=== PATIENT | male | born 2000 | race Caucasian/White ===

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

== ENCOUNTER 2024-04-07 07:07 | Inpatient (IN) ==
--- OUTSIDE RECORDS SUMMARY | 2024-04-07 07:12 | External Medical Summary | Summary of Care ---
Author Name Unknown Organization [facility] Address [address] [place] [address] Phone [phone] Care Team Providers Care Stretch Press Operator Name Role Phone Ursula Rojas MD Primary Care Provid er Encounter Details Date Type Department Care Team (Late st Contact Info) Description 04/02/2024 Population Health External Data Unspecified Department Allergies No known active allergiesdocumented as of this encounter (statuses as of 04/02/2024) Medications Dexmethylphenidate HCl 10 MG TabletIndications: 1 tab 3 times 1 Tablet. 7 Active Sertraline HCl 100 MG Oral Tablet (Zoloft) TAKE 2 TABLETS BY MOUTH EVERY MORNING 2 Active busPIRone HCl 15 MG Oral Tablet (Buspar) Take 1 Tablet by mouth in the morning and 1 Tablet before bedtime. 2 Active guanFACINE HCl ER 4 MG Oral Tablet Extended Release 24 Hour TAKE 1 TAB BY MOUTH AT 8AM DAILY 2 Active Ondansetron 4 MG Oral Tablet Disintegrating (Zofran)Indication s:Nausea Place 1 Tablet on tongue every 8 hours as needed for Nausea. dissolve on tongue. 15 Tablet 5 Active ProAir HFA 108 (90 Base) MCG/ACT Inhalation Aerosol SolutionIndication s:Viral URI with cough Inhale 2 Puffs by mouth every 4 hours as needed for Wheezing or Shortness of Breath. 18 g 5 Active Benzonatate 100 MG Oral Capsule (Tessalon Perles)Indications :Viral URI with cough Take 1 Capsule by mouth 3 times a day as needed for Cough. Do not cut, crush, or chew. 50 Capsule 1 5 Active documented as of this encounter (statuses as of 04/02/2024) Active Problems Problem Noted Date Diagnosed Date Obesity, morbid (more than 1 00 lbs over ideal weight or BMI > 40) 01/21/2022 Other sleep apnea 07/20/2021 Overview (07/20/2021): Mild. See sleep med from 2018 Other atopic dermatitis 07/02/2010 Overview (01/03/2017): ICD-10 update of inactive term Behavioral problems 12/03/2007 Overview (05/28/2015): ICD-10 update of inactive term Asperger's disorder 08/15/2007 Attention deficit hyperactivity disorder (ADHD) 08/17/2005 Overview (06/04/2015): ICD-10 update of inactive term Nystagmus 1999 documented as of this encounter (statuses as of 04/02/2024) Resolved Problems Problem Noted Date Diagnosed Date Resolved Date Prediabetes 06/20/2017 08/26/2021 Overview: Per Prediabetes protocol #1 Dermatitis 10/08/2009 07/02/2010 Body mass index (BMI) of 120 % to less than 140% of 95th percentile for age in pediatric patient 06/04/2009 01/21/2022 Overview (12/12/2023): Per Obesity Taxonomy ICD-10 update of inactive term Obesity, Class I, BMI 30.0-3 4.9 (see actual BMI) 12/03/2007 06/04/2009 Overview (06/04/2009): Per Obesity Taxonomy Febrile convulsion 12/17/2001 2 documented as of this encounter (statuses as of 04/02/2024) Immunizations Name Administration Dates Next Due COVID-19 mRNA, LNP-s, No Pre serve, 2-Dose Series (Moderna) 08/09/2020,07/12/2020 HPV Vaccine, 4-Valent 10/19/2014 HPV Vaccine, 9-Valent 07/20/2021,12/19/2014 Meningococcal Conjugate Vaccine (Menactra/Menveo ) 09/26/2016,12/10/2010 Seasonal Influenza, PF, 6 M & above, IM , (FluLaval or Fluzone) 01/21/2022 TDAP (age 10 and older)(Boostrix) 09/26/2016 TDAP, Age 7 and older, IM (Adacel) 09/26/2016, Varicella Vaccine (Chicken Pox) 11/03/2008 documented as of this encounter Social History Tobacco Use Types Packs/Day Years Used Date Smoking Tobacco: Former Cigarettes Smokeless Tobacco: Never Alcohol Use Standard Drinks/Week Comments Yes 0 (1 standard drink = 0.6 oz pur e alcohol) Sex and Gender Information Value Date Recorded Sex Assigned at Not on file Legal Sex Male 5:38 AM EST Gender Identity Not on file Sexual Orientation Straight 07/20/2021 11 :18 AM EDT documented as of this encounter Plan of Treatment Health Maintenance Due Date Last Done Comments Depression Screening 10/20/2015 10/19/2014 COVID-19 Vaccine ( season) 2023 08/09/2020, 07/12/2020 Influenza Vaccine (FLU shot) (#1) 2023 01/21/2022 DTap/Tdap Vaccines (9 - Td or Tdap) 09/26/2026 09/26/2016, 09/26/2016, 12/10/2010, Additional history exists Hepatitis B Vaccine Completed 10/17/2000, 1999, 1999 MENINGOCOCCAL (MENACTRA/MENVEO) Completed 09/26/2016, 12/10/2010 HPV (Gardasil) Vaccine Completed , 12/19/2014, 10/19/2014 Pneumococcal Vaccine: Pediatrics (0 to 5 Years) and At-Risk Patients (6 to 18 Years and 19+ Years) Aged Out No longer eligib le based on patient's age to complete this topic documented as of this encounter Medical Devices Not on filedocumented as of this encounter Additional Health Concerns Infection Onset Date Last Indicated Resolved Time RSV 03/28/2024 03/28/2024 documented as of this encounter Care Teams Stretch Press Operator Relationship Specialty Start Date End Date Ursula Rojas MD PCP - General Family Medicine 07/20/21 documented as of this encounter
[2024-04-07] MEDS: ONDANSETRON INJ 2 MG/ML 2 ML VIAL IV STA ×3 (07:46→12:15)
[2024-04-07] MEDS: SODIUM CHLORIDE 0.9% 1,000 ML IV ONE ×2 (07:46→08:22)
[2024-04-07 08:03] LABS: Basophils # (auto) 0.02 K/uL (0.00-0.20); Basophils % (auto) 0.2 %; Hematocrit (blood only) 39.8 % (42.0-52.0); Hemoglobin 14.5 g/dl (14.0-18.0); Immature Granulocytes # (auto) 0.08 K/uL (0.01-0.20); Immature Granulocytes % (auto) 0.8 %; Lymphocytes # (auto) 1.77 K/uL (1.20-3.40); Mean Corpuscular Hgb Conc 36.4 g/dL (32.0-36.0); Mean Corpuscular Volume 74.1 fL (80.0-100.0); Mean Platelet Volume 9.4 fL (9.4-12.4); Monocytes # (auto) 0.97 K/uL (0.11-0.59); Monocytes % (auto) 9.3 %; Neutrophils # (auto) 7.56 K/uL (1.40-6.50); Neutrophils % (auto) 72.7 %; Platelet Count 267 K/uL (130-400); RDW Coefficient of Variation 12.6 % (11.5-14.5); RDW Standard Deviation 33.2 fL (36.4-46.3); Red Blood Count 5.37 M/uL (4.70-6.10)
[2024-04-07 08:12] LABS: Albumin Globulin Ratio 1.7 (0.9-2); Albumin Level 4.5 gm/dl (3.4-5.0); BUN Creatinine Ratio 10.9 (10-20); Bilirubin,Total 1.2 mg/dl (0.2-1.0); Calcium 9.2 mg/dl (8.6-10.3); Creatinine Clr Calc Pharmacy 158.1 ml/min; Globulin 2.6 gm/dl (2.5-4.0); Potassium 2.7 mmol/L (3.5-5.1); Total Protein 7.1 gm/dl (6.0-8.3)
[2024-04-07] MEDS: ALBUT/IPRATROP 3MG/0.5MG NEB 3 ML VIAL NEB STA (08:21)
[2024-04-07] MEDS: POTASSIUM CHLORIDE / WTR 10 MEQ/100 ML PLCT IV SCH (08:22)
[2024-04-07 09:49] LABS: Appearance Urine Clear (Clear); Bacteria Urine Automated None Seen (None Seen); Bilirubin Urine Negative (Negative); Blood Urine Negative (Negative); Cast Urine Automated 0-2 /lpf (0-2); Color Urine Yellow; Epithelial Cell Urine Auto 0-2 /hpf (0-2); Glucose Urine UA Negative (Negative); Ketones Urine 2+ (Negative); Leukocyte Esterase Urine Negative (Negative); Nitrite Urine Negative (Negative); Protein Urine Trace (Negative); RBC Urine Automated 0-2 /hpf (0-2); Specific Gravity Urine 1.018 (1.000-1.030); Urobilinogen Urine Negative (Negative); WBC Urine Automated 0-5 /hpf (0-5); pH Urine 6.5 (4.5-7.5)
[2024-04-07] MEDS: diphenhydrAMINE 50 MG/ML VIAL IV STA (10:41)
--- NOTE | 2024-04-07 11:43 | Ultrasound Report ---
US gallbladder CLINICAL HISTORY: vomiting, elevated LFTs COMPARISON STUDY: 04/04/[address] FINDINGS: Pancreas is obscured by overlying bowel gas. Liver demonstrates diffusely increased echogen icity consistent with fatty liver. Majority of the liver is not well seen. There is normal direction of flow in the portal vein. Gallbladder is unremarkable with no gallstones or gallbladder wall thicke nandini. No pericholecystic fluid or ascites. Common bile duct measures normal diameter of 5 mm. Right k idney shows no hydronephrosis. IMPRESSION: 1. No gallstones or evidence of acute cholecystitis seen. 2. Fatty liver. ACT 112: Negative or not required by law. Electronically signed by: Aristides Bell M.D. 04/07/2024 11:41 AM
[2024-04-07] MEDS: MoRPHine SULFATE 4 MG/ML 1 ML CARP\\VIAL IV STA (12:16)
--- NOTE | 2024-04-07 12:47 | History & Physical Report ---
Date of Service April 07, 2024 Assessment & Plan (1) RSV (respiratory syncytial virus infection): (2) Abnormal LFTs (liver function tests): (3) Acute abdominal pain: (4) Schizophrenia: (5) Major depressive disorder, recurrent, severe with psychotic features: (6) Autism spectrum disorder: (7) ADHD: Plan The patient is a 23-year-old male with a past medical history of autism, ADHD, schizophrenia, depression who presented to the ED on 04/07/2024 with complaints of nausea/vomiting x 3 days, recently diagnosed with RSV. Assessment and plan: Acute abdominal pain Intractable nausea/vomiting/hypokalemia Recent RSV Transaminitis Gallbladder ultrasound unremarkable, elevated LFTs could be secondary to viral illness versus medication induced Chest x-ray on 04/04 negative, supportive care for RSV symptoms, antiemetics Check C. difficile/stool culture/A/P CT, clear liquid diet, Hemoccult stool, consult GI Avoid hepatotoxic medications, continue to trend CMP, replete potassium Hx schizophrenia/depression: Continue buspirone, lurasidone Hx ADHD/autism: Continue Adderall/Zoloft A total of 60 minutes was spent on chart review/facilitating plan of care/reviewing diagnostic data/discussion with consultants History of Present Illness Chief Complaint: Nausea/vomiting Primary Care Provider: Ursula Rojas MD The patient is a 23-year-old male with a past medical history of ADHD, depression, schizophrenia, autism who presents to the ED on 04/07/2024 with complaints of continuous nausea/vomiting over the past 3 days and inability to keep any food down. Patient also complains of abdominal pain Patient reported taking Motrin with no relief over the past 2 days. Pt reports not being able to eat or sleep because of the pain. Reports not being able to eat without vomiting. Reports diarrhea x 4 in the past 24 hours. Reports some blood in the stool, reports bright red blood when he wipes. Denies any GI bleeding in the past. Denies recent use of tylenol or alcohol use. Reports the cough comes and goes. Reports bringing up green and white phlegm. Reports some intermittent SOB. No recent changes in medications. Seen in the ER on 04/04/2024 with complaints of a cough at this time and diagnosed with RSV. Chest x-ray at that time was negative At this time, patient had a gallbladder ultrasound that showed hepatomegaly with hepatic steatosis. AST at this time was 84, ALT was 62, alk phos 108 On arrival to the ER today, AST is elevated at 276, ALT 147, stable total bilirubin 1.2, alk phos within normal limits 84, potassium low at 2.7, sodium 134 Repeat gallbladder ultrasound without evidence of cholecystitis, fatty liver again seen The patient was given IV fluids and IV potassium in the ER Patient be admitted for further management of RSV and intractable nausea/vomiting/abdominal pain Allergies Allergy/AdvReac Type Severity Reaction Status Date / Time latex Allergy Severe Hives/Sweat Unverified 04/07/24 11:48 ing/Swellin g/SOB pollen extracts Allergy Hives Unverified 04/07/24 11:48 Home Medications Medication Instructions Recorded Confirmed Type dexmethylphenidate 10 mg tablet 10 mg PO TID 02/12/18 04/07/24 History guanfacine 4 mg tablet,extended 4 mg PO QAM 11/21/20 04/07/24 History release 24 hr sertraline 100 mg tablet 200 mg PO QAM 11/21/20 04/07/24 History albuterol sulfate 90 mcg/actuation 2 puffs inhalation Q4H PRN 04/04/24 04/07/24 History aerosol inhaler shortness of breath or wheezing benzonatate 100 mg capsule 100 mg PO TID PRN Cough 04/04/24 04/07/24 History buspirone 15 mg tablet 22.5 mg PO BID 04/04/24 04/07/24 History lurasidone 80 mg tablet 80 mg PO QAM 04/04/24 04/07/24 History omega-3 acid ethyl esters 1 gram 1 g PO BID 04/04/24 04/07/24 History capsule ondansetron 4 mg disintegrating 4 mg PO Q8H PRN Nausea And Vomiting 04/04/24 04/07/24 History tablet potassium chloride 20 mEq 20 meq PO DAILY #7 tabs 04/04/24 04/07/24 Rx tablet,extended release ibuprofen 400 mg tablet 400 mg PO Q6H PRN Pain 04/07/24 04/07/24 History Past Med/Surg History Problem List (Updated 04/04/24 @ 18:04 by Yashira Obando) Hypokalemia (Acute) RSV (respiratory syncytial virus infection) (Acute) Abnormal LFTs (liver function tests) (Acute) Nausea and vomiting (Acute) Acute abdominal pain (Acute) Schizophrenia (Chronic) Major depressive disorder, recurrent, severe with psychotic features (Chronic) Autism spectrum disorder (Chronic) ADHD (Chronic) Medical History Autism Surgical History No significant past surgical history Family History Other No pertinent family history Social History Smoking Status: Former smoker Tobacco Type: E-cigarettes / Vaping Do You Dip or Chew Tobacco: No; Hx Alcohol Use: Yes Alcohol type: hard liquor Hx Substance Use: Yes Last Used Substance: Days (ago) Preferred Language: Moldovan Communication Ability: Effective Histology Technologist Required: No Beliefs That Will Affect Care: None Current Living Situation: Parent Other Information That Helps Us Care for You: No Feels Safe at Home: Yes Safety Concerns: Feels Safe At This Time Gender Identity: Male Assistive Devices: None Review of Systems Review of Systems: All systems reviewed & are unremarkable except as noted in HPI & below Physical Exam Constitutional: WD/WN, vitals as above + obese Eyes: PERRL, conjunctivae normal, anicteric sclerae ENMT: external ear and nose normal, oropharynx normal Neck: trachea midline, no thyromegaly Respiratory: normal respiratory effort, lungs clear to auscultation Cardiovascular: RRR, no murmur, no edema Gastrointestinal (Abdomen): normal bowel sounds, soft, nontender, no hepatosplenomegaly (Diffuse tenderness, no guarding, generalized) Percussion/Palpation: + abdomen tender; no guarding Musculoskeletal: no cyanosis or clubbing, extremities motor strength 5/5 Skin: no rashes, warm and dry Neurologic: PERRL, EOMI, accommodation nl, no face palsy, no dysarthria Psychiatric: A+Ox3, euthymic affect Lymphatic: no cervical or axillary lymphadenopathy Results & Data Results & Data Vital Signs (Past 12 Hours) Vital Signs Temp Pulse Pulse Resp BP BP Pulse Ox 04/07/24 11:42 71 22 117/66 98 04/07/24 11:00 97 04/07/24 09:27 79 24 146/83 H 100 04/07/24 08:36 80 18 148/76 H 96 04/07/24 08:06 66 16 96 04/07/24 07:52 64 04/07/24 07:38 74 22 97 04/07/24 07:38 73 22 138/90 97 04/07/24 07:15 36.5 C 91 H 22 186/84 H 98 O2 Del Method 04/07/24 11:42 Room Air 04/07/24 11:00 Room Air 04/07/24 09:27 04/07/24 08:36 Room Air 04/07/24 08:06 Room Air 04/07/24 07:52 04/07/24 07:38 Room Air 04/07/24 07:38 Room Air 04/07/24 07:15 Room Air Diagnostic Findings Laboratory Results WBC 10.40 K/ul (4.8-10.8) 04/07/24 07:30 RBC 5.37 M/uL (4.70-6.10) 04/07/24 07:30 Hgb 14.5 g/dl (14.0-18.0) 04/07/24 07:30 Hct 39.8 % (42.0-52.0) L 04/07/24 07:30 MCV 74.1 fL (80.0-100.0) L 04/07/24 07:30 MCH 27.0 pg (25.0-34.0) 04/07/24 07:30 MCHC 36.4 g/dL (32.0-36.0) H 04/07/24 07:30 RDW Std Deviation 33.2 fL (36.4-46.3) L 04/07/24 07:30 RDW Coeff of [place] 12.6 % (11.5-14.5) 04/07/24 07:30 Plt Count 267 K/uL (130-400) 04/07/24 07:30 MPV 9.4 fL (9.4-12.4) 04/07/24 07:30 Immature Gran % (Auto) 0.8 % 04/07/24 07:30 Neut % (Auto) 72.7 % 04/07/24 07:30 Lymph % (Auto) 17.0 % 04/07/24 07:30 [place] % (Auto) 9.3 % 04/07/24 07:30 Eos % (Auto) 0.0 % 04/07/24 07:30 Baso % (Auto) 0.2 % 04/07/24 07:30 Neut # (Auto) 7.56 K/uL (1.40-6.50) H 04/07/24 07:30 Lymph # (Auto) 1.77 K/uL (1.20-3.40) 04/07/24 07:30 [place] # (Auto) 0.97 K/uL (0.11-0.59) H 04/07/24 07:30 Eos # (Auto) 0.00 K/uL (0.00-0.50) 04/07/24 07:30 Baso # (Auto) 0.02 K/uL (0.00-0.20) 04/07/24 07:30 Immature Gran # (Auto) 0.08 K/uL (0.01-0.20) 04/07/24 07:30 Sodium 134 mmol/L (136-145) L 04/07/24 07:30 Potassium 2.7 mmol/L (3.5-5.1) L 04/07/24 07:30 Chloride 99 mmol/L (98-107) 04/07/24 07:30 Carbon Dioxide 25 mmol/L (21-32) 04/07/24 07:30 Anion Gap 10 (3-11) 04/07/24 07:30 BUN 7 mg/dl (6-23) 04/07/24 07:30 Creatinine 0.64 mg/dl (0.6-1.4) 04/07/24 07:30 Est Cr Clr Drug Dosing 158.1 ml/min 04/07/24 07:30 eGFR 135.57 04/07/24 07:30 BUN/Creatinine Ratio 10.9 (10-20) 04/07/24 07:30 Glucose 112 mg/dl (70-99(Fasting)) H 04/07/24 07:30 Calcium 9.2 mg/dl (8.6-10.3) 04/07/24 07:30 Total Bilirubin 1.2 mg/dl (0.2-1.0) H 04/07/24 07:30 AST 276 U/L (13-39) H 04/07/24 07:30 ALT 147 U/L (7-52) H 04/07/24 07:30 Alkaline Phosphatase 84 U/L (34-104) 04/07/24 07:30 Total Protein 7.1 gm/dl (6.0-8.3) 04/07/24 07:30 Albumin 4.5 gm/dl (3.4-5.0) 04/07/24 07:30 Globulin 2.6 gm/dl (2.5-4.0) 04/07/24 07:30 Albumin/Globulin Ratio 1.7 (0.9-2) 04/07/24 07:30 Urine Color Yellow 04/07/24 09:32 Urine Appearance Clear (Clear) 04/07/24 09:32 Urine pH 6.5 (4.5-7.5) 04/07/24 09:32 Ur Specific [place] 1.018 (1.000-1.030) 04/07/24 09:32 Urine Protein Trace (Negative) H 04/07/24 09:32 Urine Glucose (UA) Negative (Negative) 04/07/24 09:32 Urine Ketones 2+ (Negative) H 04/07/24 09:32 Urine Blood Negative (Negative) 04/07/24 09:32 Urine Nitrite Negative (Negative) 04/07/24 09:32 Urine Bilirubin Negative (Negative) 04/07/24 09:32 Urine Urobilinogen Negative (Negative) 04/07/24 09:32 Ur Leukocyte Esterase Negative (Negative) 04/07/24 09:32 Urine WBC (Auto) 0-5 /hpf (0-5) 04/07/24 09:32 Urine RBC (Auto) 0-2 /hpf (0-2) 04/07/24 09:32 U Hyaline Cast (Auto) 0-2 /lpf (0-2) 04/07/24 09:32 U Epithel Cells (Auto) 0-2 /hpf (0-2) 04/07/24 09:32 Urine Bacteria (Auto) None Seen (None Seen) 04/07/24 09:32 Impressions Gallbladder Ultrasound 04/07/24 09:59 US gallbladder CLINICAL HISTORY: vomiting, elevated LFTs COMPARISON STUDY: 04/04/[address] FINDINGS: Pancreas is obscured by overlying bowel gas. Liver demonstrates diffusely increased echogenicity consistent with fatty liver. Majority of the liver is not well seen. There is normal direction of flow in the portal vein. Gallbladder is unremarkable with no gallstones or gallbladder wall thickening. No pericholecystic fluid or ascites. Common bile duct measures normal diameter of 5 mm. Right kidney shows no hydronephrosis. IMPRESSION: 1. No gallstones or evidence of acute cholecystitis seen. 2. Fatty liver. ACT 112: Negative or not required by law. Electronically signed by: Aristides Bell M.D. 04/07/2024 11:41 AM Supervising Physician Co-Signing Physician Notes Patient is a 23-year-old male with history of schizophrenia, ADHD, depression autism and other medical problems presents with history of worsening nausea, vomiting and abdominal pain since 3 days duration. Patient has been taking Motrin at home to control his pain. His appetite has been significantly decreased. He also reports poor sleep. States having diarrhea and notes to have bright red blood when he wipes. Denies any bleeding issues in the past. He also reports intermittent cough associated with green to white phlegm and some shortness of breath. He was diagnosed to have RSV 3 days ago. History is also obtained from patient's family at bedside. Please review HPI for complete details of presentation. I personally reviewed blood work and imaging studies. Potassium 2.7. LFTs elevated. Troponin normal. Lipase 6. CT chest showed diffuse hepatic steatosis. Patient denies any recent alcohol or Tylenol/ use. Physical Exam: Vitals signs as noted above General Jared morbidly obese, no apparent distress Head: normocephalic, Atraumatic Eyes: normal inspection, EOMI Neck: supple, Trachea midline Respiratory/Chest: Decreased breath sounds, CTA, No accessory muscle use Cardiovascular: S1, S2, No murmur Abdomen/GI:Soft, generalized tender, Bowel sounds present, no guarding or rigidity Extremities/Musculoskeletal:normal inspection, no edema Neurologic/Psych:AAOX3, grossly no focal neurological deficits Skin: normal color, warm Abdominal pain/nausea, vomiting diarrhea likely due to recent RSV infection Rectal bleed Recent RSV infection Transaminitis Hepatic steatosis Hypokalemia due to GI losses Reviewed gallbladder ultrasound, CT abdomen Lipase normal Conservative management for RSV infection Liquid diet for now Monitor H&H IV Protonix GI consulted Pain control, antiemetics as needed Stool studies pending Replete electrolytes as needed Abnormal EKG Initial troponin negative Trend troponin Check resting echo I personally interviewed and examined the patient at bedside. I have reviewed the advanced practitioner's documentation on the date of service referred in note and agree with plan. Patient's care is coordinated with Belinda KRAUS. Please refer to the documentation above for details of patient's presentation and for discussion of other issues. I spent a total [id number] coordinating, documenting, and providing care for this patient excluding time spent in the performance of separately billed services or time spent by another provider/QHP.
[2024-04-07] MEDS: POTASSIUM CHLORIDE CRTAB 20 MEQ TABCR PO STA (13:04)
--- NOTE | 2024-04-07 14:10 | CT Scan Report ---
EXAMINATION: CT of the abdomen and pelvis performed without contrast TECHNIQUE: Helical CT images from the lung bases through the symphysis pubis were obtained without contrast. Coronal and sagittal reformatted images were generated at a workstation for further assessment. Dose reduction techniques were achieved by using automatic exposure control and/or adjustment of mA and/or kV according to patient size and/or use of iterative reconstruction technique. COMPARISON: None HISTORY: Abdominal pain FINDINGS: Lower chest: No consolidation. No pleural effusion or pneumothorax. Liver: No suspicious liver lesions. Diffuse hepatic steatosis. The liver is enlarged measuring 21.2 cm. Gallbladder: No gallstones. No evidence of acute cholecystitis. Spleen: Normal size. Pancreas: No suspicious pancreatic lesions. The pancreatic duct is not dilated. Adrenal glands: No adrenal nodules. Kidneys: No hydronephrosis or obstructing renal stones. Bladder / Pelvic organs: Unremarkable. Bowel: No bowel obstruction. No abnormal bowel wall thickening. The appendix is unremarkable. There is very minimal stool in the colon. The rectal region appears unremarkable. Lymph nodes: No retroperitoneal, mesenteric, or pelvic lymphadenopathy. Peritoneum / Retroperitoneum: No free fluid or air within the abdomen. Vessels: No infrarenal aortic aneurysm. Bones and soft tissues: No suspicious lesion in the bones. IMPRESSION: No acute finding in the abdomen or pelvis. Diffuse hepatic steatosis. Electronically signed by Jonathan Cano 04-07-2024 2:10 PM
[2024-04-07 14:11] LABS: Magnesium 1.7 mg/dl (1.7-2.4)
--- NOTE | 2024-04-07 14:15 | Electrocardiogram Report ---
Test Reason : Blood Pressure : */* mmHG Vent. Rate : 59 BPM Atrial Rate : 59 BPM P-R Int : 156 ms QRS Dur : 100 ms QT Int : 536 ms P-R-T Axes : 28 22 -3 degrees QTcB Int : 530 ms Sinus bradycardia with marked sinus arrhythmia T wave abnormality, consider anterior ischemia Prolonged QT Abnormal ECG When compared with ECG of 01-Jun-2017 10:06, Non-specific change in ST segment in Anterior leads Nonspecific T wave abnormality, worse in Inferior leads T wave inversion now evident in Anterior leads QT has lengthened Confirmed by Kayla Estrada (Samir) on 04/07/2024 2:15:22 PM Referred By: REFERRED SELF Confirmed By: Kayla Estrada
[2024-04-07] MEDS ORDERED: ONDANSETRON INJ 2 MG/ML 2 ML VIAL IV PRN (15:04)
[2024-04-07] MEDS ORDERED: ALBUTEROL HFA 8 GM INHALER INH PRN (15:04)
[2024-04-07] MEDS: MAGNESIUM SULFATE / D5W 1 GM/100 ML BAG IV ONE (15:19)
--- NOTE | 2024-04-07 15:24 | Emergency Department Note ---
Impression & Plan Abdominal pain, ADHD, Autism spectrum disorder, Schizophrenia, Abnormal LFTs (liver function tests) ED Provider Note CHIEF COMPLAINT: Abdominal pain, vomiting HISTORY OF PRESENT ILLNESS: This 23-year-old male patient presents emergency department with complaints of abdominal pain and vomiting. The patient states he began with abdominal pain several days ago. He was in the emergency department 2 days ago and diagnosed with RSV. At that time he was noted to have elevated AST and ALT, ultrasound of the right upper quadrant as well as a CAT scan had been performed. He describes the abdominal pain as diffuse and cramping. Patient began having some vomiting. He complains of some chills and sweats. REVIEW OF SYSTEMS: A review of systems was performed with positives and pertinent negatives listed in the history of present illness. 10 systems were reviewed and are otherwise negative. ALLERGIES: see below MEDICATIONS: see below PMH: see below SOCIAL HISTORY: see below DDx: Influenza, COVID, bowel obstruction, pancreatitis, dehydration, appendicitis, cholecystitis among others. PHYSICAL EXAM: Vital signs reviewed. General: Well-appearing 23-year-old male, in no significant distress. HEENT: No scleral icterus, PERRLA, neck supple. Moist mucous membranes Cardiovascular: Regular rate and rhythm, no extra sounds. Pulmonary: Clear to auscultation bilaterally, normal work of breathing. Abdomen: Soft, mild diffuse abdominal tenderness, no rebound or guarding, nondistended, positive bowel sounds. Musculoskeletal: Atraumatic, no peripheral edema. Neurologic: Patient awake alert and oriented x 3, speech is clear Skin: Warm, dry, no rash EMERGENCY DEPARTMENT COURSE/MDM: This patient was evaluated and appeared to be in some discomfort. IV access was obtained and laboratory work was drawn. The patient was placed on traffic monitor specialist and noted to be in a normal sinus rhythm. He was hydrated with normal saline solution, given IV morphine and Zofran. Laboratory work is significant for mild hyponatremia and hypokalemia. He was given 20 mEq of IV potassium. Ultrasound of the gallbladder was performed and is negative for acute cholecystitis and cholelithiasis. Fatty liver is appreciated. Liver enzymes are elevated with AST of 276 and ALT of 147. Bilirubin is 1.2. These numbers are slightly higher than they were several days ago. Patient had continued pain and required a second dose of IV morphine and additional hydration. Patient's case was discussed with the hospitalist service who will evaluate the patient for admission and further management. Patient and mother are aware of plan and agree. MONITORING: An order for cardiac monitoring was placed and the patient is noted to be in a normal sinus rhythm at 61 beats per minute. RADIOLOGY: Ultrasound gallbladder: IMPRESSION: 1. No gallstones or evidence of acute cholecystitis seen. 2. Fatty liver. EKG: To my interpretation reveals a normal sinus rhythm with sinus arrhythmia at 59 bpm. Nonspecific T wave abnormality, prolonged QT interval at 430. No PVC, no PAC. DISPOSITION: Admission Past Med/Surg History Problem List (Updated 04/13/24 @ 09:47 by Kati Ballesteros MD) Abdominal pain (Acute) Hypokalemia (Acute) RSV (respiratory syncytial virus infection) (Acute) Abnormal LFTs (liver function tests) (Acute) Nausea and vomiting (Acute) Acute abdominal pain (Acute) Schizophrenia (Chronic) Major depressive disorder, recurrent, severe with psychotic features (Chronic) Autism spectrum disorder (Chronic) ADHD (Chronic) Medical History Autism Surgical History No significant past surgical history Family History Other No pertinent family history Social History Smoking Status: Former smoker Tobacco Type: E-cigarettes / Vaping Do You Dip or Chew Tobacco: No; Hx Alcohol Use: Yes Alcohol type: hard liquor Hx Substance Use: Yes Last Used Substance: Days (ago) Preferred Language: Trinidadian Communication Ability: Effective [employer] Supervisor Required: No Beliefs That Will Affect Care: None Current Living Situation: Parent Feels Safe at Home: Yes Gender Identity: Male Assistive Devices: None Allergies Allergies Allergy/AdvReac Type Severity Reaction Status Date / Time latex Allergy Severe Hives/Sweat Unverified 04/07/24 11:48 ing/Swellin g/SOB pollen extracts Allergy Hives Unverified 04/07/24 11:48 Home Meds Home Medications Medication Instructions Recorded Confirmed dexmethylphenidate 10 mg tablet 10 mg PO TID 02/12/18 04/07/24 guanfacine 4 mg tablet,extended 4 mg PO QAM 11/21/20 04/07/24 release 24 hr sertraline 100 mg tablet 200 mg PO QAM 11/21/20 04/07/24 albuterol sulfate 90 mcg/actuation 2 puffs inhalation Q4H PRN 04/04/24 04/07/24 aerosol inhaler shortness of breath or wheezing benzonatate 100 mg capsule 100 mg PO TID PRN Cough 04/04/24 04/07/24 buspirone 15 mg tablet 22.5 mg PO BID 04/04/24 04/07/24 lurasidone 80 mg tablet 80 mg PO QAM 04/04/24 04/07/24 Previous Rx's Medication Instructions Recorded potassium chloride 20 mEq 20 meq PO DAILY #7 tabs 04/04/24 tablet,extended release promethazine 12.5 mg tablet 12.5 mg PO TID PRN nausea and 04/11/24 vomiting #30 tabs Results & Data (ED) Vital Signs Vital Signs - 24 hr 04/07/24 07:15 04/07/24 07:38 04/07/24 07:38 Temperature 36.5 C Temperature Source Temporal Artery Scan Pulse Rate 91 H 74 Pulse Rate [Apical] 73 Pulse Rate from SpO2 Sensor Pulse Rhythm Regular Pulse Rhythm [Apical] Regular Pulse Strength [Apical] Normal Respiratory Rate 22 22 22 Respiratory Effort / Characteristics Non-Labored Non-Labored Spontaneous Respiratory Depth Normal Normal Respiratory Pattern Regular Blood Pressure 186/84 H Blood Pressure [Left Arm] 138/90 Blood Pressure Mean 118 Blood Pressure Mean [Left Arm] 106 Blood Pressure Position [Left Arm] Semi-fowlers Pulse Oximetry 98 97 97 Oxygen Delivery Method Room Air Room Air Room Air Sepsis Recent Fever Within 48 Hours No Sepsis New/Unexplained Change in Mental Status No Sepsis Action Taken by Nursing No Action Required 04/07/24 07:52 04/07/24 08:06 04/07/24 08:36 Temperature Temperature Source Pulse Rate 64 66 80 Pulse Rate [Apical] Pulse Rate from SpO2 Sensor 73 81 Pulse Rhythm Pulse Rhythm [Apical] Pulse Strength [Apical] Respiratory Rate 16 18 Respiratory Effort / Characteristics Respiratory Depth Respiratory Pattern Blood Pressure 148/76 H Blood Pressure [Left Arm] Blood Pressure Mean 100 Blood Pressure Mean [Left Arm] Blood Pressure Position [Left Arm] Pulse Oximetry 96 96 Oxygen Delivery Method Room Air Room Air Sepsis Recent Fever Within 48 Hours Sepsis New/Unexplained Change in Mental Status Sepsis Action Taken by Nursing 04/07/24 09:27 04/07/24 11:00 04/07/24 11:42 Temperature Temperature Source Pulse Rate 79 71 Pulse Rate [Apical] Pulse Rate from SpO2 Sensor 78 76 Pulse Rhythm Pulse Rhythm [Apical] Pulse Strength [Apical] Respiratory Rate 24 22 Respiratory Effort / Characteristics Respiratory Depth Respiratory Pattern Blood Pressure 146/83 H 117/66 Blood Pressure [Left Arm] Blood Pressure Mean 104 83 Blood Pressure Mean [Left Arm] Blood Pressure Position [Left Arm] Pulse Oximetry 100 97 98 Oxygen Delivery Method Room Air Room Air Sepsis Recent Fever Within 48 Hours Sepsis New/Unexplained Change in Mental Status Sepsis Action Taken by Skilled Nursing Medications Current Medication List: was personally reviewed by me Laboratory Data Attestation: I reviewed the patient's lab results. 04/11/24 07:00 04/11/24 07:00 Lab Results 04/07/24 04/07/24 Range/Units 07:30 09:32 WBC 10.40 (4.8-10.8) K/ul RBC 5.37 (4.70-6.10) M/uL Hgb 14.5 (14.0-18.0) g/dl Hct 39.8 L (42.0-52.0) % MCV 74.1 L (80.0-100.0) fL MCH 27.0 (25.0-34.0) pg MCHC 36.4 H (32.0-36.0) g/dL RDW Std Deviation 33.2 L (36.4-46.3) fL RDW Coeff of [place] 12.6 (11.5-14.5) % Plt Count 267 (130-400) K/uL MPV 9.4 (9.4-12.4) fL Immature Gran % (Auto) 0.8 % Neut % (Auto) 72.7 % Lymph % (Auto) 17.0 % [place] % (Auto) 9.3 % Eos % (Auto) 0.0 % Baso % (Auto) 0.2 % Neut # (Auto) 7.56 H (1.40-6.50) K/uL Lymph # (Auto) 1.77 (1.20-3.40) K/uL [place] # (Auto) 0.97 H (0.11-0.59) K/uL Eos # (Auto) 0.00 (0.00-0.50) K/uL Baso # (Auto) 0.02 (0.00-0.20) K/uL Immature Gran # (Auto) 0.08 (0.01-0.20) K/uL Sodium 134 L (136-145) mmol/L Potassium 2.7 L (3.5-5.1) mmol/L Chloride 99 (98-107) mmol/L Carbon Dioxide 25 (21-32) mmol/L Anion Gap 10 (3-11) BUN 7 (6-23) mg/dl Creatinine 0.64 (0.6-1.4) mg/dl Est Cr Clr Drug Dosing 158.1 ml/min eGFR 135.57 BUN/Creatinine Ratio 10.9 (10-20) Glucose 112 H (70-99(Fasting)) mg/dl Calcium 9.2 (8.6-10.3) mg/dl Magnesium 1.7 (1.7-2.4) mg/dl Total Bilirubin 1.2 H (0.2-1.0) mg/dl AST 276 H (13-39) U/L ALT 147 H (7-52) U/L Alkaline Phosphatase 84 (34-104) U/L Total Protein 7.1 (6.0-8.3) gm/dl Albumin 4.5 (3.4-5.0) gm/dl Globulin 2.6 (2.5-4.0) gm/dl Albumin/Globulin Ratio 1.7 (0.9-2) Lipase 6 L (11-82) U/L Urine Color Yellow Urine Appearance Clear (Clear) Urine pH 6.5 (4.5-7.5) Ur Specific [place] 1.018 (1.000-1.030) Urine Protein Trace H (Negative) Urine Glucose (UA) Negative (Negative) Urine Ketones 2+ H (Negative) Urine Blood Negative (Negative) Urine Nitrite Negative (Negative) Urine Bilirubin Negative (Negative) Urine Urobilinogen Negative (Negative) Ur Leukocyte Esterase Negative (Negative) Urine WBC (Auto) 0-5 (0-5) /hpf Urine RBC (Auto) 0-2 (0-2) /hpf U Hyaline Cast (Auto) 0-2 (0-2) /lpf U Epithel Cells (Auto) 0-2 (0-2) /hpf Urine Bacteria (Auto) None Seen (None Seen) Administered Medications Discontinued Medications Albuterol (Albut/Ipratrop 3mg/0.5mg Neb 3 Ml Vial) 3 ml NEB NOW STA; Protocol Stop: 04/07/24 08:14 Last Admin: 04/07/24 08:21 Dose: 3 ml Documented By: Buspirone HCl (Buspirone 7.5 Mg Tab) 22.5 mg PO BID SOULEYMANE Stop: 05/07/24 15:03 Last Admin: 04/11/24 07:53 Dose: 22.5 mg Documented By: Admin: 04/10/24 20:28 Dose: 22.5 mg Documented By: Admin: 04/10/24 09:12 Dose: 22.5 mg Documented By: Admin: 04/09/24 21:16 Dose: 22.5 mg Documented By: Admin: 04/09/24 07:47 Dose: 22.5 mg Documented By: Admin: 04/08/24 20:42 Dose: 22.5 mg Documented By: Admin: 04/08/24 09:20 Dose: 22.5 mg Documented By: Admin: 04/07/24 22:06 Dose: Not Given Documented By: Admin: 04/07/24 17:26 Dose: Not Given Documented By: NOLAN Dexmethylphenidate HCl (Dexmethylphenidate Hcl 10 Mg Tab) 10 mg PO TID@0800,1130,1430 ON LICENSE OF [facility] Stop: 04/22/24 11:29 Last Admin: 04/11/24 14:41 Dose: 10 mg Documented By: Admin: 04/11/24 11:03 Dose: 10 mg Documented By: Admin: 04/11/24 07:52 Dose: 10 mg Documented By: Admin: 04/10/24 14:00 Dose: 10 mg Documented By: Admin: 04/10/24 11:57 Dose: 10 mg Documented By: Admin: 04/10/24 08:20 Dose: 10 mg Documented By: Admin: 04/09/24 15:18 Dose: 10 mg Documented By: Admin: 04/09/24 12:09 Dose: 10 mg Documented By: Admin: 04/09/24 07:46 Dose: 10 mg Documented By: Admin: 04/08/24 13:44 Dose: 10 mg Documented By: Admin: 04/08/24 12:25 Dose: 10 mg Documented By: GENESIS Diphenhydramine HCl (Diphenhydramine 50 Mg/Ml Vial) 50 mg IV NOW STA Stop: 04/07/24 10:37 Last Admin: 04/07/24 10:41 Dose: 50 mg Documented By: Enoxaparin Sodium (Enoxaparin Inj 40 Mg/0.4 Ml Syr) 40 mg SQ QAM SOULEYMANE Stop: 05/11/24 08:59 Last Admin: 04/11/24 07:53 Dose: 40 mg Documented By: RT Guanfacine HCl (Guanfacine Hcl 1 Mg Ertab) 4 mg PO QAM SOULEYMANE Stop: 05/08/24 17:29 Last Admin: 04/11/24 08:55 Dose: 4 mg Documented By: Admin: 04/10/24 08:21 Dose: 4 mg Documented By: Admin: 04/09/24 07:48 Dose: 4 mg Documented By: Admin: 04/08/24 17:52 Dose: 4 mg Documented By: GENESIS Sodium Chloride (Nss) 1,000 mls @ 999 mls/hr IV .Q1H1M ONE Stop: 04/07/24 08:29 Last Infusion: 04/07/24 08:22 Dose: Infused Documented By: Admin: 04/07/24 07:46 Dose: 999 mls/hr Documented By: Potassium Chloride (K Elver / Wtr) 10 meq in 100 mls @ 100 mls/hr IV Q1H SOULEYMANE Stop: 04/07/24 11:14 Last Infusion: 04/07/24 15:44 Dose: Infused Documented By: Admin: 04/07/24 11:40 Dose: 100 mls/hr Documented By: Infusion: 04/07/24 10:41 Dose: Infused Documented By: Admin: 04/07/24 09:41 Dose: 100 mls/hr Documented By: Infusion: 04/07/24 09:41 Dose: Infused Documented By: Admin: 04/07/24 08:22 Dose: 100 mls/hr Documented By: Sodium Chloride (Nss) 1,000 mls @ 999 mls/hr IV .Q1H1M ONE Stop: 04/07/24 09:14 Last Infusion: 04/07/24 11:39 Dose: Infused Documented By: Admin: 04/07/24 08:22 Dose: 999 mls/hr Documented By: Potassium Chloride/Sodium Chloride (Normal Saline W/20 Meq Kcl) 20 meq in 1,000 mls @ 100 mls/hr IV .Q10H SOULEYMANE Stop: 04/08/24 12:44 Last Admin: 04/09/24 02:56 Dose: Not Given Documented By: Infusion: 04/08/24 21:41 Dose: Infused Documented By: Admin: 04/08/24 09:18 Dose: 100 mls/hr Documented By: Infusion: 04/08/24 06:07 Dose: Infused Documented By: Admin: 04/07/24 18:11 Dose: 100 mls/hr Documented By: NOLAN Magnesium Sulfate/Dextrose (Magnesium Sulfate / D5w) 1 gm in 100 mls @ 50 mls/hr IV ONE ONE Stop: 04/07/24 14:42 Last Infusion: 04/07/24 18:19 Dose: Infused Documented By: Admin: 04/07/24 15:19 Dose: 50 mls/hr Documented By: NOLAN Pantoprazole Sodium (Protonix) 40 mg in 10 mls @ 5 mls/min IV BID SOULEYMANE Stop: 05/07/24 20:59 Last Admin: 04/11/24 07:54 Dose: 5 mls/min Documented By: Admin: 04/10/24 20:28 Dose: 5 mls/min Documented By: Admin: 04/10/24 08:22 Dose: 5 mls/min Documented By: Admin: 04/09/24 21:19 Dose: 5 mls/min Documented By: Admin: 04/09/24 07:49 Dose: 5 mls/min Documented By: Admin: 04/08/24 20:48 Dose: 5 mls/min Documented By: Admin: 04/08/24 09:43 Dose: 5 mls/min Documented By: Admin: 04/07/24 21:14 Dose: 5 mls/min Documented By: CHELSEA Promethazine HCl (Phenergan) 6.25 mg in 50.25 mls @ 201 mls/hr IV Q6H PRN PRN Reason: Nausea And Vomiting Stop: 05/07/24 16:48 Last Infusion: 04/08/24 10:00 Dose: Infused Documented By: Admin: 04/08/24 09:43 Dose: 201 mls/hr Documented By: Infusion: 04/08/24 01:35 Dose: Infused Documented By: Admin: 04/08/24 01:20 Dose: 201 mls/hr Documented By: Infusion: 04/07/24 18:19 Dose: Infused Documented By: Admin: 04/07/24 17:34 Dose: 201 mls/hr Documented By: DLS Potassium Chloride (K Elver / Wtr) 10 meq in 100 mls @ 100 mls/hr IV Q1H SOULEYMANE Stop: 04/08/24 12:44 Last Infusion: 04/08/24 14:45 Dose: Infused Documented By: [facility] Admin: 04/08/24 13:45 Dose: 100 mls/hr Documented By: [facility] Infusion: 04/08/24 13:25 Dose: Infused Documented By: [facility] Admin: 04/08/24 12:25 Dose: 100 mls/hr Documented By: [facility] Infusion: 04/08/24 12:11 Dose: Infused Documented By: [facility] Admin: 04/08/24 11:11 Dose: 100 mls/hr Documented By: [facility] Infusion: 04/08/24 10:19 Dose: Infused Documented By: [facility] Admin: 04/08/24 09:19 Dose: 100 mls/hr Documented By: [facility] Potassium Chloride (K Elver / Wtr) 10 meq in 100 mls @ 100 mls/hr IV Q1H SOULEYMANE Stop: 04/09/24 12:29 Last Infusion: 04/09/24 17:27 Dose: Infused Documented By: Admin: 04/09/24 15:10 Dose: 100 mls/hr Documented By: Infusion: 04/09/24 14:18 Dose: Infused Documented By: Admin: 04/09/24 13:18 Dose: 100 mls/hr Documented By: Infusion: 04/09/24 12:59 Dose: Infused Documented By: Admin: 04/09/24 11:59 Dose: 100 mls/hr Documented By: SANDRA Potassium Chloride (K Elver / Wtr) 10 meq in 100 mls @ 100 mls/hr IV ONE ONE Stop: 04/10/24 09:35 Last Infusion: 04/10/24 10:19 Dose: Infused Documented By: Admin: 04/10/24 09:12 Dose: 100 mls/hr Documented By: RT Potassium Chloride (K Elver / Wtr) 10 meq in 100 mls @ 100 mls/hr IV Q1H SOULEYMANE Stop: 04/11/24 13:14 Last Infusion: 04/11/24 13:42 Dose: Infused Documented By: Admin: 04/11/24 12:23 Dose: 100 mls/hr Documented By: Infusion: 04/11/24 12:11 Dose: Infused Documented By: Admin: 04/11/24 11:11 Dose: 100 mls/hr Documented By: RT Ketorolac Tromethamine (Ketorolac Tromethamine 15 Mg/Ml Vial) 15 mg IV NOW ONE Stop: 04/08/24 05:49 Last Admin: 04/08/24 05:40 Dose: 15 mg Documented By: CHELSEA Lurasidone HCl (Lurasidone Hcl 20 Mg Tab) 80 mg PO QAM SOULEYMANE Stop: 05/08/24 08:59 Last Admin: 04/11/24 08:55 Dose: 80 mg Documented By: Admin: 04/10/24 08:20 Dose: 80 mg Documented By: Admin: 04/09/24 07:48 Dose: 80 mg Documented By: Admin: 04/08/24 09:20 Dose: 80 mg Documented By: GENESIS Miscellaneous (Order Awaiting Action - Dexmethylphenidate 10 Mg Tablet) 1 each N/A QS ON LICENSE OF [facility] Stop: 05/07/24 15:59 Last Admin: 04/08/24 09:05 Dose: 1 each Documented By: Admin: 04/08/24 00:16 Dose: Not Given Documented By: Admin: 04/07/24 16:38 Dose: Not Given Documented By: DLS Morphine Sulfate (Morphine Sulfate 4 Mg/Ml 1 Ml Carp\Vial) 4 mg IV NOW STA Stop: 04/07/24 12:04 Last Admin: 04/07/24 12:16 Dose: 4 mg Documented By: MSG Morphine Sulfate (Morphine Sulfate 2 Mg/Ml Carp) 2 mg IV Q6H PRN PRN Reason: Mod-Sev Pain (Scale 4-10) Stop: 04/21/24 15:51 Last Admin: 04/08/24 09:48 Dose: 2 mg Documented By: EDAbdias Admin: 04/08/24 01:20 Dose: 2 mg Documented By: CHELSEA Non-Formulary Medication (Patient's Own Controlled Med 1) 1 each N/A TID@0800,1130,1430 ON LICENSE OF [facility] Stop: 04/22/24 11:29 Last Admin: 04/11/24 14:41 Dose: Not Given Documented By: Admin: 04/11/24 11:03 Dose: Not Given Documented By: Admin: 04/11/24 07:52 Dose: Not Given Documented By: Admin: 04/10/24 14:00 Dose: Not Given Documented By: Admin: 04/10/24 11:57 Dose: Not Given Documented By: Admin: 04/10/24 08:20 Dose: Not Given Documented By: Admin: 04/09/24 15:18 Dose: 1 tab Documented By: Admin: 04/09/24 12:10 Dose: 1 tab Documented By: Admin: 04/09/24 07:46 Dose: 1 tab Documented By: Admin: 04/08/24 13:45 Dose: 1 tab Documented By: Admin: 04/08/24 12:26 Dose: 1 tab Documented By: GENESIS Ondansetron HCl (Ondansetron Inj 2 Mg/Ml 2 Ml Vial) 4 mg IV NOW STA Stop: 04/07/24 07:30 Last Admin: 04/07/24 07:46 Dose: 4 mg Documented By: Ondansetron HCl (Ondansetron Inj 2 Mg/Ml 2 Ml Vial) 4 mg IV NOW STA Stop: 04/07/24 10:37 Last Admin: 04/07/24 10:41 Dose: 4 mg Documented By: Ondansetron HCl (Ondansetron Inj 2 Mg/Ml 2 Ml Vial) 4 mg IV NOW STA Stop: 04/07/24 12:04 Last Admin: 04/07/24 12:15 Dose: 4 mg Documented By: Potassium Chloride (Potassium Chloride Crtab 20 Meq Tabcr) 40 meq PO NOW STA Stop: 04/07/24 12:32 Last Admin: 04/07/24 13:04 Dose: 40 meq Documented By: Potassium Chloride (Potassium Chloride Crtab 20 Meq Tabcr) 40 meq PO NOW STA Stop: 04/09/24 17:57 Last Admin: 04/09/24 18:11 Dose: Not Given Documented By: SANDRA Potassium Chloride (Potassium Chloride Crtab 20 Meq Tabcr) 40 meq PO NOW STA Stop: 04/10/24 08:37 Last Admin: 04/10/24 09:13 Dose: Not Given Documented By: RT Sertraline HCl (Sertraline Hcl 100 Mg Tablet) 200 mg PO QAM ON LICENSE OF [facility] Stop: 05/08/24 08:59 Last Admin: 04/11/24 08:55 Dose: 200 mg Documented By: Admin: 04/10/24 08:21 Dose: 200 mg Documented By: Admin: 04/09/24 07:49 Dose: 200 mg Documented By: Admin: 04/08/24 09:21 Dose: 200 mg Documented By: [facility] Imaging Data Radiologist's Impression: Gallbladder Ultrasound 04/07/24 09:59 US gallbladder CLINICAL HISTORY: vomiting, elevated LFTs COMPARISON STUDY: 04/04/[address] FINDINGS: Pancreas is obscured by overlying bowel gas. Liver demonstrates diffusely increased echogenicity consistent with fatty liver. Majority of the liver is not well seen. There is normal direction of flow in the portal vein. Gallbladder is unremarkable with no gallstones or gallbladder wall thickening. No pericholecystic fluid or ascites. Common bile duct measures normal diameter of 5 mm. Right kidney shows no hydronephrosis. IMPRESSION: 1. No gallstones or evidence of acute cholecystitis seen. 2. Fatty liver. ACT 112: Negative or not required by law. Electronically signed by: Aristides Bell M.D. 04/07/2024 11:41 AM Discharge Plan Visit Data Chief Complaint: Vomiting Stated Complaint: NAUSEA,VOMITING ED Provider: Kati Ballesteros Discharge Problem: Abdominal pain, ADHD, Autism spectrum disorder, Schizophrenia, Abnormal LFTs (liver function tests) Patient Disposition: Admitted As Inpatient Discharge Instructions Interventions: ED Discharge Assessment Last Done: 04/07/24 13:28 Discharge Problem: Abdominal pain Qualifiers: Abdominal location: generalized Qualified Code(s): R10.84 - Generalized abdominal pain ADHD Qualifiers: Attention deficit-hyperactivity disorder type: unspecified Qualified Code(s): F 90.9 - Attention-deficit hyperactivity disorder, unspecified type Schizophrenia Qualifiers: Schizophrenia type: other Qualified Code(s): F20.89 - Other schizophrenia
[2024-04-07] MEDS: busPIRone 7.5 MG TAB PO SCH (17:26)
[2024-04-07] MEDS: PROMETHAZINE 6.25 MG/50.25 ML BAG IV PRN (17:34)
[2024-04-07] MEDS: NSS + 20MEQ KCL 20 MEQ/1,000 ML BAG IV SCH (18:11)
[2024-04-07 19:09] LABS: Adenovirus F 40/41 PCR Not Detected (NotDetected); Astrovirus PCR Not Detected (NotDetected); Campylobacter PCR Not Detected (NotDetected); Cryptosporidium PCR Not Detected (NotDetected); Cyclospora cayetanensis PCR Not Detected (NotDetected); Entamoeba histolytica PCR Not Detected (NotDetected); Enteroaggregative E.coli(EAEC) Not Detected (NotDetected); Enteropathogenic E.coli (EPEC) Not Detected (NotDetected); Enterotoxigenic E.coli (ETEC) Not Detected (NotDetected); Giardia lamblia PCR Not Detected (NotDetected); Plesiomonas shigelloides PCR Not Detected (NotDetected); Rotavirus A PCR Not Detected (NotDetected); Salmonella PCR Not Detected (NotDetected); Sapovirus PCR Not Detected (NotDetected); Shiga-like Toxin E.coli (STEC) Not Detected (NotDetected); Shigella/Enteroinvasive E.coli Not Detected (NotDetected); Vibrio cholerae PCR Not Detected (NotDetected); Vibrio species PCR Not Detected (NotDetected); Yersinia enterocolitica PCR Not Detected (NotDetected)
[2024-04-07 19:13] LABS: Norovirus GI/GII PCR DETECTED (NotDetected)
[2024-04-07] MEDS: PANTOprazole 40 MG/10 ML SYR IV SCH (21:14)
[2024-04-07 21:28] LABS: Hematocrit (blood only) 35.8 % (42.0-52.0)
[2024-04-07 21:45] LABS: BUN Creatinine Ratio 7.4 (10-20); Creatinine Clr Calc Pharmacy 233.1 ml/min; Potassium 2.6 mmol/L (3.5-5.1)
[2024-04-08] MEDS: MoRPHine SULFATE 2 MG/ML CARP IV PRN (01:20)
[2024-04-08] MEDS: KETOROLAC TROMETHAMINE 15 MG/ML VIAL IV ONE (05:40)
[2024-04-08] MEDS ORDERED: ACETAMINOPHEN 500 MG TAB PO PRN (05:49)
[2024-04-08] MEDS ORDERED: oxyCODONE HCL IR 5 MG TAB (IMMEDIATE RELEASE) PO PRN (05:50)
[2024-04-08 06:22] LABS: Basophils # (auto) 0.03 K/uL (0.00-0.20); Basophils % (auto) 0.4 %; Eosinophils # (auto) 0.03 K/uL (0.00-0.50); Eosinophils % (auto) 0.4 %; Hematocrit (blood only) 38.2 % (42.0-52.0); Hemoglobin 13.4 g/dl (14.0-18.0); Immature Granulocytes # (auto) 0.09 K/uL (0.01-0.20); Immature Granulocytes % (auto) 1.1 %; Lymphocytes # (auto) 1.77 K/uL (1.20-3.40); Lymphocytes % (auto) 21.2 %; Mean Corpuscular Hgb Conc 35.1 g/dL (32.0-36.0); Mean Corpuscular Volume 76.9 fL (80.0-100.0); Mean Platelet Volume 9.7 fL (9.4-12.4); Monocytes # (auto) 0.72 K/uL (0.11-0.59); Monocytes % (auto) 8.6 %; Neutrophils # (auto) 5.69 K/uL (1.40-6.50); Neutrophils % (auto) 68.3 %; Platelet Count 224 K/uL (130-400); RDW Coefficient of Variation 12.8 % (11.5-14.5); RDW Standard Deviation 35.1 fL (36.4-46.3); Red Blood Count 4.97 M/uL (4.70-6.10); White Blood Count 8.33 K/ul (4.8-10.8)
[2024-04-08 06:43] LABS: Magnesium 2.2 mg/dl (1.7-2.4)
[2024-04-08 08:39] LABS: BUN Creatinine Ratio 7.4 (10-20); Calcium 8.6 mg/dl (8.6-10.3); Creatinine Clr Calc Pharmacy 233.1 ml/min; Potassium 3.1 mmol/L (3.5-5.1)
[2024-04-08 09:10] LABS: Albumin Globulin Ratio 1.8 (0.9-2); Albumin Level 4.2 gm/dl (3.4-5.0); Bilirubin,Total 0.9 mg/dl (0.2-1.0); Globulin 2.4 gm/dl (2.5-4.0); Total Protein 6.6 gm/dl (6.0-8.3)
[2024-04-08] MEDS: POTASSIUM CHLORIDE / WTR 10 MEQ/100 ML PLCT IV SCH (09:19)
[2024-04-08] MEDS: LURASIDONE HCL 20 MG TAB PO SCH (09:20)
[2024-04-08] MEDS: SERTRALINE HCL 100 MG TABLET PO SCH (09:21)
--- NOTE | 2024-04-08 11:15 | Gastrointestinal Consultation ---
Date of Consultation April 08, 2024 Assessment & Plan (1) Nausea and vomitin23 year old male w/ history of autism, ADHD, schizophrenia, depression and others below who is admitted w/ nausea/vomiting and diarrhea - RSV and norovirus infections There is no report of hematochezia or melena, some blood on toilet tissue with wiping, he is occult negative w/ stable HGB. No plan for inpatient endoscopic evaluation 1. Norovirus, blood on toilet tissue - Conservative management of norovirus - OP colonoscopy - Trend HGB - Monitor output - Antiemetics PRN - PO PPI twice daily 2. Elevated LFTs - Fatty liver on imaging - otherwise CT and ABD US negative - LFTs downtrending - Repeat LFTs tomorrow - If remain elevated, will need full liver serology I spent a total of 60 minutes on the date of service in review of patient's record, and previously obtained information in person and appropriate medical visit, discussion and education of plan, with patient and/or caregiver, placing orders for tests/referral/procedures as medically necessary and documentation of pertinent clinical information in patient's medical records for their visit today. (2) Abnormal LFTs (liver function tests): Supervising Physician Co-Signing Physician Notes I personally saw and examined the patient. I have reviewed the chart and agree with the documentation provided by the W[employer] KNIT OPERATOR including discussion about the assessment, treatment and plan. Briefly, 23 year old male w/ history of autism, ADHD, schizophrenia, depression and others below who is admitted w/ nausea/vomiting recently diagnosed with RSV and NOW with Norovirus - GI was asked to evaluate. He tells me he is hungry. Reports of nausea/vomiting. Denies black or bloody emesis. Reports he has had liquid stools. He denies rectal bleeding to me, however, per documentation there was some concern for rectal bleeding w/ toilet tissue. Suspect his LFTs and diarrhea are related to his norovirus. As he is clinically improving sore his labs and symptoms. No acute role for a colonoscopy. I suspect the rectal bleeding is from hemorrhoids. He can follow-up with GI outpatient. She has no further recommendations we will sign off History of Present Illness Reason for Consultation: abd pain, elevated lfts, rectal bleeding Requesting Physician: Deyanira Garcia MD Attending Physician: Deyanira Garcia MD History of Present Illness 23 year old male w/ history of autism, ADHD, schizophrenia, depression and others below who is admitted w/ nausea/vomiting recently diagnosed with RSV - GI was asked to evaluate. Pt was seen and evaluated, chart reviewed. He tells me he is hungry. Reports of nausea/vomiting. Denies black or bloody emesis. Reports he has had liquid stools. He denies rectal bleeding to me, however, per documentation there was some concern for rectal bleeding w/ toilet tissue. No CP, SOB. Hemoglobin 14.5 --> 13 --> 13.4 Tbili 1.2 --> 0.9 AST 276 --> 133 ALT 147 -->120 ALKP 108 --> 78 Lipase 6 Occult blood: negative Stool PCR: norovirus Rare ETOH, reports last use was on New years, prior to that was summer No new medications Denies tylenol No herbals CTAP 2024: No acute finding in the abdomen or pelvis. ABD US 2024: No gallstones or evidence of acute cholecystitis seen. Fatty liver. Allergies Allergy/AdvReac Type Severity Reaction Status Date / Time latex Allergy Severe Hives/Sweat Unverified 04/07/24 11:48 ing/Swellin g/SOB pollen extracts Allergy Hives Unverified 04/07/24 11:48 Home Medications Medication Instructions Recorded Confirmed Type dexmethylphenidate 10 mg tablet 10 mg PO TID 02/12/18 04/07/24 History guanfacine 4 mg tablet,extended 4 mg PO QAM 11/21/20 04/07/24 History release 24 hr sertraline 100 mg tablet 200 mg PO QAM 11/21/20 04/07/24 History albuterol sulfate 90 mcg/actuation 2 puffs inhalation Q4H PRN 04/04/24 04/07/24 History aerosol inhaler shortness of breath or wheezing benzonatate 100 mg capsule 100 mg PO TID PRN Cough 04/04/24 04/07/24 History buspirone 15 mg tablet 22.5 mg PO BID 04/04/24 04/07/24 History lurasidone 80 mg tablet 80 mg PO QAM 04/04/24 04/07/24 History omega-3 acid ethyl esters 1 gram 1 g PO BID 04/04/24 04/07/24 History capsule ondansetron 4 mg disintegrating 4 mg PO Q8H PRN Nausea And Vomiting 04/04/24 04/07/24 History tablet potassium chloride 20 mEq 20 meq PO DAILY #7 tabs 04/04/24 04/07/24 Rx tablet,extended release ibuprofen 400 mg tablet 400 mg PO Q6H PRN Pain 04/07/24 04/07/24 History Patient History Medical History Autism Surgical History No significant past surgical history Family History Other No pertinent family history Social History Smoking Status: Former smoker Tobacco Type: E-cigarettes / Vaping Do You Dip or Chew Tobacco: No; Hx Alcohol Use: Yes Alcohol type: hard liquor Hx Substance Use: Yes Last Used Substance: Days (ago) Preferred Language: Slovak Communication Ability: Effective Book Illustrator Required: No Beliefs That Will Affect Care: None Current Living Situation: Parent Other Information That Helps Us Care for You: No Feels Safe at Home: Yes Safety Concerns: Feels Safe At This Time Gender Identity: Male Assistive Devices: None Review of Systems Review of Systems: All other findings negative except as noted in HPI. Physical Exam Constitutional: WD/WN, vitals as above Respiratory: normal respiratory effort Cardiovascular: Rate/Rhythm: regular rate Gastrointestinal (Abdomen): normal bowel sounds, soft, nontender, no hepatosplenomegaly Skin: no rashes, warm and dry Results & Data Vital Signs (Past 12 Hours) Vital Signs Temp Pulse Resp BP Pulse Ox O2 Del Method 04/08/24 07:53 98.8 F 99 H 20 140/84 95 Room Air Laboratory Results 04/08/24 04/07/24 04/07/24 Range/Units 06:06 21:07 17:40 WBC 8.33 (4.8-10.8) K/ul RBC 4.97 (4.70-6.10) M/uL Hgb 13.4 L 13.0 L (14.0-18.0) g/dl Hct 38.2 L 35.8 L (42.0-52.0) % MCV 76.9 L (80.0-100.0) fL MCH 27.0 (25.0-34.0) pg MCHC 35.1 (32.0-36.0) g/dL RDW Std Deviation 35.1 L (36.4-46.3) fL RDW Coeff of [place] 12.8 (11.5-14.5) % Plt Count 224 (130-400) K/uL MPV 9.7 (9.4-12.4) fL Immature Gran % (Auto) 1.1 % Neut % (Auto) 68.3 % Lymph % (Auto) 21.2 % [place] % (Auto) 8.6 % Eos % (Auto) 0.4 % Baso % (Auto) 0.4 % Neut # (Auto) 5.69 (1.40-6.50) K/uL Lymph # (Auto) 1.77 (1.20-3.40) K/uL [place] # (Auto) 0.72 H (0.11-0.59) K/uL Eos # (Auto) 0.03 (0.00-0.50) K/uL Baso # (Auto) 0.03 (0.00-0.20) K/uL Immature Gran # (Auto) 0.09 (0.01-0.20) K/uL Sodium 140 135 L (136-145) mmol/L Potassium 3.1 L 2.6 L (3.5-5.1) mmol/L Chloride 105 102 (98-107) mmol/L Carbon Dioxide 26 24 (21-32) mmol/L Anion Gap 9 9 (3-11) BUN 5 L 5 L (6-23) mg/dl Creatinine 0.68 0.68 (0.6-1.4) mg/dl Est Cr Clr Drug Dosing 233.1 233.1 ml/min eGFR 133.12 133.12 BUN/Creatinine Ratio 7.4 L 7.4 L (10-20) Glucose 109 H 94 (70-99(Fasting)) mg/dl Calcium 8.6 8.0 L (8.6-10.3) mg/dl Magnesium 2.2 (1.7-2.4) mg/dl Total Bilirubin 0.9 (0.2-1.0) mg/dl AST 133 H (13-39) U/L ALT 120 H (7-52) U/L Alkaline Phosphatase 78 (34-104) U/L Troponin I High Sens 6.6 (0-20) pg/ml Total Protein 6.6 (6.0-8.3) gm/dl Albumin 4.2 (3.4-5.0) gm/dl Globulin 2.4 L (2.5-4.0) gm/dl Albumin/Globulin Ratio 1.8 (0.9-2) Lipase (11-82) U/L Stool Occult Bld Scrn Negative (Negative) Stl C. cayetanensis PCR Not Detected (NotDetected) Stool Rotavirus A PCR Not Detected (NotDetected) Stl Adenov F 40/41 PCR Not Detected (NotDetected) Stool Astrovirus (PCR) Not Detected (NotDetected) Stool Campylobacter PCR Not Detected (NotDetected) Stl C. diff Tox B Gene Negative Cdiff Gene (Neg) Stool Cryptosporidium PCR Not Detected (NotDetected) Stl E.coli Shiga Tox PCR Not Detected (NotDetected) Stl Enterotoxigenic E PCR Not Detected (NotDetected) Stool EPEC (PCR) Not Detected (NotDetected) Stool EAEC (PCR) Not Detected (NotDetected) Stl E. histolytica PCR Not Detected (NotDetected) Stool Giardia Lamblia PCR Not Detected (NotDetected) Stool Salmonella PCR Not Detected (NotDetected) Stool Sapovirus (PCR) Not Detected (NotDetected) Stl P. shigelloides PCR Not Detected (NotDetected) Stl Shigella/EIEC PCR Not Detected (NotDetected) St Y.enterocolitica PCR Not Detected (NotDetected) Stool Vibrio (PCR) Not Detected (NotDetected) Stl Vibrio cholerae PCR Not Detected (NotDetected) Stl Norovirus GI/GII PCR DETECTED A* (NotDetected) Acetaminophen (10-30) ug/ml 04/07/24 04/07/24 04/07/24 Range/Units 15:28 15:23 07:30 WBC (4.8-10.8) K/ul RBC (4.70-6.10) M/uL Hgb (14.0-18.0) g/dl Hct (42.0-52.0) % MCV (80.0-100.0) fL MCH (25.0-34.0) pg MCHC (32.0-36.0) g/dL RDW Std Deviation (36.4-46.3) fL RDW Coeff of [place] (11.5-14.5) % Plt Count (130-400) K/uL MPV (9.4-12.4) fL Immature Gran % (Auto) % Neut % (Auto) % Lymph % (Auto) % [place] % (Auto) % Eos % (Auto) % Baso % (Auto) % Neut # (Auto) (1.40-6.50) K/uL Lymph # (Auto) (1.20-3.40) K/uL [place] # (Auto) (0.11-0.59) K/uL Eos # (Auto) (0.00-0.50) K/uL Baso # (Auto) (0.00-0.20) K/uL Immature Gran # (Auto) (0.01-0.20) K/uL Sodium (136-145) mmol/L Potassium (3.5-5.1) mmol/L Chloride (98-107) mmol/L Carbon Dioxide (21-32) mmol/L Anion Gap (3-11) BUN (6-23) mg/dl Creatinine (0.6-1.4) mg/dl Est Cr Clr Drug Dosing ml/min eGFR BUN/Creatinine Ratio (10-20) Glucose (70-99(Fasting)) mg/dl Calcium (8.6-10.3) mg/dl Magnesium 1.7 (1.7-2.4) mg/dl Total Bilirubin (0.2-1.0) mg/dl AST (13-39) U/L ALT (7-52) U/L Alkaline Phosphatase (34-104) U/L Troponin I High Sens 5.3 (0-20) pg/ml Total Protein (6.0-8.3) gm/dl Albumin (3.4-5.0) gm/dl Globulin (2.5-4.0) gm/dl Albumin/Globulin Ratio (0.9-2) Lipase 6 L (11-82) U/L Stool Occult Bld Scrn (Negative) Stl C. cayetanensis PCR (NotDetected) Stool Rotavirus A PCR (NotDetected) Stl Adenov F 40/41 PCR (NotDetected) Stool Astrovirus (PCR) (NotDetected) Stool Campylobacter PCR (NotDetected) Stl C. diff Tox B Gene (Neg) Stool Cryptosporidium PCR (NotDetected) Stl E.coli Shiga Tox PCR (NotDetected) Stl Enterotoxigenic E PCR (NotDetected) Stool EPEC (PCR) (NotDetected) Stool EAEC (PCR) (NotDetected) Stl E. histolytica PCR (NotDetected) Stool Giardia Lamblia PCR (NotDetected) Stool Salmonella PCR (NotDetected) Stool Sapovirus (PCR) (NotDetected) Stl P. shigelloides PCR (NotDetected) Stl Shigella/EIEC PCR (NotDetected) St Y.enterocolitica PCR (NotDetected) Stool Vibrio (PCR) (NotDetected) Stl Vibrio cholerae PCR (NotDetected) Stl Norovirus GI/GII PCR (NotDetected) Acetaminophen < 3 L (10-30) ug/ml PG Care Time/CCT Total # of Minutes Spent Total Time Spent with Patient: Total time spent is greater than 50% in coordination of care (as documented) at patient's floor/unit and/or counseling patient: Coding Level of Care Code 35424 IN/OBS CONSULT LVL 4,60M Diagnoses Nausea and vomiting R11.2 Abnormal LFTs (liver function tests) R79.89
[2024-04-08] MEDS: DEXMETHYLPHENIDATE HCL 10 MG PO SCH (12:25)
[2024-04-08] MEDS: PATIENT'S OWN CONTROLLED MED 1 SCH (12:26)
--- NOTE | 2024-04-08 17:15 | Hospitalist Progress Note ---
Date of Service April 08, 2024 Assessment & Plan (1) RSV (respiratory syncytial virus infection): (2) Abnormal LFTs (liver function tests): (3) Acute abdominal pain: (4) Schizophrenia: (5) Major depressive disorder, recurrent, severe with psychotic features: (6) Autism spectrum disorder: (7) ADHD: Plan Patient is a 23-year-old male with a past medical history of autism, ADHD, schizophrenia, depression who presented to the ED on 04/07/2024 with complaints of nausea/vomiting x 3 days, recently diagnosed with RSV. Intractable nausea and vomiting Norovirus infection Recent RSV Infection Transaminitis Stool Cx positive for norovirus Bofire negative CT abd/pelvis unremarkable Gallbladder US unremarkable IV fluids, supportive care Antiemetics and pain control as needed Advance diet as tolerated GI consulted, appreciate recs Possible GI bleed FOBT negative Monitor h/h On ppi Prolonged qtc QTC prolonged on EKG Pt on multiple psych qtc prolonging meds sparing use of qtc prolonging antiemetics Daily EKGs Echo Continue to monitor Hypokalemia replete as needed Continue other home meds as ordered DVT prophylxais: SCDs with concern for GI bleed Diet: advance as tolerated Dispo: Home once medically stable Admission and Anticipated Discharge Date Admission Date: April 07, 2024 Subjective pt was seen in the Am stated that he had just received pain meds Asking about eating Noting still having many BMs Review of Systems Review of Systems: All systems reviewed & are unremarkable except as noted in Subjective Physical Exam Physical Exam: General: Alert, oriented. No acute distress Psych: Appropriate mood and affect HEENT: NC/AT Chest: Nontender to palpation. CV: RRR Resp: Breath sounds clear bilaterally, no increased effort of breathing Abdomen: Soft, nontender, nondistended Extremities: No edema in lower extremities bilaterally. Results & Data Results & Data Vital Signs (Past 12 Hours) Vital Signs Temp Pulse Resp BP BP Pulse Ox O2 Del Method 04/08/24 16:15 37.2 C 80 21 148/88 H 97 Room Air 04/08/24 07:53 37.1 C 99 H 20 140/84 95 Room Air Diagnostic Findings Gallbladder Ultrasound 04/07/24 09:59 US gallbladder CLINICAL HISTORY: vomiting, elevated LFTs COMPARISON STUDY: 04/04/[address] FINDINGS: Pancreas is obscured by overlying bowel gas. Liver demonstrates diffusely increased echogenicity consistent with fatty liver. Majority of the liver is not well seen. There is normal direction of flow in the portal vein. Gallbladder is unremarkable with no gallstones or gallbladder wall thickening. No pericholecystic fluid or ascites. Common bile duct measures normal diameter of 5 mm. Right kidney shows no hydronephrosis. IMPRESSION: 1. No gallstones or evidence of acute cholecystitis seen. 2. Fatty liver. ACT 112: Negative or not required by law. Electronically signed by: Aristides Bell M.D. 04/07/2024 11:41 AM Abdomen/Pelvis CT 04/07/24 13:17 EXAMINATION: CT of the abdomen and pelvis performed without contrast TECHNIQUE: Helical CT images from the lung bases through the symphysis pubis were obtained without contrast. Coronal and sagittal reformatted images were generated at a workstation for further assessment. Dose reduction techniques were achieved by using automatic exposure control and/or adjustment of mA and/or kV according to patient size and/or use of iterative reconstruction technique. COMPARISON: None HISTORY: Abdominal pain FINDINGS: Lower chest: No consolidation. No pleural effusion or pneumothorax. Liver: No suspicious liver lesions. Diffuse hepatic steatosis. The liver is enlarged measuring 21.2 cm. Gallbladder: No gallstones. No evidence of acute cholecystitis. Spleen: Normal size. Pancreas: No suspicious pancreatic lesions. The pancreatic duct is not dilated. Adrenal glands: No adrenal nodules. Kidneys: No hydronephrosis or obstructing renal stones. Bladder / Pelvic organs: Unremarkable. Bowel: No bowel obstruction. No abnormal bowel wall thickening. The appendix is unremarkable. There is very minimal stool in the colon. The rectal region appears unremarkable. Lymph nodes: No retroperitoneal, mesenteric, or pelvic lymphadenopathy. Peritoneum / Retroperitoneum: No free fluid or air within the abdomen. Vessels: No infrarenal aortic aneurysm. Bones and soft tissues: No suspicious lesion in the bones. IMPRESSION: No acute finding in the abdomen or pelvis. Diffuse hepatic steatosis. Electronically signed by Jonathan Cano 04-07-2024 2:10 PM
[2024-04-09 06:59] LABS: Albumin Globulin Ratio 1.8 (0.9-2); Albumin Level 4.4 gm/dl (3.4-5.0); BUN Creatinine Ratio 6.6 (10-20); Bilirubin,Total 0.8 mg/dl (0.2-1.0); Creatinine Clr Calc Pharmacy 259.9 ml/min; Globulin 2.5 gm/dl (2.5-4.0); Magnesium 2.3 mg/dl (1.7-2.4); Phosphorus 3.8 mg/dl (2.5-4.9); Potassium 3.2 mmol/L (3.5-5.1); Total Protein 6.9 gm/dl (6.0-8.3)
[2024-04-09 08:27] LABS: Basophils # (auto) 0.02 K/uL (0.00-0.20); Basophils % (auto) 0.2 %; Eosinophils % (auto) 2.4 %; Hematocrit (blood only) 38.7 % (42.0-52.0); Hemoglobin 13.8 g/dl (14.0-18.0); Immature Granulocytes % (auto) 1.2 %; Lymphocytes # (auto) 1.84 K/uL (1.20-3.40); Lymphocytes % (auto) 22.4 %; Mean Corpuscular Hemoglobin 27.9 pg (25.0-34.0); Mean Corpuscular Hgb Conc 35.7 g/dL (32.0-36.0); Mean Corpuscular Volume 78.3 fL (80.0-100.0); Mean Platelet Volume 9.5 fL (9.4-12.4); Monocytes # (auto) 0.64 K/uL (0.11-0.59); Monocytes % (auto) 7.8 %; Neutrophils # (auto) 5.43 K/uL (1.40-6.50); Platelet Count 246 K/uL (130-400); RDW Coefficient of Variation 12.7 % (11.5-14.5); RDW Standard Deviation 35.8 fL (36.4-46.3); Red Blood Count 4.94 M/uL (4.70-6.10); White Blood Count 8.23 K/ul (4.8-10.8)
[2024-04-09] MEDS: POTASSIUM CHLORIDE / WTR 10 MEQ/100 ML PLCT IV SCH (11:59)
--- NOTE | 2024-04-09 12:34 | Electrocardiogram Report ---
Test Reason : Blood Pressure : */* mmHG Vent. Rate : 80 BPM Atrial Rate : 80 BPM P-R Int : 154 ms QRS Dur : 96 ms QT Int : 404 ms P-R-T Axes : 28 105 14 degrees QTcB Int : 465 ms Sinus rhythm with marked sinus arrhythmia Rightward axis T wave abnormality, consider anterior ischemia Abnormal ECG When compared with ECG of 07-Apr-2024 12:47, QRS axis Shifted right QT has shortened Confirmed by Kermit Hill ([id number]) on 04/09/2024 12:34:15 PM Referred By: REFERRED SELF Confirmed By: Kermit Hill
--- NOTE | 2024-04-09 12:50 | Electrocardiogram Report ---
Test Reason : Blood Pressure : */* mmHG Vent. Rate : 61 BPM Atrial Rate : 61 BPM P-R Int : 164 ms QRS Dur : 112 ms QT Int : 474 ms P-R-T Axes : 30 32 19 degrees QTcB Int : 477 ms Sinus rhythm with marked sinus arrhythmia T wave abnormality, consider anterior ischemia Prolonged QT Abnormal ECG When compared with ECG of 08-Apr-2024 07:56, (unconfirmed) QRS axis Shifted left Criteria for Inferior infarct are no longer Present Confirmed by Kermit Hill ([id number]) on 04/09/2024 12:49:55 PM Referred By: REFERRED SELF Confirmed By: Kermit Hill
--- NOTE | 2024-04-09 17:02 | Hospitalist Progress Note ---
Date of Service April 09, 2024 Assessment & Plan (1) RSV (respiratory syncytial virus infection): (2) Abnormal LFTs (liver function tests): (3) Acute abdominal pain: (4) Schizophrenia: (5) Major depressive disorder, recurrent, severe with psychotic features: (6) Autism spectrum disorder: (7) ADHD: Plan Patient is a 23-year-old male with a past medical history of autism, ADHD, schizophrenia, depression who presented to the ED on 04/07/2024 with complaints of nausea/vomiting x 3 days, recently diagnosed with RSV. Intractable nausea and vomiting Norovirus infection Recent RSV Infection Transaminitis-improving Stool Cx positive for norovirus Bofire negative CT abd/pelvis unremarkable Gallbladder US unremarkable IV fluids, supportive care Antiemetics and pain control as needed Advance diet as tolerated GI consulted, appreciate recs Possible GI bleed FOBT negative Monitor h/h On ppi Prolonged qtc QTC prolonged on EKG Pt on multiple psych qtc prolonging meds sparing use of qtc prolonging antiemetics Daily EKGs Echo Continue to monitor Hypokalemia replete as needed Continue other home meds as ordered DVT prophylxais: SCDs with concern for GI bleed Diet: advance as tolerated Dispo: Home once medically stable Admission and Anticipated Discharge Date Admission Date: April 07, 2024 Subjective pt was seen in the AM Was very sleepy Noted no further epsiodes of emesis Agreeable to diet advancement Review of Systems Review of Systems: All systems reviewed & are unremarkable except as noted in Subjective Physical Exam Physical Exam: General: Alert, oriented. No acute distress Psych: Appropriate mood and affect HEENT: NC/AT Chest: Nontender to palpation. CV: RRR Resp: Breath sounds clear bilaterally, no increased effort of breathing Abdomen: Soft, nontender, nondistended Extremities: No edema in lower extremities bilaterally. Results & Data Results & Data Vital Signs (Past 12 Hours) Vital Signs Temp Pulse Resp BP Pulse Ox O2 Del Method 04/09/24 13:57 36.4 C L 75 22 140/84 93 Room Air 04/09/24 07:19 37.0 C 70 18 141/87 H 96 Room Air
[2024-04-09] MEDS: POTASSIUM CHLORIDE CRTAB 20 MEQ TABCR PO STA (18:11)
[2024-04-10 06:33] LABS: Albumin Globulin Ratio 1.7 (0.9-2); Albumin Level 4.5 gm/dl (3.4-5.0); BUN Creatinine Ratio 6.6 (10-20); Bilirubin,Total 0.8 mg/dl (0.2-1.0); Creatinine Clr Calc Pharmacy 259.9 ml/min; Globulin 2.7 gm/dl (2.5-4.0); Magnesium 2.2 mg/dl (1.7-2.4); Phosphorus 3.6 mg/dl (2.5-4.9); Total Protein 7.2 gm/dl (6.0-8.3)
[2024-04-10 06:36] LABS: Basophils # (auto) 0.03 K/uL (0.00-0.20); Basophils % (auto) 0.4 %; Eosinophils # (auto) 0.29 K/uL (0.00-0.50); Eosinophils % (auto) 3.5 %; Hematocrit (blood only) 39.5 % (42.0-52.0); Hemoglobin 13.9 g/dl (14.0-18.0); Immature Granulocytes # (auto) 0.09 K/uL (0.01-0.20); Immature Granulocytes % (auto) 1.1 %; Lymphocytes # (auto) 1.66 K/uL (1.20-3.40); Lymphocytes % (auto) 19.9 %; Mean Corpuscular Hemoglobin 27.4 pg (25.0-34.0); Mean Corpuscular Hgb Conc 35.2 g/dL (32.0-36.0); Mean Corpuscular Volume 77.9 fL (80.0-100.0); Mean Platelet Volume 9.3 fL (9.4-12.4); Monocytes # (auto) 0.68 K/uL (0.11-0.59); Monocytes % (auto) 8.2 %; Neutrophils # (auto) 5.58 K/uL (1.40-6.50); Neutrophils % (auto) 66.9 %; Platelet Count 222 K/uL (130-400); RDW Coefficient of Variation 12.5 % (11.5-14.5); Red Blood Count 5.07 M/uL (4.70-6.10); White Blood Count 8.33 K/ul (4.8-10.8)
[2024-04-10] MEDS: POTASSIUM CHLORIDE CRTAB 20 MEQ TABCR PO STA (09:12)
[2024-04-10] MEDS: POTASSIUM CHLORIDE / WTR 10 MEQ/100 ML PLCT IV ONE (09:12)
--- NOTE | 2024-04-10 09:43 | Electrocardiogram Report ---
Test Reason : Blood Pressure : */* mmHG Vent. Rate : 69 BPM Atrial Rate : 69 BPM P-R Int : 160 ms QRS Dur : 98 ms QT Int : 406 ms P-R-T Axes : 31 64 26 degrees QTcB Int : 435 ms Normal sinus rhythm with sinus arrhythmia Possible Left atrial enlargement T wave abnormality, consider anterior ischemia Abnormal ECG When compared with ECG of 09-Apr-2024 06:35, T wave inversion less evident in Anterior leads Confirmed by Kermit Hill ([id number]) on 04/10/2024 9:42:59 AM Referred By: REFERRED SELF Confirmed By: Kermit Hill
--- NOTE | 2024-04-10 14:55 | Hospitalist Progress Note ---
Date of Service April 10, 2024 Assessment & Plan (1) RSV (respiratory syncytial virus infection): (2) Abnormal LFTs (liver function tests): (3) Acute abdominal pain: (4) Schizophrenia: (5) Major depressive disorder, recurrent, severe with psychotic features: (6) Autism spectrum disorder: (7) ADHD: Plan Patient is a 23-year-old male with a past medical history of autism, ADHD, schizophrenia, depression who presented to the ED on 04/07/2024 with complaints of nausea/vomiting x 3 days, recently diagnosed with RSV. #Intractable nausea and vomiting #Norovirus infection #Recent RSV Infection #Transaminitis-improving -Stool Cx positive for norovirus -Bofire negative -CT abd/pelvis unremarkable, Gallbladder US unremarkable -likely norovirus related, is improving Plan: -IV fluids, supportive care -likely discharge tomorrow -Advance diet as tolerated -GI consulted, appreciate recs #Prolonged qtc, resolved -Pt on multiple psych qtc prolonging meds #Hypokalemia replete as needed Feeding/fluids: regular Analgesia: tylenol/oxy Sedation: na Thromboprophylaxis: start lovenox Head up position: na Ulcer prophylaxis: protonix Glycemic control: na Spontaneous breathing trial: room air Bowel care: start miralax prn Indwelling catheter removal: na Deescalation of antibiotics: na I spent a total of 40 minutes in direct patient care, including [id number] time with the patient and/or family, reviewing medical records, ordering and reviewing diagnostic tests, and coordinating care with other healthcare providers. This time includes: history taking, physical examination, medical decision making, counseling, ECG interpretation, imaging interpretation, lab interpretation, orders, and education, excluding time spent in the performance of separately billed services. Admission and Anticipated Discharge Date Admission Date: April 07, 2024 Subjective Patient seen and examined at bedside. Patient is doing okay today. Had some solid food this morning but felt nauseous. Denies abdominal pain or other related symptoms. Review of Systems Review of Systems: CONSTITUTIONAL: Patient denies fevers, chills, sweats and weight changes. EYES: Patient denies any visual symptoms. EARS, NOSE, AND THROAT: No difficulties with hearing. No symptoms of rhinitis or sore throat. CARDIOVASCULAR: Patient denies chest pains, palpitations, orthopnea and paroxysmal nocturnal dyspnea. RESPIRATORY: No dyspnea on exertion, no wheezing or cough. GI: nausea : No urinary hesitancy or dribbling. No nocturia or urinary frequency. No abnormal urethral discharge. MUSCULOSKELETAL: No myalgias or arthralgias. NEUROLOGIC: No chronic headaches, no seizures. Patient denies numbness, tingling or weakness. PSYCHIATRIC: Patient denies problems with mood disturbance. No problems with anxiety. ENDOCRINE: No excessive urination or excessive thirst. DERMATOLOGIC: Patient denies any rashes or skin changes. Physical Exam Physical Exam: Gen: A&O 3 NAD HEENT: NCAT, EOMI, not icteric. External ears normal. No rhinorrhea. Moist mucous membranes. Neck: Supple, full range of motion, no observable masses, No meningeal sign. Lungs: No Respiratory distress. CV: RRR, no edema. Abdomen: Soft, nondistended, No rebound tenderness. MSK: No joint swelling, no redness. Skin: No rashes, petechiae, lesions. Normal color per patient. Neuro: Normal Gait, Grossly intact. Psych: Appropriate for situation. Results & Data Results & Data Vital Signs (Past 12 Hours) Vital Signs Temp Pulse Resp BP Pulse Ox O2 Del Method 04/10/24 08:10 Room Air 04/10/24 07:01 36.3 C L 61 18 113/72 94 Room Air Laboratory Results -personally interpreted, Low potassium of 3, MCV of 78 otherwise labs re assuring Medications Administered Buspirone HCl (Buspirone 7.5 Mg Tab) 22.5 mg PO BID SOULEYMANE Stop: 05/07/24 15:03 Last Admin: 04/10/24 09:12 Dose: 22.5 mg Documented By: Admin: 04/09/24 21:16 Dose: 22.5 mg Documented By: Admin: 04/09/24 07:47 Dose: 22.5 mg Documented By: Admin: 04/08/24 20:42 Dose: 22.5 mg Documented By: Admin: 04/08/24 09:20 Dose: 22.5 mg Documented By: Admin: 04/07/24 22:06 Dose: Not Given Documented By: Admin: 04/07/24 17:26 Dose: Not Given Documented By: DLS Dexmethylphenidate HCl (Dexmethylphenidate Hcl 10 Mg Tab) 10 mg PO TID@0800,1130,1430 SOULEYMANE Stop: 04/22/24 11:29 Last Admin: 04/10/24 14:00 Dose: 10 mg Documented By: Admin: 04/10/24 11:57 Dose: 10 mg Documented By: Admin: 04/10/24 08:20 Dose: 10 mg Documented By: Admin: 04/09/24 15:18 Dose: 10 mg Documented By: Admin: 04/09/24 12:09 Dose: 10 mg Documented By: Admin: 04/09/24 07:46 Dose: 10 mg Documented By: Admin: 04/08/24 13:44 Dose: 10 mg Documented By: Admin: 04/08/24 12:25 Dose: 10 mg Documented By: ED Guanfacine HCl (Guanfacine Hcl 1 Mg Ertab) 4 mg PO QAM SOULEYMANE Stop: 05/08/24 17:29 Last Admin: 04/10/24 08:21 Dose: 4 mg Documented By: Admin: 04/09/24 07:48 Dose: 4 mg Documented By: Admin: 04/08/24 17:52 Dose: 4 mg Documented By: ED Pantoprazole Sodium (Protonix) 40 mg in 10 mls @ 5 mls/min IV BID SOULEYMANE Stop: 05/07/24 20:59 Last Admin: 04/10/24 08:22 Dose: 5 mls/min Documented By: Admin: 04/09/24 21:19 Dose: 5 mls/min Documented By: [facility] Admin: 04/09/24 07:49 Dose: 5 mls/min Documented By: Admin: 04/08/24 20:48 Dose: 5 mls/min Documented By: Admin: 04/08/24 09:43 Dose: 5 mls/min Documented By: Admin: 04/07/24 21:14 Dose: 5 mls/min Documented By: [facility] Promethazine HCl (Phenergan) 6.25 mg in 50.25 mls @ 201 mls/hr IV Q6H PRN PRN Reason: Nausea And Vomiting Stop: 05/07/24 16:48 Last Infusion: 04/08/24 10:00 Dose: Infused Documented By: Admin: 04/08/24 09:43 Dose: 201 mls/hr Documented By: Infusion: 04/08/24 01:35 Dose: Infused Documented By: Admin: 04/08/24 01:20 Dose: 201 mls/hr Documented By: Infusion: 04/07/24 18:19 Dose: Infused Documented By: Admin: 04/07/24 17:34 Dose: 201 mls/hr Documented By: NOLAN Lurasidone HCl (Lurasidone Hcl 20 Mg Tab) 80 mg PO QAM SOULEYMANE Stop: 05/08/24 08:59 Last Admin: 04/10/24 08:20 Dose: 80 mg Documented By: Admin: 04/09/24 07:48 Dose: 80 mg Documented By: Admin: 04/08/24 09:20 Dose: 80 mg Documented By: GENESIS Morphine Sulfate (Morphine Sulfate 2 Mg/Ml Carp) 2 mg IV Q6H PRN PRN Reason: Mod-Sev Pain (Scale 4-10) Stop: 04/21/24 15:51 Last Admin: 04/08/24 09:48 Dose: 2 mg Documented By: Admin: 04/08/24 01:20 Dose: 2 mg Documented By: CHELSEA Non-Formulary Medication (Patient's Own Controlled Med 1) 1 each N/A TID@0800,1130,1430 [facility] Stop: 04/22/24 11:29 Last Admin: 04/10/24 14:00 Dose: Not Given Documented By: Admin: 04/10/24 11:57 Dose: Not Given Documented By: Admin: 04/10/24 08:20 Dose: Not Given Documented By: Admin: 04/09/24 15:18 Dose: 1 tab Documented By: Admin: 04/09/24 12:10 Dose: 1 tab Documented By: Admin: 04/09/24 07:46 Dose: 1 tab Documented By: Admin: 04/08/24 13:45 Dose: 1 tab Documented By: Admin: 04/08/24 12:26 Dose: 1 tab Documented By: GENESIS Sertraline HCl (Sertraline Hcl 100 Mg Tablet) 200 mg PO QAM SOULEYMANE Stop: 05/08/24 08:59 Last Admin: 04/10/24 08:21 Dose: 200 mg Documented By: Admin: 04/09/24 07:49 Dose: 200 mg Documented By: Admin: 04/08/24 09:21 Dose: 200 mg Documented By: GENESIS
[2024-04-10] MEDS ORDERED: ONDANSETRON INJ 2 MG/ML 2 ML VIAL IV PRN (14:57)
[2024-04-10] MEDS ORDERED: POLYETHYLENE (MIRALAX) 17 GM PACK PO PRN (14:59)
[2024-04-11 07:25] VITALS: BP 131/80; PULSE 61; RESP 18; TEMP 98.1; O2SAT 99
[2024-04-11] MEDS: ENOXAPARIN INJ 40 MG/0.4 ML SYR SQ SCH (07:53)
[2024-04-11 08:02] LABS: Basophils # (auto) 0.02 K/uL (0.00-0.20); Basophils % (auto) 0.2 %; Eosinophils # (auto) 0.19 K/uL (0.00-0.50); Eosinophils % (auto) 2.2 %; Hematocrit (blood only) 40.6 % (42.0-52.0); Hemoglobin 14.4 g/dl (14.0-18.0); Immature Granulocytes # (auto) 0.05 K/uL (0.01-0.20); Immature Granulocytes % (auto) 0.6 %; Lymphocytes % (auto) 21.9 %; Mean Corpuscular Hemoglobin 27.2 pg (25.0-34.0); Mean Corpuscular Hgb Conc 35.5 g/dL (32.0-36.0); Mean Corpuscular Volume 76.6 fL (80.0-100.0); Mean Platelet Volume 9.6 fL (9.4-12.4); Monocytes # (auto) 0.74 K/uL (0.11-0.59); Monocytes % (auto) 8.5 %; Neutrophils # (auto) 5.78 K/uL (1.40-6.50); Neutrophils % (auto) 66.6 %; Platelet Count 257 K/uL (130-400); RDW Coefficient of Variation 12.6 % (11.5-14.5); RDW Standard Deviation 34.3 fL (36.4-46.3); White Blood Count 8.68 K/ul (4.8-10.8)
[2024-04-11 08:09] LABS: Albumin Globulin Ratio 1.6 (0.9-2); Albumin Level 4.5 gm/dl (3.4-5.0); BUN Creatinine Ratio 9.7 (10-20); Calcium 9.3 mg/dl (8.6-10.3); Creatinine Clr Calc Pharmacy 255.7 ml/min; Globulin 2.8 gm/dl (2.5-4.0); Magnesium 2.2 mg/dl (1.7-2.4); Phosphorus 4.4 mg/dl (2.5-4.9); Total Protein 7.3 gm/dl (6.0-8.3)
--- NOTE | 2024-04-11 10:09 | Electrocardiogram Report ---
Test Reason : Blood Pressure : */* mmHG Vent. Rate : 68 BPM Atrial Rate : 68 BPM P-R Int : 166 ms QRS Dur : 100 ms QT Int : 424 ms P-R-T Axes : 27 43 19 degrees QTcB Int : 450 ms Normal sinus rhythm with sinus arrhythmia Nonspecific T wave abnormality Abnormal ECG When compared with ECG of 10-Apr-2024 05:49, No significant change Confirmed by Kermit Hill ([id number]) on 04/11/2024 10:08:49 AM Referred By: REFERRED SELF Confirmed By: Kermit Hill
[2024-04-11] MEDS: POTASSIUM CHLORIDE / WTR 10 MEQ/100 ML PLCT IV SCH (11:11)
--- NOTE | 2024-04-11 13:43 | Discharge Summary ---
Discharge Summary Date of Service April 11, 2024 Principal Dx & Hospital Course #1 = Principal Diagnosis (1) RSV (respiratory syncytial virus infection): (2) Abnormal LFTs (liver function tests): (3) Acute abdominal pain: (4) Schizophrenia: (5) Major depressive disorder, recurrent, severe with psychotic features: (6) Autism spectrum disorder: (7) ADHD: Plan Patient is a 23-year-old male with a past medical history of autism, ADHD, schizophrenia, depression who presented to the ED on 04/07/2024 with complaints of nausea/vomiting x 3 days, recently diagnosed with RSV. #Intractable nausea and vomiting #Norovirus infection #Recent RSV Infection #Transaminitis-improving -Stool Cx positive for norovirus -Bofire negative -CT abd/pelvis unremarkable, Gallbladder US unremarkable -likely norovirus related, is improving -tolerating solids at this time Plan: -discharge today #Prolonged qtc, resolved -Pt on multiple psych qtc prolonging meds #Hypokalemia replete as needed Notes For Next Care Provider 3-year-old male with autism, ADHD who presented for intractable nausea and vomiting from home. In the ED noted to have RSV and admitted to medicine for further workup on medicine, IV fluids and supportive care was provided with significant improvement in ability to tolerate p.o. Patient tolerating solids without nausea and vomiting at this time and is medically stable for discharge. Medication Changes From Visit -sent home with phenergan Admission HPI Per Admitting Provider The patient is a 23-year-old male with a past medical history of ADHD, depressio n, schizophrenia, autism who presents to the ED on 04/07/2024 with complaints of continuous nausea/vomiting over the past 3 days and inability to keep any food down. Patient also complains of abdominal pain Patient reported taking Motrin with no relief over the past 2 days. Pt reports not being able to eat or sleep because of the pain. Reports not being able to eat without vomiting. Reports diarrhea x 4 in the past 24 hours. Reports some blood in the stool, reports bright red blood when he wipes. Denies any GI bleeding in the past. Denies recent use of tylenol or alcohol use. Reports the cough comes and goes. Reports bringing up green and white phlegm. Reports some intermittent SOB. No recent changes in medications. Seen in the ER on 04/04/2024 with complaints of a cough at this time and diagnosed with RSV. Chest x-ray at that time was negative At this time, patient had a gallbladder ultrasound that showed hepatomegaly with hepatic steatosis. AST at this time was 84, ALT was 62, alk phos 108 On arrival to the ER today, AST is elevated at 276, ALT 147, stable total bilirubin 1.2, alk phos within normal limits 84, potassium low at 2.7, sodium 134 Repeat gallbladder ultrasound without evidence of cholecystitis, fatty liver again seen The patient was given IV fluids and IV potassium in the ER Patient be admitted for further management of RSV and intractable nausea/vomiting/abdominal pain Discharge Exam Gen: A&O 3 NAD HEENT: NCAT, EOMI, not icteric. External ears normal. No rhinorrhea. Moist mucous membranes. Neck: Supple, full range of motion, no observable masses, No meningeal sign. Lungs: No Respiratory distress. CV: RRR, no edema. Abdomen: Soft, nondistended, No rebound tenderness. MSK: No joint swelling, no redness. Skin: No rashes, petechiae, lesions. Normal color per patient. Neuro: Normal Gait, Grossly intact. Psych: Appropriate for situation. Updated Medication List Medication Instructions Recorded Confirmed Type dexmethylphenidate 10 mg tablet 10 mg PO TID 02/12/18 04/07/24 History guanfacine 4 mg tablet,extended 4 mg PO QAM 11/21/20 04/07/24 History release 24 hr sertraline 100 mg tablet 200 mg PO QAM 11/21/20 04/07/24 History albuterol sulfate 90 mcg/actuation 2 puffs inhalation Q4H PRN 04/04/24 04/07/24 History aerosol inhaler shortness of breath or wheezing benzonatate 100 mg capsule 100 mg PO TID PRN Cough 04/04/24 04/07/24 History buspirone 15 mg tablet 22.5 mg PO BID 04/04/24 04/07/24 History lurasidone 80 mg tablet 80 mg PO QAM 04/04/24 04/07/24 History potassium chloride 20 mEq 20 meq PO DAILY #7 tabs 04/04/24 04/07/24 Rx tablet,extended release promethazine 12.5 mg tablet 12.5 mg PO TID PRN nausea and 04/11/24 Rx vomiting #30 tabs Hospital Stay Data Consultations 04/07/24 12:05 ED Decision to Admit Stat 04/07/24 12:12 ED Decision to Admit Stat 04/07/24 13:18 Consult Gastroenterology Routine Diagnostic Imagining Performed 04/07/24 09:59 US gallbladder Stat 04/07/24 13:17 CT Abdomen and Pelvis [CT abd pelvis wo con] Routine Pending Results Patient Have Any Pending Studies at Discharge: No Discharge Instructions Given to Patient (Per Discharging Provider) 1. Please escalate your diet as tolerated, avoid spicy and hard foods for next few days. 2. Take phenergan as needed for nausea. 3. Stay hydrated. Total Time Total Time Spent Total Time Spent (In Minutes): I spent a total of 35 minutes in direct patient care, including [id number] time with the patient and/or family, reviewing medical records, ordering and reviewing diagnostic tests, and coordinating care with other healthcare providers. This time includes: history taking, physical examination, medical decision making, counseling, ECG interpretation, imaging interpretation, lab interpretation, orders, and education, excluding time spent in the performance of separately billed services.
== END 2024-04-11 16:29 | disposition home or self-care (01) | DRG 392 ==
LOC: ED 07:07 → 3E 12:32 → SUATTDRO 12:32 → 3E 13:28

== ENCOUNTER 2024-05-10 13:57 | Inpatient (IN) ==
[2024-05-10] MEDS: ONDANSETRON INJ 2 MG/ML 2 ML VIAL IV STA (15:06)
[2024-05-10 15:34] LABS: Basophils # (auto) 0.02 K/uL (0.00-0.20); Basophils % (auto) 0.3 %; Eosinophils # (auto) 0.03 K/uL (0.00-0.50); Eosinophils % (auto) 0.5 %; Hematocrit (blood only) 38.9 % (42.0-52.0); Hemoglobin 14.6 g/dl (14.0-18.0); Immature Granulocytes # (auto) 0.03 K/uL (0.01-0.20); Immature Granulocytes % (auto) 0.5 %; Lymphocytes # (auto) 1.24 K/uL (1.20-3.40); Mean Corpuscular Hemoglobin 27.2 pg (25.0-34.0); Mean Corpuscular Hgb Conc 37.5 g/dL (32.0-36.0); Mean Corpuscular Volume 72.4 fL (80.0-100.0); Mean Platelet Volume 9.2 fL (9.4-12.4); Monocytes # (auto) 0.71 K/uL (0.11-0.59); Monocytes % (auto) 11.5 %; Neutrophils # (auto) 4.16 K/uL (1.40-6.50); Neutrophils % (auto) 67.2 %; Platelet Count 273 K/uL (130-400); RDW Coefficient of Variation 11.9 % (11.5-14.5); RDW Standard Deviation 30.3 fL (36.4-46.3); Red Blood Count 5.37 M/uL (4.70-6.10); White Blood Count 6.19 K/ul (4.8-10.8)
[2024-05-10 16:00] LABS: Alanine Aminotransferase 76 U/L (7-52); Albumin Globulin Ratio 1.5 (0.9-2); Albumin Level 4.4 gm/dl (3.4-5.0); Alkaline Phosphatase 82 U/L (34-104); Anion Gap 11 (3-11); Aspartate Aminotransferase 33 U/L (13-39); BUN Creatinine Ratio 10.8 (10-20); Bilirubin,Total 1.5 mg/dl (0.2-1.0); Blood Urea Nitrogen 7 mg/dl (6-23); Calcium 9.3 mg/dl (8.6-10.3); Carbon Dioxide 32 mmol/L (21-32); Chloride 84 mmol/L (98-107); Globulin 2.9 gm/dl (2.5-4.0); Glucose 133 mg/dl (70-99(Fasting)); Lipase 54 U/L (11-82); Potassium 2.3 mmol/L (3.5-5.1); Sodium 127 mmol/L (136-145); Total Protein 7.3 gm/dl (6.0-8.3)
--- NOTE | 2024-05-10 16:49 | Emergency Department Note ---
History of Present Illness General Chief complaint: Vomiting Stated complaint: VOMIT Time Seen by Provider: 05/10/24 16:11 History of Present Illness Patient is a 23-year-old male with past medical history significant for depression, autism spectrum disorder, ADHD and schizophrenia who returns to the emergency department for continued nausea and vomiting since the end of March. Patient provides a history, supplemented by his mother. Patient was first evaluated in the emergency department on 04/04 for evaluation of abdominal pain, nausea, vomiting and diarrhea. At that point, he had recently tested positive for RSV. He was discharged, but returned a few days later and was admitted from 04/07 - 04/11, at which point he was diagnosed with norovirus. He was thoroughly evaluated and seen by GI as an inpatient. On discharge, he reports that he was well for a few days, but symptoms returned, prompting ED visit on 04/18. He was treated and discharged. Mother reports that since being in the ED last, he been seen at his primary care provider's office twice. Ab reports intermittent nausea and vomiting since his last ED visit. He estimates he throws up about 3- 4 times per day. He denies any real abdominal pain at this time. He continues to have loose stools, but it decreased frequency. He estimates 1-2 loose bowel movements per day. He denies any blood in his vomit or in his stool. He is afraid to eat. He is only able to tolerate a few sips of water and diluted sports drinks. Mom states that he has tried applesauce, but otherwise is really not eating or drinking. He has been trialed on Bentyl, Zofran and Phenergan. He has not been able to take his mental health medications due to his vomiting and was told not to by his psychiatrist because he has not been eating. He denies any recent alcohol use, reports last was probably at the beginning of March for the holiday. Previously had used marijuana, estimates the last time he smoked marijuana was in March prior to becoming ill. He has not had had any since. He has not been trialed on any H2 blockers or PPIs. Home Medications Medication Instructions Recorded Confirmed Type dexmethylphenidate 10 mg tablet 10 mg PO TID 02/12/18 05/10/24 History guanfacine 4 mg tablet,extended 4 mg PO QAM 11/21/20 05/10/24 History release 24 hr sertraline 100 mg tablet 200 mg PO QAM 11/21/20 05/10/24 History buspirone 15 mg tablet 22.5 mg PO BID 04/04/24 05/10/24 History lurasidone 80 mg tablet 80 mg PO QAM 04/04/24 05/10/24 History potassium chloride 20 mEq 20 meq PO DAILY #7 tabs 04/04/24 05/10/24 Rx tablet,extended release dicyclomine 10 mg capsule 10 mg PO TID #15 caps 04/15/24 05/10/24 Rx omega-3 acid ethyl esters 1 gram 1 cap PO BID 05/10/24 05/10/24 History capsule promethazine 25 mg rectal 1 mg [place] Q6H PRN Nausea 05/10/24 05/10/24 History suppository Allergies Allergy/AdvReac Type Severity Reaction Status Date / Time latex Allergy Severe Hives/Sweat Unverified 04/07/24 11:48 ing/Swellin g/SOB pollen extracts Allergy Hives Unverified 04/07/24 11:48 Past Med/Surg History Problem List (Updated 05/10/24 @ 21:43 by Yashira Obando) Hyponatremia (Acute) Intractable nausea and vomiting (Acute) Abnormal LFTs (liver function tests) (Acute) Medical History (Updated 05/10/24 @ 21:43 by Yashira Obando) Schizophrenia Major depressive disorder, recurrent, severe with psychotic features Autism spectrum disorder ADHD Surgical History No significant past surgical history Family History Other No pertinent family history Social History Smoking Status: Light tobacco smoker Tobacco Type: E-cigarettes / Vaping Do You Dip or Chew Tobacco: No; Hx Alcohol Use: Yes Alcohol type: hard liquor Hx Substance Use: Yes Prescribed Medications: Marijuana Last Used Substance Other:: 1 month ago Preferred Language: Montenegrin Communication Ability: Effective Music Educator Required: No Beliefs That Will Affect Care: None Current Living Situation: Family Feels Safe at Home: Yes Gender Identity: Male Assistive Devices: None Review of Systems A total of 10 systems reviewed and were otherwise negative Physical Exam Vital Signs Vital Signs - 24 hr 05/10/24 14:49 05/10/24 15:48 05/10/24 16:30 Temperature 36.8 C Temperature Source Skin Pulse Rate 105 H Pulse Rate [Finger] 110 H 87 Pulse Rate from SpO2 Sensor Pulse Rhythm [Finger] Regular Pulse Strength [Finger] Normal Respiratory Rate 18 18 14 Respiratory Effort / Characteristics Non-Labored Spontaneous Respiratory Depth Normal Respiratory Pattern Regular Blood Pressure 104/80 Blood Pressure [Left Arm] 123/78 Blood Pressure [Right Arm] 105/81 Blood Pressure Mean 88 Blood Pressure Mean [Left Arm] 93 Blood Pressure Mean [Right Arm] 89 Blood Pressure Position [Left Arm] Semi-fowlers Pulse Oximetry 97 99 100 Oxygen Delivery Method Room Air Room Air Room Air Sepsis Recent Fever Within 48 Hours No Sepsis New/Unexplained Change in Mental Status No Sepsis Action Taken by Nursing No Action Required 05/10/24 16:54 Temperature Temperature Source Pulse Rate Pulse Rate [Finger] Pulse Rate from SpO2 Sensor 94 H Pulse Rhythm [Finger] Pulse Strength [Finger] Respiratory Rate 16 Respiratory Effort / Characteristics Respiratory Depth Respiratory Pattern Blood Pressure Blood Pressure [Left Arm] Blood Pressure [Right Arm] Blood Pressure Mean Blood Pressure Mean [Left Arm] Blood Pressure Mean [Right Arm] Blood Pressure Position [Left Arm] Pulse Oximetry 98 Oxygen Delivery Method Room Air Sepsis Recent Fever Within 48 Hours Sepsis New/Unexplained Change in Mental Status Sepsis Action Taken by Nursing CONSTITUTIONAL: Patient is an obese 23-year-old male who is awake and alert and laying on the gurney. He is holding an emesis bag, but not actively vomiting. EYES: Pupils equal, round, reactive to light and accommodation. EOMs intact without nystagmus. Sclera are anicteric. ENT: Tympanic membranes intact, with normal landmarks. External canals are clear. Oral and nasopharynx are clear. Mucous membranes are dry, no lesions, tongue and gums appear normal. CARDIOVASCULAR: Regular rate and rhythm. RESPIRATORY: Breath sounds equal and clear to auscultation. GI: Bowel sounds are present. Abdomen is soft, nondistended, diffusely tender to palpation throughout the upper abdomen, without guarding or rebound.. MUSCULOSKELETAL: Full range of motion of extremities x 4 with good strength. No cyanosis, edema, joint tenderness or swelling. No deformity. INTEGUMENTARY: No lesions or rash, normal skin turgor. Course Course The patient was seen and assessed as above. External medical records are reviewed, I am familiar with this patient from his ED visit at the end of March. He returns to the emergency department with ongoing nausea and vomiting. Critical pathways were implemented by nursing staff prior to my assessment of the patient including CBC with differential, CMP, lipase and urinalysis. He was treated with IV Zofran prior to my assessment of the patient. Additional laboratory studies including stool studies and urine toxicology screen were ordered. After my assessment of the patient, he was ordered a liter of normal saline solution bolus, Pepcid 20 mg IV, Phenergan 25 mg IV and Protonix 40 mg IV. He was also ordered K riders 10 mEq x 4. Laboratory studies were available for review when I evaluated the patient in exam room C4. Discussed with patient and his mother that he has electrolyte abnormalities which meet criteria for admission. Discussed admission with patient and he is agreeable. Diagnostics, as interpreted by me: Laboratory studies: Normal white count at 6100, no left shift noted. No anemia. No thrombocytopenia. Sodium 127, potassium 2.3, chloride 84,, dioxide 32, BUN 7 and creatinine 0.65. Mildly elevated total bilirubin at 1.5, minimally elevated ALT at 76, remainder of LFTs within normal limits. Lipase is normal. EKG performed by nursing staff after labs resulted, noted sinus tachycardia, 101 bpm. No acute ischemic changes, QT/QTc 408/529. Patient reviewed with ED housing case manager and consultation placed with the [facility] service, patient reviewed with Moon Ellis PA-C. Please refer to admission H&P and orders for further information. Differential diagnoses entertained included GERD, gastritis, esophagitis, peptic ulcer disease, pancreatitis, biliary pathology, infectious versus inflammatory colitis/enteritis, foodborne illness, electrolyte or metabolic abnormality, dehydration, medication side effect, among others. Administered Medications Dicyclomine HCl (Dicyclomine Hcl 10 Mg Cap) 10 mg PO TID [facility] Stop: 06/09/24 20:59 Last Admin: 05/10/24 20:04 Dose: Not Given Documented By: ELISA Discontinued Medications Sodium Chloride (Nss) 1,000 mls @ 999 mls/hr IV .Q1H1M SOULEYMANE Stop: 05/10/24 17:41 Last Infusion: 05/10/24 17:58 Dose: Infused Documented By: Admin: 05/10/24 16:52 Dose: 999 mls/hr Documented By: ZULEYKA Famotidine (Pepcid 20mg Iv Push) 20 mg in 5 mls @ 2.5 mls/min IV NOW STA Stop: 05/10/24 16:42 Last Admin: 05/10/24 16:53 Dose: 2.5 mls/min Documented By: ZULEYKA Pantoprazole Sodium (Protonix) 40 mg in 10 mls @ 5 mls/min IV NOW ONE Stop: 05/10/24 16:42 Last Admin: 05/10/24 16:55 Dose: 5 mls/min Documented By: ZULEYKA Promethazine HCl (Phenergan) 25 mg in 51 mls @ 204 mls/hr IV NOW STA Stop: 05/10/24 16:55 Last Infusion: 05/10/24 17:12 Dose: Infused Documented By: Admin: 05/10/24 16:57 Dose: 204 mls/hr Documented By: ZULEYKA Potassium Chloride (K Elver / Wtr) 10 meq in 100 mls @ 100 mls/hr IV Q1H SOULEYMANE Stop: 05/10/24 20:44 Last Admin: 05/10/24 20:03 Dose: 50 mls/hr Documented By: Infusion: 05/10/24 20:00 Dose: Infused Documented By: Admin: 05/10/24 18:21 Dose: 100 mls/hr Documented By: Infusion: 05/10/24 18:18 Dose: Infused Documented By: Admin: 05/10/24 17:18 Dose: 100 mls/hr Documented By: ZULEYKA Sodium Chloride (Nss) 1,000 mls @ 999 mls/hr IV .Q1H1M SOULEYMANE Stop: 05/10/24 17:44 Last Infusion: 05/10/24 20:00 Dose: Infused Documented By: Admin: 05/10/24 17:58 Dose: 999 mls/hr Documented By: ZULEYKA Ondansetron HCl (Ondansetron Inj 2 Mg/Ml 2 Ml Vial) 4 mg IV NOW STA Stop: 05/10/24 14:55 Last Admin: 05/10/24 15:06 Dose: 4 mg Documented By: JOHANNY Medical Decision Making Differential Diagnosis See ED course. Medical Records Attestation: I reviewed the patient's medical records. Home Medications Current Medication List: was personally reviewed by me Laboratory Data Attestation: I reviewed the patient's lab results. 05/10/24 15:05 05/10/24 15:05 Lab Results 05/10/24 Range/Units 15:05 WBC 6.19 (4.8-10.8) K/ul RBC 5.37 (4.70-6.10) M/uL Hgb 14.6 (14.0-18.0) g/dl Hct 38.9 L (42.0-52.0) % MCV 72.4 L (80.0-100.0) fL MCH 27.2 (25.0-34.0) pg MCHC 37.5 H (32.0-36.0) g/dL RDW Std Deviation 30.3 L (36.4-46.3) fL RDW Coeff of [place] 11.9 (11.5-14.5) % Plt Count 273 (130-400) K/uL MPV 9.2 L (9.4-12.4) fL Immature Gran % (Auto) 0.5 % Neut % (Auto) 67.2 % Lymph % (Auto) 20.0 % Wilson % (Auto) 11.5 % Eos % (Auto) 0.5 % Baso % (Auto) 0.3 % Neut # (Auto) 4.16 (1.40-6.50) K/uL Lymph # (Auto) 1.24 (1.20-3.40) K/uL Wilson # (Auto) 0.71 H (0.11-0.59) K/uL Eos # (Auto) 0.03 (0.00-0.50) K/uL Baso # (Auto) 0.02 (0.00-0.20) K/uL Immature Gran # (Auto) 0.03 (0.01-0.20) K/uL Sodium 127 L (136-145) mmol/L Potassium 2.3 L* (3.5-5.1) mmol/L Chloride 84 L (98-107) mmol/L Carbon Dioxide 32 (21-32) mmol/L Anion Gap 11 (3-11) BUN 7 (6-23) mg/dl Creatinine 0.65 (0.6-1.4) mg/dl Est Cr Clr Drug Dosing Not Reportable eGFR 134.94 BUN/Creatinine Ratio 10.8 (10-20) Glucose 133 H (70-99(Fasting)) mg/dl Osmolality 258 L (280-300) mOsm/kg Calcium 9.3 (8.6-10.3) mg/dl Total Bilirubin 1.5 H (0.2-1.0) mg/dl AST 33 (13-39) U/L ALT 76 H (7-52) U/L Alkaline Phosphatase 82 (34-104) U/L Total Protein 7.3 (6.0-8.3) gm/dl Albumin 4.4 (3.4-5.0) gm/dl Globulin 2.9 (2.5-4.0) gm/dl Albumin/Globulin Ratio 1.5 (0.9-2) Lipase 54 (11-82) U/L TSH 0.896 (0.300-4.500) uIu/ml MDM Narrative See ED course. Impression & Plan Intractable nausea and vomiting, Hyponatremia Discharge Plan Visit Data Chief Complaint: Vomiting Stated Complaint: VOMIT ED Provider: Austin Christie ED Midlevel Provider: Yashira Obando Discharge Problem: Intractable nausea and vomiting, Hyponatremia Patient Disposition: Admitted As Inpatient Discharge Instructions Interventions: ED Discharge Assessment Last Done: 05/10/24 18:08
[2024-05-10] MEDS: SODIUM CHLORIDE 0.9% 1,000 ML IV SCH ×2 (16:52→17:58)
[2024-05-10] MEDS: FAMOTIDINE 20MG IV PUSH 20 MG/5 ML SYR IV STA (16:53)
[2024-05-10] MEDS: PANTOprazole 40 MG/10 ML SYR IV ONE (16:55)
[2024-05-10] MEDS: PROMETHAZINE 25 MG/51 ML BAG IV STA (16:57)
--- NOTE | 2024-05-10 17:00 | History & Physical Report ---
Date of Service May 10, 2024 Assessment & Plan (1) Intractable nausea and vomiting: (2) Hyponatremia: (3) Hypokalemia: (4) Schizophrenia: (5) Major depressive disorder, recurrent, severe with psychotic features: (6) Autism spectrum disorder: (7) ADHD: Plan This is a 23-year-old male with PMH of spectrum disorder, recent RSV and norovirus and other medical problems listed below who presents with intractable vomiting and found to have hypokalemia and hyponatremia. Intractable nausea and vomiting Ongoing intermittent N/V since admission at the end of March ( RSV + 04/04 and norovirus + 04/07) Transaminitis attributed to norovirus at that time - CT abd/pelvis with fatty liver, abd ultrasound WNL Continue Bentyl, antiemetics, fluids and lyte repletion as below CMP with mildly elevated ALT 76, tbili 1.5 Utox pending (denies marijuana use for >1mo) Routine GI consult given persistent N/V Hypokalemia K 2.3 in setting of poor PO intake Ordered 40 meq K riders in ED, will give an add'l 40 meq this evening with repeat BMP at 2300 Hyponatremia Na 127 in setting of poor PO intake for weeks Serum osm 258, urine osm and lytes pending Given 2 L NSS in ED Repeat BMP this evening Prolonged qtc In the past, admitting EKG pending Has not been taking home psych meds per psychiatrist recommendation until vomiting subsides and he can tolerate solids DVT Ppx: teds, early ambulation Code status: FULL PCP: Bob Dispo: admitted to PCU Patient seen in collaboration with Dr. Rivera. Please see addendum. I spent a total of 50 minutes coordinating, documenting, and providing care for this patient excluding time spent in the performance of separately billed services or time spent by another provider/QHP. History of Present Illness Chief Complaint: vomiting Primary Care Provider: Ursula Rojas MD This is a 23-year-old male with PMH of schizophrenia, autism spectrum disorder, ADD, recent RSV and norovirus and other medical problems listed below who presents with intractable vomiting. Had RSV 04/04 and norovirus 04/07 resulting in admission to our service 04/07-04/11. Saw seen by GI at that time and transaminitis felt to be 2/[address] with fatty liver on imaging, abdominal ultrasound negative. Since discharge home, has really only been able to tolerate a clear diet. Every time he feels he is doing better and eats something bland like applesauce for a day or two, he feels sick and starts to vomit again. No hematemesis. Has only been taking Bentyl PO and Phenergan suppositories out of his home medications; was instructed by psychiatrist to hold all medications for mood and ADD until vomiting subsides. Last vaped marijuana >1 month. Feeling associated generalized weakness. No F/C, abdominal pain, dysuria. Intermittent diarrhea but much less than before. No hematochezia or melena. Allergies Allergy/AdvReac Type Severity Reaction Status Date / Time latex Allergy Severe Hives/Sweat Unverified 04/07/24 11:48 ing/Swellin g/SOB pollen extracts Allergy Hives Unverified 04/07/24 11:48 Home Medications Medication Instructions Recorded Confirmed Type dexmethylphenidate 10 mg tablet 10 mg PO TID 02/12/18 05/10/24 History guanfacine 4 mg tablet,extended 4 mg PO QAM 11/21/20 05/10/24 History release 24 hr sertraline 100 mg tablet 200 mg PO QAM 11/21/20 05/10/24 History buspirone 15 mg tablet 22.5 mg PO BID 04/04/24 05/10/24 History lurasidone 80 mg tablet 80 mg PO QAM 04/04/24 05/10/24 History potassium chloride 20 mEq 20 meq PO DAILY #7 tabs 04/04/24 05/10/24 Rx tablet,extended release dicyclomine 10 mg capsule 10 mg PO TID #15 caps 04/15/24 05/10/24 Rx omega-3 acid ethyl esters 1 gram 1 cap PO BID 05/10/24 05/10/24 History capsule promethazine 25 mg rectal 1 mg [place] Q6H PRN Nausea 05/10/24 05/10/24 History suppository Past Med/Surg History Problem List Hyponatremia (Acute) Intractable nausea and vomiting (Acute) Abnormal LFTs (liver function tests) (Acute) Medical History Schizophrenia Major depressive disorder, recurrent, severe with psychotic features Autism spectrum disorder ADHD Surgical History No significant past surgical history Family History Other No pertinent family history Social History Smoking Status: Light tobacco smoker Tobacco Type: E-cigarettes / Vaping Do You Dip or Chew Tobacco: No; Hx Alcohol Use: Yes Alcohol type: hard liquor Hx Substance Use: Yes Prescribed Medications: Marijuana Last Used Substance Other:: 1 month ago Preferred Language: Bangladeshi Communication Ability: Effective Recreation Technician Required: No Beliefs That Will Affect Care: None Current Living Situation: Family Feels Safe at Home: Yes Gender Identity: Male Assistive Devices: None Review of Systems Review of Systems: At least ten systems reviewed and negative except as noted in the HPI. Physical Exam Physical Exam: Please see Dr. Rivera's addendum for physical exam. Results & Data Results & Data Vital Signs (Past 12 Hours) Vital Signs Temp Pulse Pulse Resp BP BP BP 05/10/24 16:59 90 05/10/24 16:30 87 14 105/81 05/10/24 15:48 110 H 18 123/78 05/10/24 14:49 36.8 C 105 H 18 104/80 Pulse Ox O2 Del Method 05/10/24 16:59 05/10/24 16:30 100 Room Air 05/10/24 15:48 99 Room Air 05/10/24 14:49 97 Room Air Laboratory Results Short CBC 05/10/24 Range/Units 15:05 WBC 6.19 (4.8-10.8) K/ul Hgb 14.6 (14.0-18.0) g/dl Hct 38.9 L (42.0-52.0) % Plt Count 273 (130-400) K/uL BMP 05/10/24 15:05 Sodium 127 L Potassium 2.3 L* Chloride 84 L Carbon Dioxide 32 BUN 7 Creatinine 0.65 Glucose 133 H Calcium 9.3 Liver Function 05/10/24 Range/Units 15:05 Total Bilirubin 1.5 H (0.2-1.0) mg/dl AST 33 (13-39) U/L ALT 76 H (7-52) U/L Alkaline Phosphatase 82 (34-104) U/L Albumin 4.4 (3.4-5.0) gm/dl Code Status & VTE Plan VTE Prophylaxis Plan VTE Prophylaxis will be ordered: Yes Supervising Physician Co-Signing Physician Notes patient seen and examined independently. Discussed with above provider. Patient presents with persistent nausea, vomiting for 1 month; exacerbated more in last 1 week. He reports he has couple of episode of diarrhea every day. He denies fever, chills, chest pain, abdominal pain, blood in vomit or stool. Reports that he has stopped vaping since last 1 month. On physical examination; Constitutional: Alert oriented x 3; not in distress. Respiratory: Bilateral vesicular breath sound Cardiovascular: RRR, no murmur, no edema Vessels: no JVD or carotid bruit Chest: normal inspection of chest Abdomen: Soft, nontender Musculoskeletal: no cyanosis or clubbing, extremities motor strength 5/5 Skin: no rashes, warm and dry normal turgor Neurologic: PERRL, EOMI, accommodation nl, no face palsy, no dysarthria CN's II- XI intact bilaterally and moves all extremities Psychiatric: A+Ox3, euthymic affect Assessment/plan Persistent nausea/vomiting Hypokalemia Hyponatremia Continue IV fluid, replete electrolytes; repeat BMP at 11 PM and in a.m. will replete potassium with 80 mEq and with IV normal saline with potassium Will get GI opinion due to persistent nature of the nausea/vomiting Phenergan as needed for nausea/vomiting Clear liquid diet I have reviewed the advanced practitioner's documentation, and I agree with, and take responsibility for the plan of care I spent a total of 30 minutes coordinating, documenting, and providing care for this patient excluding time spent in the performance of separately billed services. All of the aforementioned completed while collaborating with the assigned advanced practitioner for a full treatment plan (4) Schizophrenia Schizophrenia type: other Qualified Code(s): F20.89 - Other schizophrenia (7) ADHD Attention deficit-hyperactivity disorder type: unspecified Qualified Code(s): F90.9 - Attention-deficit hyperactivity disorder, unspecified type
[2024-05-10] MEDS: POTASSIUM CHLORIDE / WTR 10 MEQ/100 ML PLCT IV SCH ×2 (17:18→23:17)
[2024-05-10 18:14] LABS: Thyroid Stimulating Hormone 0.896 uIu/ml (0.300-4.500)
[2024-05-10] MEDS ORDERED: PROMETHAZINE HCL 25 MG SUPP PR PRN (19:16)
[2024-05-10] MEDS ORDERED: ACETAMINOPHEN 325 MG TAB PO PRN (19:16)
[2024-05-10] MEDS: DICYCLOMINE HCL 10 MG CAP PO SCH (20:04)
[2024-05-10] MEDS: THIAMINE HCL 200 MG in SODIUM CHLORIDE 0.9% 50 ML IV SCH (22:15)
[2024-05-10 23:24] LABS: BUN Creatinine Ratio 8.2 (10-20); Calcium 8.8 mg/dl (8.6-10.3); Potassium 2.2 mmol/L (3.5-5.1)
--- OUTSIDE RECORDS SUMMARY | 2024-05-11 00:41 | External Medical Summary | Summary of Care ---
Author Name Unknown Organization [facility] Address [address] [place] [address] Phone [phone] Care Team Providers Care Registration Manager Name Role Phone Ursula Rojas MD Primary Care Provid er Reason for Visit * Reason Onset Date Comments Order Request 04/14/2024 Encounter Details Date Type Department Care Team (Late st Contact Info) Description 04/14/2024 Telephone [facility] [address] [place] [address] Ursula Rojas MD [address] [place] [address] Order Request Allergies No known active allergiesdocumented as of this encounter (statuses as of 04/15/2024) Medications Dexmethylphenidate HCl 10 MG TabletIndications: 1 [...] 5 Active Benzonatate 100 MG Oral Capsule (Harrison Conde)Indications :Viral URI with cough Take 1 Capsule by mouth 3 times a day as needed for Cough. Do not cut, crush, or chew. 50 Capsule 1 5 Active documented as of this encounter (statuses as of 04/15/2024) Active Problems Problem Noted Date Diagnosed Date [...] as of this encounter (statuses as of 04/15/2024) Resolved Problems Problem Noted Date Diagnosed Date [...] as of this encounter (statuses as of 04/15/2024) Immunizations Name Administration Dates Next Due COVID-19 [...] AM EDT documented as of this encounter Miscellaneous Notes * Telephone Encounter - Ursula Rojas MD - 04/15/2024 11:07 AM EST Please call mom to inform her that the hospital performed a very thorough viral testing panel on 04/04 that was positive for RSV and then another one on 04/07 which was negative (so the RSV resolved itself), but the stool culture was positive for Norovirus which will take 2-4 weeks to resolve. I would not recommend further swabs now. Make an office visit if concerned for ongoing symptoms. * Telephone Encounter - Rosangela Manuel OSA - 04/14/2024 3:38 PM EST Pts mom called asking if an order can be placed for pt to be swabbed for influenza and any other virus. documented in this encounter Plan of Treatment Health Maintenance [...] documented as of this encounter Care Teams Registration Manager Relationship Specialty Start Date End Date Ursula Rojas MD PCP - General Family Medicine 07/20/21 documented as of this encounter
--- OUTSIDE RECORDS SUMMARY | 2024-05-11 00:41 | External Medical Summary | Summary of Care ---
Author Name Unknown Organization [facility] Address [address] [place] [address] Phone [phone] Care Team Providers Care Wastewater Project Engineer Name Role Phone Ursula Rojas MD Primary Care Provid er Reason for Visit * Reason Comments Acute Nausea and vomiting- ongoing x one month Encounter Details Date Type Department Care Team (Late st Contact Info) Description 04/29/2024 1:20 PM EST Office Visit [facility] [address] [place] [phone] JulyAlcides MD [address] [place] [address] Retching* Allergies No known active allergiesdocumented as of this encounter (statuses as of 04/29/2024) Medications Dexmethylphenidate HCl 10 MG TabletIndications:1 tab 3 times 1 Tablet. 2016 Active Sertraline HCl 100 MG Oral Tablet (Zoloft) TAKE 2 TABLETS BY MOUTH EVERY MORNING 2021 Active busPIRone HCl 15 MG Oral Tablet (Buspar) Take 1 Tablet by mouth in the morning and 1 Tablet before bedtime. 2021 Active guanFACINE HCl ER 4 MG Oral Tablet Extended Release 24 Hour TAKE 1 TAB BY MOUTH AT 8AM DAILY 2021 Active Ondansetron 4 MG Oral Tablet Disintegrating (Zofran)Indications :Nausea Place 1 Tablet on tongue every 8 hours as needed for Nausea. dissolve on tongue. 15 Tablet 2024 Active Additional Information Patient not taking.Reported on 04/29/2024 ProAir HFA 108 (90 Base) MCG/ACT Inhalation Aerosol SolutionIndications :Viral URI with cough Inhale 2 Puffs by mouth every 4 hours as needed for Wheezing or Shortness of Breath. 18 g 2024 Active Additional Information Patient not taking.Reported on 04/29/2024 Benzonatate 100 MG Oral Capsule (Tessalon Perles)Indications: Viral URI with cough Take 1 Capsule by mouth 3 times a day as needed for Cough. Do not cut, crush, or chew. 50 Capsule 1 2024 Active Additional Information Patient not taking.Reported on 04/29/2024 [id number] Ethyl Esters 1 GM Oral Capsule (Lovaza) Take 1 Capsule by mouth. 2024 Active Lurasidone HCl 80 MG Oral Tablet (Latuda) Take 1 Tablet by mouth. 2024 Active Dicyclomine HCl 10 MG Oral Capsule (Bentyl)Indications :Acute gastroenteropathy due to Norovirus,History of RSV infection Take 1 Capsule by mouth 4 times a day before meals and at bedtime. 100 Capsule 1 2024 Active Promethazine HCl 25 MG Rectal Suppository (Phenergan)Indicati ons:Retching Administer 1 Suppository into the rectum every 6 hours as needed for Nausea. 20 Suppository 1 2024 Active Promethazine HCl 12.5 MG Oral Tablet (Phenergan)Indicati ons:Acute gastroenteropathy due to Norovirus,History of RSV infection Take 1 Tablet by mouth every 8 hours as needed for Nausea. 30 Tablet 1 04/29 Discontinued Hospital, Clinic, or Other Facility Administered Medication Ordered Dose Route Frequency Start Date End Date Status ondansetron (Zofran) inj 4 mgIndications:Retching 4 mg IM ONCE 04/29/2024 04/29/2024 En ded documented as of this encounter (statuses as of 04/29/2024) Active Problems Problem Noted Date Diagnosed Date [...] as of this encounter (statuses as of 04/29/2024) Resolved Problems Problem Noted Date Diagnosed Date [...] as of this encounter (statuses as of 04/29/2024) Immunizations Name Administration Dates Next Due COVID-19 mRNA, LNP-s, No Pre serve, 2-Dose Series (Moderna) 08/09/2020,07/12/2020 DTaP Dipth/Tet/Acell Pertussis (Infanrix), Peds 05/06/2004,12/19/2000,1999,10/10,1999 HIB Hep B - HIB Hepatitis B (Comvax) 10/17/2000, 1999,1999 HPV Vaccine, 4-Valent 10/19/2014 HPV Vaccine, 9-Valent 07/20/2021,12/19/2014 IPV - Polio Virus Vaccine (Inact) 2004,12/19/2000,1999,08/09 MMR - Measles/Mumps/Rubella Vaccine 05/06/2004,0 06/27/2000 Meningococcal Conjugate Vacc ine (Menactra/Menveo) 09/26/2016,12/10/2010 Pneumococcal Conjugate Vacci ne, 7 Valent 10/17/2000,02/29/2000,1999 Seasonal Influenza, PF, 6 M & above, IM , (FluLaval or Fluzone) 01/21/2022 TDAP (age 10 and older)(Boostrix) 09/26/2016 TDAP, Age 7 and older, IM (Adacel) 09/26/2016, Varicella Vaccine (Chicken Pox) 11/03/2008,06/27 documented as of this encounter Social History [...] AM EDT documented as of this encounter Last Filed Vital Signs Vital Sign Reading Time Taken Comments Blood Pressure - - Pulse - - Temperature 36.4 C (97.5 F) 04/29/2024 1:17 PM ES T Respiratory Rate 16 04/29/2024 1:17 PM EST Oxygen Saturation - - Inhaled Oxygen Concentration - - Weight - - Height - - Body Mass Index - - documented in this encounter Progress Notes * Alcides Henao MD - 04/29/2024 1:24 PM EST Images from the original note were not included. Subjective Ab Ceballos is a 23 year old male that presents for Acute (Nausea and vomiting-ongoing x onemonth) History of Present Illness Ab Ceballos is a 23 year old male who presents with ongoing nausea and vomiting for a month. He has been experiencing persistent nausea and vomiting for approximately five weeks, beginning after a hospital admission for RSV and norovirus from April 07, 2024, to April 11, 2024. Despite receiving supportive care and being discharged with improving symptoms, the nausea and vomiting have persisted, significantly impacting his ability to eat solid foods. Attempts to eat solid foods like mashed potatoes result in vomiting within a few hours. He has been using Promethazine in pill form to manage the vomiting, but finds it difficult to swallow due to the nausea, and sometimes vomits the pill back up. He has also tried Zofran in the past, which also induced vomiting. He has not used rectal Phenergan before. Potassium supplements make him vomit, and he is currently taking diclosamine for stomach issues, although he is unsure of its effectiveness for his nausea. He has been staying hydrated with bottled water and Gatorade, although he does not currently have Powerade. He has been primarily on a liquid diet due to the inability to tolerate solid foods. No diarrhea. He has not had a bowel movement in two to three days, likely due to his limited intakeof solid food. He experiences significant nausea and some abdominal pain, particularly when he getscold. Prior to this episode, he did not have a history of nausea or vomiting, and he describes this as a new issue that began following his viral infections. He has been feeling weak, which he attributes to the prolonged period of illness and inability to maintain a regular diet. Objective Vitals: 04/29/24 1317 Temp: 97.5 F (36.4 C) Resp: 16 Physical Exam Physical Exam Vitals reviewed. Constitutional: General: He is not in acute distress. Cardiovascular: Rate and Rhythm: Normal rate and regular rhythm. Heart sounds: No murmur heard. Pulmonary: Effort: Pulmonary effort is normal. No respiratory distress. Breath sounds: Normal breath sounds. Musculoskeletal: Cervical back: Neck supple. Lymphadenopathy: Cervical: No cervical adenopathy. Neurological: General: No focal deficit present. Mental Status: He is alert. I have reviewed the following results: Results LABS RSV: positive (04/07/2024) Norovirus: positive (04/07/2024) RADIOLOGY Abdominal X-ray: reviewed (04/15/2024) Assessment and Plan Assessment & Plan Post-viral gastroenteropathy Persistent nausea and vomiting for 5 weeks following RSV and Norovirus infection. Limited oral intake with difficulty keeping down oral medications. Failed trials of oral Promethazine and Zofran. -Administer Zofran injection in office today for immediate relief. -Prescribe rectal Phenergan for ongoing management of nausea and vomiting. -Encourage continued hydration with clear liquids. ADHD No changes or concerns discussed. -Continue current management. Obesity No changes or concerns discussed. -Continue current management. Retching (Primary) - ondansetron (Zofran) inj 4 mg - Promethazine HCl 25 MG Rectal Suppository (Phenergan); Administer 1 Suppository into the rectum every 6 hours as needed for Nausea. Wrap-Up Follow Up: Return if symptoms worsen or fail to improve. Text in this note was generated using an [employer] documentation service. I discussed the use of a device to record and summarize our discussion today. All persons present during the encounter consented to its use. documented in this encounter Nursing Notes * Iliana Li LPN - 04/29/2024 1:17 PM EST The patient has been properly identified by confirmation of name and date of . Chief Complaint Patient presents with Acute Nausea and vomiting-ongoing x one month documented in this encounter Plan of Treatment [...] HPV (Gardasil) Vaccine Completed , 12/19/2014, 10/19/2014 Meningitis B Vaccine (Bexsero/Trumemba) Aged Out No longer eligible based on patient's age to complete this topic Pneumococcal Vaccine: Pediatrics (0 to 5 Years) and At-Risk Patients (6 to 18 Years and 19+ Years) Aged Out No longer eligib tony based on patient's age to complete this topic documented as of this encounter Medical Devices Not on filedocumented as of this encounter Visit Diagnoses Diagnosis Retching- Primary Vomiting alone documented in this encounter Administered Medications Inactive Administered Medications - up to 3 most recent administrations Medication Order MAR Action Action Date Dose Rate Site ondansetron (Zofran) inj 4 mg 4 mg, Intramuscular, ONCE, On 04/29/24 at 1415, For 1 doseIndications:Retching Given 04/29/2024 1:50 PM EST 4 mg Dorsogluteal Left documented in this encounter Care Teams Wastewater Project Engineer Relationship Specialty Start Date End Date Ursula Rojas MD [address] [facility] [place] [id number] PCP - General Family Medicine 07/20/21 documented as of this encounter
--- OUTSIDE RECORDS SUMMARY | 2024-05-11 00:41 | External Medical Summary | Summary of Care ---
Author Name Unknown Organization [facility] Address [address] [place] [address] Phone [phone] Care Team Providers Care Insole Bottom Filler Name Role Phone Ursula Rojas MD Primary Care Provid er Reason for Visit * Reason Comments Acute Nausea and vomiting- ongoing x one month Encounter Details Date Type Department Care Team (Late st Contact Info) Description 04/29/2024 1:20 PM EST Office Visit [facility] [address] [place] [phone] JulyAlcides MD [address] [place] [address] Retching* Allergies No known active allergiesdocumented as [...] Additional Information Patient not taking.Reported on 04/29/2024 [id number] Ethyl Esters 1 GM Oral Capsule (Lovaza) [...] in this note was generated using an [employer] documentation service. I discussed the use of [...] Left documented in this encounter Care Teams Insole Bottom Filler Relationship Specialty Start Date End Date [facility]ula Rojas MD [address] [facility] [address] PCP - General Family Medicine 07/20/21 documented as of this encounter
--- OUTSIDE RECORDS SUMMARY | 2024-05-11 00:41 | External Medical Summary | Summary of Care ---
Author Name Unknown Organization [facility] Address [address] [place] [address] Phone [phone] Care Team Providers Care Splitting Machine Feeder Name Role Phone Ursula Rojas MD Primary Care Provid er Reason for Visit * Reason Comments Follow Up Still having vomitin g and diarrhea and this has been happening for 3 weeks now Episodes of vomiting are around 6-8 daily and 2-3 episodes of vomiting Is not eating solid foods, will dink Gatorades and micronesian ice and pops along with jello Encounter Details Date Type Department Care Team (Latest Contact Info) Description 04/19/2024 1:00 PM EST Office Visit [facility] [address] [facility] [place] [address] Ursula Rojas MD [address] [place], [place] [phone] Acute gastroenteropathy due to Norovirus*; History of RSV infection Allergies No known active allergiesdocumented as of this encounter (statuses as of 04/19/2024) Medications Dexmethylphenidate HCl 10 MG TabletIndications:1 tab 3 times 1 Tablet. 05/20/19 17 Active Sertraline HCl 100 MG Oral Tablet (Zoloft) TAKE 2 TABLETS BY MOUTH EVERY MORNING 06/18/19 22 Active busPIRone HCl 15 MG Oral Tablet (Buspar) Take 1 Tablet by mouth in the morning and 1 Tablet before bedtime. 06/23/19 22 Active guanFACINE HCl ER 4 MG Oral Tablet Extended Release 24 Hour TAKE 1 TAB BY MOUTH AT 8AM DAILY 07/01/19 Active Ondansetron 4 MG Oral Tablet Disintegrating (Zofran)Indications: Nausea Place 1 Tablet on tongue every 8 hours as needed for Nausea. dissolve on tongue. 15 Tablet 03/28/19 Active Additional Information Patient not taking.Reported on 04/19/2024 ProAir HFA 108 (90 Base) MCG/ACT Inhalation Aerosol SolutionIndications: Viral URI with cough Inhale 2 Puffs by mouth every 4 hours as needed for Wheezing or Shortness of Breath. 18 g 03/28/19 25 Active Additional Information Patient not taking.Reported on 04/19/2024 Benzonatate 100 MG Oral Capsule (Tessalon Perles)Indications:V iral URI with cough Take 1 Capsule by mouth 3 times a day as needed for Cough. Do not cut, crush, or chew. 50 Capsule 1 03/28/19 Active Additional Information Patient not taking.Reported on 04/19/2024 Promethazine HCl 12.5 MG Oral Tablet (Phenergan)Indicatio ns:Acute gastroenteropathy due to Norovirus,History of RSV infection Take 1 Tablet by mouth. 04/12/19 25 Active [id number]-2-[id number] Ethyl Esters 1 GM Oral Capsule (Lovaza) Take 1 Capsule by mouth. 04/16/19 25 Active Lurasidone HCl 80 MG Oral Tablet (Latuda) Take 1 Tablet by mouth. 04/17/19 25 Active Dicyclomine HCl 10 MG Oral Capsule (Bentyl)Indications: Acute gastroenteropathy due to Norovirus,History of RSV infection Take 1 Capsule by mouth 4 times a day before meals and at bedtime. 100 Capsule 1 04/19/19 25 Active Dicyclomine HCl 10 MG Oral Capsule (Bentyl) Take 1 Capsule by mouth. 04/16/19 25 025 Disconti nued(Ref ill) documented as of this encounter (statuses as of 04/19/2024) Active Problems Problem Noted Date Diagnosed Date [...] as of this encounter (statuses as of 04/19/2024) Resolved Problems Problem Noted Date Diagnosed Date [...] as of this encounter (statuses as of 04/19/2024) Immunizations Name Administration Dates Next Due COVID-19 [...] Smoking Tobacco: Former Cigarettes Smokeless Tobacco: Never Tobacco Cessation:Counseling Given: Not Answered Alcohol Use Standard Drinks/Week Comments Yes 0 [...] Sign Reading Time Taken Comments Blood Pressure 110/86 04/19/2024 12:59 PM EST Pulse 100 04/19/2024 12:59 PM EST Temperature 36.7 C (98.1 F) 04/19/2024 12:[address] Respiratory Rate 16 04/19/2024 12:59 PM EST Oxygen Saturation 98% 04/19/2024 12:59 PM EST Inhaled Oxygen Concentration - - Weight 134.7 kg (297 lb) 04/19/2024 12:59 PM EST Height 175.3 cm (5' 9") 04/19/2024 12:59 PM EST Body Mass Index 43.86 04/19/2024 12:59 PM EST documented in this encounter Progress Notes * Ursula Rojas MD - 04/19/2024 1:19 PM EST ASSESSMENT / PLAN: Ab Ceballos is a 23 year old male with PMHx Mild Sleep apnea, asperger's, adhd, BMI 46, prediabetes, nystagmus - here Gastroenteropathy Moderate - does not appear to have SBO Resume strict Clear liquid diet x 1 week Stop all diet drinks - reviewed how artificial sugars can exacerbate loose stools Follow Up: Return if symptoms worsen or fail to improve. Acute gastroenteropathy due to Norovirus (Primary) - Dicyclomine HCl 10 MG Oral Capsule (Bentyl); Take 1 Capsule by mouth 4 times a day before meals and at bedtime. History of RSV infection - Dicyclomine HCl 10 MG Oral Capsule (Bentyl); Take 1 Capsule by mouth 4 times a day before meals and at bedtime. Follow Up: Return if symptoms worsen or fail to improve. If needed, prefers contact by: Ok to leave message on phone: SUBJECTIVE: Nursing Notes: Lexie Harvey, NACHO 04/19/24 1308 Signed The patient has been properly identified by confirmation of name and date of . Chief Complaint Patient presents with Follow Up Still having vomiting and diarrhea and this has been happening for 3 weeks now Episodes of vomiting are around 6-8 daily and 2-3 episodes of vomiting Is not eating solid foods, will dink Gatorades and micronesian ice and pops along with jello HPI: Ab Ceballos is a 23 year old male. Here for recheck. Here w mom who helps provide history. Dx RSV - 3 wks ago Dx Noro - 2 wks ago Promethazine is "not working" Had nonbloody emesis earlier today Had loose stool earlier today No fevers Eating jello with fruit in it. Was not tolerating solid diet upon discharge from [facility], per patient. . Drinking a lot of gatorade zero Reviewed sources 1- Patient Active Problem List Diagnosis Nystagmus Attention deficit hyperactivity disorder (ADHD) Asperger's disorder Behavioral problems Other atopic dermatitis Other sleep apnea Obesity, morbid (more than 100 lbs over ideal weight or BMI > 40) ([facility] Current Outpatient Medications Medication Sig Dispense Refill Dexmethylphenidate HCl 10 MG Tablet 1 Tablet. Sertraline HCl 100 MG Oral Tablet (Zoloft) TAKE 2 TABLETS BY MOUTH EVERY MORNING busPIRone HCl 15 MG Oral Tablet (Buspar) Take 1 Tablet by mouth in the morning and 1 Tablet before bedtime. guanFACINE HCl ER 4 MG Oral Tablet Extended Release 24 Hour TAKE 1 TAB BY MOUTH AT 8AM DAILY Promethazine HCl 12.5 MG Oral Tablet (Phenergan) Take 1 Tablet by mouth. [id number]-[id number] Ethyl Esters 1 GM Oral Capsule (Lovaza) Take 1 Capsule by mouth. Lurasidone HCl 80 MG Oral Tablet (Latuda) Take 1 Tablet by mouth. Dicyclomine HCl 10 MG Oral Capsule (Bentyl) Take 1 Capsule by mouth 4 times a day before meals and at bedtime. 100 Capsule 1 Ondansetron 4 MG Oral Tablet Disintegrating (Zofran) Place 1 Tablet on tongue every 8 hours as needed for Nausea. dissolve on tongue. (Patient not taking: Reported on 04/19/2024) 15 Tablet 0 ProAir HFA 108 (90 Base) MCG/ACT Inhalation Aerosol Solution Inhale 2 Puffs by mouth every 4 hours as needed for Wheezing or Shortness of Breath. (Patient not taking: Reported on 04/19/2024) 18 g 0 Benzonatate 100 MG Oral Capsule (Harrison Conde) Take 1 Capsule by mouth 3 times a day as needed for Cough. Do not cut, crush, or chew. (Patient not taking: Reported on 04/19/2024) 50 Capsule 1 No current facility-administered medications for this visit. OBJECTIVE: BP 110/86 | Pulse 100 | Temp 98.1 F (36.7 C) | Resp 16 | Ht 5' 9" (1.753 m) | Wt 297 lb (134.7 kg) | SpO2 98% | BMI 43.86 kg/m | BSA 2.56 m Vitals reviewed and is normotensive / afebrile / and not tachycardic General: No acute distress. Neuro: Alert Pleasant & interactive. Respiratory: Good inspiratory effort, no labored breathing. Abd: normoactive BS HEENT: Conjunctivae appear clear. No swelling noted face or lips. Skin: No rash visible on exposed skin areas, normal coloration & appears dry. Psych: Normal affect. Fluent speech. Ursula Rojas MD [facility], [address] [phone] There are no Patient Instructions on file for this visit. documented in this encounter Nursing Notes * Lexie Harvey LPN - 04/19/2024 1:08 PM EST The patient has been properly identified by confirmation of name and date of . Chief Complaint Patient presents with Follow Up Still having vomiting and diarrhea and this has been happening for 3 weeks now Episodes of vomiting are around 6-8 daily and 2-3 episodes of vomiting Is not eating solid foods, will dink Gatorades and micronesian ice and pops along with jello documented in this encounter Plan of Treatment [...] as of this encounter Visit Diagnoses Diagnosis Acute gastroenteropathy due to Norovirus- Primary History of RSV infection Personal history of other infectious and parasitic disease documented in this encounter Additional Health Concerns Infection Onset Date Last Indicated Resolved Time RSV 03/28/2024 03/28/2024 documented as of this encounter Care Teams Splitting Machine Feeder Relationship Specialty Start Date End Date Ursula Rojas MD PCP - General Family Medicine 07/20/21 documented as of this encounter
--- OUTSIDE RECORDS SUMMARY | 2024-05-11 00:41 | External Medical Summary | Summary of Care ---
Author Name Unknown Organization [facility] Address [address] [place] [address] Phone [phone] Care Team Providers Care Sr. Director Name Role Phone Ursula Rojas MD Primary Care Provid er Reason for Visit * Reason Onset Date Comments Order Request 04/14/2024 Encounter Details Date Type Department Care Team (Late st Contact Info) Description 04/14/[address] [facility] [address] [place] [address] Ursula Rojas MD [address] [place] [address] Order Request Allergies No known active allergiesdocumented as of this encounter (statuses as of 04/18/2024) Medications Dexmethylphenidate HCl 10 MG TabletIndications: 1 [...] as of this encounter (statuses as of 04/18/2024) Active Problems Problem Noted Date Diagnosed Date [...] as of this encounter (statuses as of 04/18/2024) Resolved Problems Problem Noted Date Diagnosed Date [...] as of this encounter (statuses as of 04/18/2024) Immunizations Name Administration Dates Next Due COVID-19 [...] encounter Miscellaneous Notes * Telephone Encounter - Lidia Abbott LPN - 04/18/2024 10:04 AM EST I called and spoke with patients mother and she states that she would like to schedule him an appointment as he is not really getting any better. She states that he can not intake any solids without vomiting them up, having ongoing diarrhea and weak. She states when she had him in the ED last they gave him fluids for dehydration and treated him for low potassium levels as well. Transferred out front for scheduling. * Telephone Encounter - Ursula Rojas MD [...] documented in this encounter Plan of Treatment Upcoming Encounters Date Type Department Care Team (Late st Contact Info) Description 04/19/2024 1:00 PM EST Office Visit [facility] [address] [address] Ursula Rojas MD [address] [place] [address] Health Maintenance Due Date Last Done Comments [...] documented as of this encounter Care Teams Sr. Director Relationship Specialty Start Date End Date Ursula Rojas MD PCP - General Family Medicine 07/20/21 documented as of this encounter
--- OUTSIDE RECORDS SUMMARY | 2024-05-11 00:41 | External Medical Summary | Summary of Care ---
Author Name Unknown Organization [facility] Address [address] [place] [address] Phone [phone] Care Team Providers Care Rv Service Technician Name Role Phone Ursula Rojas MD Primary Care Provid er Reason for Visit * Reason Onset Date Comments Medication Refill 04/23/2024 Encounter Details Date Type Department Care Team (Late st Contact Info) Description 04/23/2024 Telephone [facility] [address] [place] [address] Ursula Rojas MD [address] [place] [address] Medication Refill Allergies No known active allergiesdocumented as of this encounter (statuses as of 04/23/2024) Medications Dexmethylphenidate HCl 10 MG TabletIndications:1 tab [...] TAB BY MOUTH AT 8AM DAILY 07/01/19 22 Active Ondansetron 4 MG Oral Tablet Disintegrating (Zofran)Indications: Nausea Place 1 Tablet on tongue every 8 hours as needed for Nausea. dissolve on tongue. 15 Tablet 03/28/19 25 Active Additional Information Patient not taking.Reported on 04/19/2024 ProAir HFA 108 (90 Base) MCG/ACT Inhalation Aerosol SolutionIndications: Viral URI with cough Inhale 2 Puffs by mouth every 4 hours as needed for Wheezing or Shortness of Breath. 18 g 03/28/19 25 Active Additional Information Patient not taking.Reported on 04/19/2024 Benzonatate 100 MG Oral Capsule (Tessalon Perlglenn)Indications:V iral URI with cough Take 1 Capsule by mouth 3 times a day as needed for Cough. Do not cut, crush, or chew. 50 Capsule 1 03/28/19 25 Active Additional Information Patient not taking.Reported on 04/19/2024 [id number] Ethyl Esters 1 GM Oral Capsule (Lovaza) [...] bedtime. 100 Capsule 1 04/19/19 25 Active Promethazine HCl 12.5 MG Oral Tablet (Phenergan)Indicatio ns:Acute gastroenteropathy due to Norovirus,History of RSV infection Take 1 Tablet by mouth every 8 hours as needed for Nausea. 30 Tablet 1 04/23/19 25 Active Promethazine HCl 12.5 MG Oral Tablet (Phenergan)Indicatio ns:Acute gastroenteropathy due to Norovirus,History of RSV infection Take 1 Tablet by mouth. 04/12/19 25 025 Disconti nued(Ref ill) documented as of this encounter (statuses as of 04/23/2024) Active Problems Problem Noted Date Diagnosed Date [...] as of this encounter (statuses as of 04/23/2024) Resolved Problems Problem Noted Date Diagnosed Date [...] (06/04/2009): Per Obesity Taxonomy Febrile convulsion 12/17/2001 documented as of this encounter (statuses as of 04/23/2024) Immunizations Name Administration Dates Next Due COVID-19 [...] Telephone Encounter - Ursula Rojas MD - 04/23/2024 2:30 PM EST signed * Telephone Encounter - Emily Lawrence PHARM Tech - 04/23/2024 11:58 AM EST Pt only Pt's mom calling requesting the following medication below that is listed as "Historical". The following information was provided: Medication Name: Promethazine HCl Strength: 12.5 MG Oral Tablet (Phenergan) Directions: Take 1 Tablet by mouth 3 times a day. Preferred Quantity: 90 Previous Prescriber: pcp Preferred Pharmacy: [facility] [id number] [place] Please review and approve if appropriate. Thank you, Emily Lawrence [facility] Lecturer In Computer Science II [facility] 04/23/2024,11:59 AM documented in this encounter Plan of Treatment [...] Visit Diagnoses Diagnosis Acute gastroenteropathy due to Norovirus History of RSV infection Personal history of other infectious and parasitic disease documented in this encounter Additional Health Concerns Infection Onset Date Last Indicated Resolved Time RSV 03/28/2024 03/28/2024 documented as of this encounter Care Teams Rv Service Technician Relationship Specialty Start Date End Date Ursula Rojas MD PCP - General Family Medicine 07/20/21 documented as of this encounter
[2024-05-11] MEDS: POTASSIUM CHLORIDE 20 MEQ/15 ML UDC PO STA ×3 (00:52→05:09)
[2024-05-11] MEDS: POTASSIUM CHLORIDE 40 MEQ in SODIUM CHLORIDE 0.9% 1,000 ML IV SCH (01:50)
[2024-05-11] MEDS ORDERED: Nursing to Pharmacy Communication SCH (04:30)
[2024-05-11 04:46] LABS: Hematocrit (blood only) 33.4 % (42.0-52.0); Hemoglobin 12.3 g/dl (14.0-18.0); Mean Corpuscular Hemoglobin 27.1 pg (25.0-34.0); Mean Corpuscular Hgb Conc 36.8 g/dL (32.0-36.0); Mean Corpuscular Volume 73.6 fL (80.0-100.0); Mean Platelet Volume 9.1 fL (9.4-12.4); Platelet Count 202 K/uL (130-400); RDW Coefficient of Variation 11.9 % (11.5-14.5); RDW Standard Deviation 31.2 fL (36.4-46.3); Red Blood Count 4.54 M/uL (4.70-6.10)
[2024-05-11] MEDS: POTASSIUM CHLORIDE / WTR 10 MEQ/100 ML PLCT IV SCH (05:10)
[2024-05-11 05:46] LABS: Albumin Globulin Ratio 1.5 (0.9-2); Albumin Level 3.7 gm/dl (3.4-5.0); BUN Creatinine Ratio 7.2 (10-20); Bilirubin,Total 1.1 mg/dl (0.2-1.0); C Reactive Protein 2.41 mg/dl (0-0.5); Calcium 8.1 mg/dl (8.6-10.3); Creatinine Clr Calc Pharmacy 217.8 ml/min; Globulin 2.4 gm/dl (2.5-4.0); Phosphorus 3.3 mg/dl (2.5-4.9); Potassium 2.5 mmol/L (3.5-5.1); Total Protein 6.1 gm/dl (6.0-8.3)
[2024-05-11 06:01] LABS: Appearance Urine Clear (Clear); Bilirubin Urine Negative (Negative); Blood Urine Negative (Negative); Color Urine Yellow; Glucose Urine UA Negative (Negative); Ketones Urine Negative (Negative); Leukocyte Esterase Urine Negative (Negative); Nitrite Urine Negative (Negative); Protein Urine Negative (Negative); Specific Gravity Urine 1.004 (1.000-1.030); Urobilinogen Urine Negative (Negative)
[2024-05-11 06:45] LABS: Amphetamines+Metham, Urine Neg (Neg); Barbiturates, Urine Neg (Neg); Benzodiazepine, Urine Neg (Neg); Cocaine, Urine Neg (Neg); Fentanyl, Urine Neg (Neg); MDMA (Ecstacy), Urine Neg (Neg); Marijuana, Urine Pos (Neg); Methadone, Urine Neg (Neg); Opiate, Urine Neg (Neg); Phencyclidine, Urine Neg (Neg)
--- NOTE | 2024-05-11 06:50 | Electrocardiogram Report ---
Test Reason : Blood Pressure : */* mmHG Vent. Rate : 101 BPM Atrial Rate : 101 BPM P-R Int : 160 ms QRS Dur : 108 ms QT Int : 408 ms P-R-T Axes : 12 35 -23 degrees QTcB Int : 529 ms Sinus tachycardia Prolonged QT Abnormal ECG When compared with ECG of 11-Apr-2024 06:17, QT has lengthened T wave inversion now evident in Inferior leads Confirmed by Ronak Bishop ([id number]) on 05/11/2024 6:50:15 AM Referred By: REFERRED SELF Confirmed By: Ronak Bishop
--- NOTE | 2024-05-11 08:09 | Nephrology Consultation ---
Date of Consultation May 11, 2024 Assessment & Plan (1) Hypokalemia: critical hypokalemia presenting in setting of intractable N/V. K 2.2 on presentation, 2.5 this am. on RA, hypotensive; no h/o cardiac disease. severe total body K depletion. >changed K-rich NS to K-rich LR w/ 40 mEq/L KCl at 250 mL hourly >ordered BMP q6h based on 10 AM labs gave another 60mEQ K elixir (has had several this admission already); cont K rich IVF waiting on 1600 bmp results -continue K rich IV fluids; he's tolerating aggressive dosing >replete po K as needed For overnight, suggest -q4HBMP run stat -RN to [employer] airport sales agent/covering physician if K >3.5 -continue aggressive rate of LR w/ 40 mEq/L K -replete K po where able beyond LR rate -ensure has mag ordered for am and phos along w BMP Care d/w Dr Jones via TText at multiple times through the day via [employer]Text; overnight suggestions specifically reviewed; defer to primary service to enter orders, f/u w/ RN, airport sales agent etc. (2) Hyponatremia: presenting sodium 127; up to 131 today; in pt w/ intermittent hyponatremia over past month low 130s; rate of correction of sNa clinically less relevant here than improving potassium. uOsms on presentation c/w low solute intake >> no indication for fluid limit currently; monitor Na w/ frequent BMP; no indication for fluid limit when he's on clear liquid diet History of Present Illness Reason for Consultation: hypokalemia, hyponatremia Requesting Physician: Dr Rivera Attending Physician: Jeffrey Jones MD History of Present Illness 23 y/o M whom I'm asked to see for hyponatremia and hypokalemia was admitted late yesterday PM after presenting with these electrolyte disorders in the setting of intractable nausea/vomiting. PMH includes schizophrenia, autism spectrum disorder, ADD, Class 3 obesity, fatty liver. Recently admitted here 04/07-04/11 w/ RSV 04/04 and norovirus 04/07. Presenting sodium was 127 yesterday 1500 w/ K 2.3; up to 131 0400 today w/ K 2.5. uOsm 118 and Maylin <10. Tox screen positive for THC. He had 2L NS in ED; he's had 70 mEq IV K riders; 100 mEq po K; has also had NS w/ 40 mEq IV K. He had some N earlier but denies N or abd pain now and hungry. no sob, no edema; had one loose bm overnight he tells me none now. no abd or musculoskeletal pain. no f/c. Allergies Allergy/AdvReac Type Severity Reaction Status Date / Time latex Allergy Severe Hives/Sweat Unverified 04/07/24 11:48 ing/Swellin g/SOB pollen extracts Allergy Hives Unverified 04/07/24 11:48 Home Medications Medication Instructions Recorded Confirmed Type dexmethylphenidate 10 mg tablet 10 mg PO TID 02/12/18 05/10/24 History guanfacine 4 mg tablet,extended 4 mg PO QAM 11/21/20 05/10/24 History release 24 hr sertraline 100 mg tablet 200 mg PO QAM 11/21/20 05/10/24 History buspirone 15 mg tablet 22.5 mg PO BID 04/04/24 05/10/24 History lurasidone 80 mg tablet 80 mg PO QAM 04/04/24 05/10/24 History potassium chloride 20 mEq 20 meq PO DAILY #7 tabs 04/04/24 05/10/24 Rx tablet,extended release dicyclomine 10 mg capsule 10 mg PO TID #15 caps 04/15/24 05/10/24 Rx omega-3 acid ethyl esters 1 gram 1 cap PO BID 05/10/24 05/10/24 History capsule promethazine 25 mg rectal 1 mg NE Q6H PRN Nausea 05/10/24 05/10/24 History suppository Patient History Medical History Schizophrenia Major depressive disorder, recurrent, severe with psychotic features Autism spectrum disorder ADHD Surgical History No significant past surgical history Family History Other No pertinent family history Social History Smoking Status: Light tobacco smoker Tobacco Type: E-cigarettes / Vaping Do You Dip or Chew Tobacco: No; Hx Alcohol Use: Yes Alcohol type: hard liquor Hx Substance Use: Yes Prescribed Medications: Marijuana Last Used Substance Other:: 1 month ago Preferred Language: Monegasque Communication Ability: Effective Animal Care Specialist Required: No Beliefs That Will Affect Care: None Current Living Situation: Family Feels Safe at Home: Yes Gender Identity: Male Assistive Devices: None Review of Systems 2 Review of Systems: All systems reviewed & are unremarkable except as noted in HPI & below Physical Exam 2 Constitutional: well developed and well nourished Eyes: EOM intact bilaterally ENMT: Ears: no external ear abnormality Nose: no external nose abnormality Mouth: + dry oral mucous membranes Neck: no nuchal rigidity Respiratory: normal respiratory effort Auscultation: + diminished lung sounds Gastrointestinal (Abdomen): Inspection/Auscultation: normal bowel sounds P ercussion/Palpation: abdomen soft; abdomen nontender Musculoskeletal: Extremities: strength 5/5 throughout Skin: no rashes, warm and dry Neurologic: wylie, fluent speech, no tremor; slight psychomotor/processing delay Psychiatric: Orientation: alert and oriented x 3 Results & Data Vital Signs (Past 12 Hours) Vital Signs Temp Pulse Pulse Resp BP BP Pulse Ox 05/11/24 07:00 36.5 C 86 20 96/73 L 97 05/11/24 02:02 36.8 C 94 H 18 107/68 97 05/11/24 01:08 103 H 05/10/24 23:14 36.7 C 93 H 18 100/66 98 05/10/24 22:22 05/10/24 22:01 16 96 O2 Del Method 05/11/24 07:00 Room Air 05/11/24 02:02 Room Air 05/11/24 01:08 05/10/24 23:14 Room Air 05/10/24 22:22 Room Air 05/10/24 22:01 Room Air Laboratory Results 05/11/24 04:11 05/11/24 04:11
--- NOTE | 2024-05-11 08:33 | Hospitalist Progress Note ---
Date of Service May 11, 2024 Assessment & Plan (1) Intractable nausea and vomiting: (2) Hyponatremia: (3) Hypokalemia: (4) Schizophrenia: (5) Major depressive disorder, recurrent, severe with psychotic features: (6) Autism spectrum disorder: (7) ADHD: Plan This is a 23-year-old male with PMH of spectrum disorder, recent RSV and norovirus and other medical problems listed below who presents with intractable vomiting and found to have hypokalemia and hyponatremia. Intractable nausea and vomiting Ongoing intermittent N/V since admission at the end of March ( RSV + 04/04 and norovirus + 04/07) Transaminitis attributed to norovirus at that time - CT abd/pelvis with fatty liver, abd ultrasound WNL Continue Bentyl, antiemetics, fluids and lyte repletion as below CMP with mildly elevated ALT 76, tbili 1.5 Utox pending (posit. for marijuana , denied use for >1mo to admitting team) GI consult given persistent N/V - persistent nausea and vomiting since he was diagnosed with norovirus. He denies pain with it. He is on no new meds to c ause this problem. Occasionally when people get an acute gastroenteritis their symptoms will linger with "postinfectious gastroparesis". Usually this will subside on its own but occasionally it needs help. I will add in metoclopramide to his regimen--if no interactions with psych meds--and see how he responds before we jump in with invasive procedures. Hypokalemia K 2.3 in setting of poor PO intake replaced and rechecked, still low this AM and replaced again Nephrology consulted and discussed with - cont. replacement of K and cont. close monitoring Hyponatremia Na 127 in setting of poor PO intake for weeks Serum osm 258, urine osm and lytes Given 2 L NSS in ED current Na 136 nephrology consulted and following electrolytes Prolonged qtc In the past, EKG in ED w/ prolonged QTc 529 Has not been taking home psych meds per psychiatrist recommendation until vomiting subsides and he can tolerate solids - cont. to hold psych meds DVT Ppx: teds, early ambulation Code status: FULL PCP: Dr. Rojas Dispo: PCU Admission and Anticipated Discharge Date Admission Date: May 10, 2024 Subjective Pt seen in follow up of n/v/d/, hypokalemia hx of Norovirus in March Currently lying in bed in [facility], says when he tries to eat anything he has emesis denies fever, chills, chest pain, shortness of breath. denies abd. pain No blood in stool, and no blood in emesis Potassium persistently low, replaced and discussed w/ nephrology Review of Systems Review of Systems: All systems reviewed & are unremarkable except as noted in Subjective Physical Exam Physical Exam: General: morbidly obese young M in [facility] Respiratory: CTAB Cardiovascular: RRR, no murmur, no edema Chest: normal inspection of chest Abdomen: Soft, nontender, +obese Musculoskeletal: moves extremities Skin: no rashes, warm and dry normal turgor Neurologic: awake, alert, no face palsy, speech fluent, answers appropriately, moves all extremities Results & Data Results & Data Vital Signs (Past 12 Hours) Vital Signs Temp Pulse Pulse Resp BP BP Pulse Ox 05/11/24 07:00 36.5 C 86 20 96/73 L 97 05/11/24 02:02 36.8 C 94 H 18 107/68 97 05/11/24 01:08 103 H 05/10/24 23:14 36.7 C 93 H 18 100/66 98 05/10/24 22:22 05/10/24 22:01 16 96 O2 Del Method 05/11/24 07:00 Room Air 05/11/24 02:02 Room Air 05/11/24 01:08 05/10/24 23:14 Room Air 05/10/24 22:22 Room Air 05/10/24 22:01 Room Air Laboratory Results 05/11/24 05/11/24 05/10/24 Range/Units 05:00 04:11 22:54 WBC 5.40 (4.8-10.8) K/ul RBC 4.54 L (4.70-6.10) M/uL Hgb 12.3 L (14.0-18.0) g/dl Hct 33.4 L (42.0-52.0) % MCV 73.6 L (80.0-100.0) fL MCH 27.1 (25.0-34.0) pg MCHC 36.8 H (32.0-36.0) g/dL RDW Std Deviation 31.2 L (36.4-46.3) fL RDW Coeff of [place] 11.9 (11.5-14.5) % Plt Count 202 (130-400) K/uL MPV 9.1 L (9.4-12.4) fL Immature Gran % (Auto) % Neut % (Auto) % Lymph % (Auto) % Parmer % (Auto) % Eos % (Auto) % Baso % (Auto) % Neut # (Auto) (1.40-6.50) K/uL Lymph # (Auto) (1.20-3.40) K/uL Parmer # (Auto) (0.11-0.59) K/uL Eos # (Auto) (0.00-0.50) K/uL Baso # (Auto) (0.00-0.20) K/uL Immature Gran # (Auto) (0.01-0.20) K/uL ESR 13 (0-15) mm/hr Sodium 131 L 131 L (136-145) mmol/L Potassium 2.5 L* 2.2 L* (3.5-5.1) mmol/L Chloride 92 L 89 L (98-107) mmol/L Carbon Dioxide 34 H 35 H (21-32) mmol/L Anion Gap 5 7 (3-11) BUN 5 L 6 (6-23) mg/dl Creatinine 0.69 0.73 (0.6-1.4) mg/dl Est Cr Clr Drug Dosing 217.8 206.0 eGFR 132.53 130.29 BUN/Creatinine Ratio 7.2 L 8.2 L (10-20) Glucose 77 105 H (70-99(Fasting)) mg/dl Osmolality (280-300) mOsm/kg Calcium 8.1 L 8.8 (8.6-10.3) mg/dl Phosphorus 3.3 (2.5-4.9) mg/dl Magnesium 2.0 (1.7-2.4) mg/dl Total Bilirubin 1.1 H (0.2-1.0) mg/dl AST 26 (13-39) U/L ALT 59 H (7-52) U/L Alkaline Phosphatase 66 (34-104) U/L C-Reactive Protein 2.41 H (0-0.5) mg/dl Total Protein 6.1 (6.0-8.3) gm/dl Albumin 3.7 (3.4-5.0) gm/dl Globulin 2.4 L (2.5-4.0) gm/dl Albumin/Globulin Ratio 1.5 (0.9-2) Lipase (11-82) U/L TSH (0.300-4.500) uIu/ml Urine Color Yellow Urine Appearance Clear (Clear) Urine pH 7.0 (4.5-7.5) Ur Specific Inman 1.004 (1.000-1.030) Urine Protein Negative (Negative) Urine Glucose (UA) Negative (Negative) Urine Ketones Negative (Negative) Urine Blood Negative (Negative) Urine Nitrite Negative (Negative) Urine Bilirubin Negative (Negative) Urine Urobilinogen Negative (Negative) Ur Leukocyte Esterase Negative (Negative) Urine Osmolality 118 L (500-800) mOsm/kg Ur Random Sodium < 10 mmol/L Urine Opiates Screen Neg (Neg) Ur Methadone, Qual Neg (Neg) Urine Fentanyl Screen Neg (Neg) Urine Barbiturates Neg (Neg) Ur Phencyclidine (PCP) Neg (Neg) U Amphetamin/Meth Scrn Neg (Neg) MDMA (Ecstasy) Screen Neg (Neg) U Benzodiazepines Scrn Neg (Neg) Ur Cocaine Metabolite Neg (Neg) U Marijuana (THC) Screen Pos H (Neg) U Marijuana THC Carboxy Pending Drug Screen Comment Pending 05/10/24 Range/Units 15:05 WBC 6.19 (4.8-10.8) K/ul RBC 5.37 (4.70-6.10) M/uL Hgb 14.6 (14.0-18.0) g/dl Hct 38.9 L (42.0-52.0) % MCV 72.4 L (80.0-100.0) fL MCH 27.2 (25.0-34.0) pg MCHC 37.5 H (32.0-36.0) g/dL RDW Std Deviation 30.3 L (36.4-46.3) fL RDW Coeff of [place] 11.9 (11.5-14.5) % Plt Count 273 (130-400) K/uL MPV 9.2 L (9.4-12.4) fL Immature Gran % (Auto) 0.5 % Neut % (Auto) 67.2 % Lymph % (Auto) 20.0 % Parmer % (Auto) 11.5 % Eos % (Auto) 0.5 % Baso % (Auto) 0.3 % Neut # (Auto) 4.16 (1.40-6.50) K/uL Lymph # (Auto) 1.24 (1.20-3.40) K/uL Parmer # (Auto) 0.71 H (0.11-0.59) K/uL Eos # (Auto) 0.03 (0.00-0.50) K/uL Baso # (Auto) 0.02 (0.00-0.20) K/uL Immature Gran # (Auto) 0.03 (0.01-0.20) K/uL ESR (0-15) mm/hr Sodium 127 L (136-145) mmol/L Potassium 2.3 L* (3.5-5.1) mmol/L Chloride 84 L (98-107) mmol/L Carbon Dioxide 32 (21-32) mmol/L Anion Gap 11 (3-11) BUN 7 (6-23) mg/dl Creatinine 0.65 (0.6-1.4) mg/dl Est Cr Clr Drug Dosing Not Reportable eGFR 134.94 BUN/Creatinine Ratio 10.8 (10-20) Glucose 133 H (70-99(Fasting)) mg/dl Osmolality 258 L (280-300) mOsm/kg Calcium 9.3 (8.6-10.3) mg/dl Phosphorus (2.5-4.9) mg/dl Magnesium (1.7-2.4) mg/dl Total Bilirubin 1.5 H (0.2-1.0) mg/dl AST 33 (13-39) U/L ALT 76 H (7-52) U/L Alkaline Phosphatase 82 (34-104) U/L C-Reactive Protein (0-0.5) mg/dl Total Protein 7.3 (6.0-8.3) gm/dl Albumin 4.4 (3.4-5.0) gm/dl Globulin 2.9 (2.5-4.0) gm/dl Albumin/Globulin Ratio 1.5 (0.9-2) Lipase 54 (11-82) U/L TSH 0.896 (0.300-4.500) uIu/ml Urine Color Urine Appearance (Clear) Urine pH (4.5-7.5) Ur Specific Inman (1.000-1.030) Urine Protein (Negative) Urine Glucose (UA) (Negative) Urine Ketones (Negative) Urine Blood (Negative) Urine Nitrite (Negative) Urine Bilirubin (Negative) Urine Urobilinogen (Negative) Ur Leukocyte Esterase (Negative) Urine Osmolality (500-800) mOsm/kg Ur Random Sodium mmol/L Urine Opiates Screen (Neg) Ur Methadone, Qual (Neg) Urine Fentanyl Screen (Neg) Urine Barbiturates (Neg) Ur Phencyclidine (PCP) (Neg) U Amphetamin/Meth Scrn (Neg) MDMA (Ecstasy) Screen (Neg) U Benzodiazepines Scrn (Neg) Ur Cocaine Metabolite (Neg) U Marijuana (THC) Screen (Neg) U Marijuana THC Carboxy Drug Screen Comment Medications Administered Current Inpatient Medications Acetaminophen (Acetaminophen 325 Mg Tab) 650 mg PO Q4H PRN PRN Reason: Pain or Fever Stop: 06/09/24 19:15 Dicyclomine HCl (Dicyclomine Hcl 10 Mg Cap) 10 mg PO TID [facility] Stop: 06/09/24 20:59 Last Admin: 05/10/24 20:04 Dose: Not Given Thiamine HCl 200 mg/ Sodium (Chloride) 52 mls @ 210 mls/hr IV Q8H SOU[facility]E Stop: 06/09/24 20:59 Last Infusion: 05/11/24 05:58 Dose: Infused Potassium Chloride 40 meq/ (Sodium Chloride) 1,020 mls @ 80 mls/hr IV .[id number] [facility] Stop: 06/10/24 01:29 Last Admin: 05/11/24 01:50 Dose: 80 mls/hr Potassium Chloride (K Elver / Wtr) 10 meq in 100 mls @ 100 mls/hr IV Q1H [facility] Stop: 05/11/24 08:59 Last Admin: 05/11/24 08:06 Dose: 75 mls/hr Potassium Chloride 40 meq/ (Lactated Ringer's) 1,020 mls @ 250 mls/hr IV .[id number] [facility] Stop: 05/11/24 20:00 Promethazine HCl (Promethazine Hcl 25 Mg Supp) 25 mg MT Q6H PRN PRN Reason: Nausea Stop: 06/09/24 19:15 (4) Schizophrenia Schizophrenia type: other Qualified Code(s): F20.89 - Other schizophrenia (7) ADHD Attention deficit-hyperactivity disorder type: unspecified Qualified Code(s): F90.9 - Attention-deficit hyperactivity disorder, unspecified type
--- NOTE | 2024-05-11 09:58 | Gastrointestinal Consultation ---
Date of Consultation May 11, 2024 Assessment & Plan (1) Intractable nausea and vomiting: Pleasant man with persistent nausea and vomiting since he was diagnosed with norovirus. He denies pain with it. He is on no new meds to cause this problem. Occasionally when people get an acute gastroenteritis their symptoms will linger with "postinfectious gastroparesis". Usually this will subside on its own but occasionally it needs help. I will add in metoclopramide to his regimen--if no interactions with psych meds--and see how he responds before we jump in with invasive procedures. History of Present Illness Reason for Consultation: persistent nausea and vomiting Attending Physician: Jeffrey Jones MD History of Present Illness 23 year old man on the spectrum for autism as well as having issues with schizophrenia was admitted with electrolyte abnormalities related to persistent nausea and vomiting. He was in the hospital in March with GI issues related to norovirus and RSV. Prior to this admission he doesn't recall having much issues with his stomach. He does also complain of diarrhea but that is not a daily occurrence. When he has diarrhea he says it is usually one or two large loose stools. He vomits daily though and will wake up to vomit. He thinks he has lost weight but he is unsure. Allergies Allergy/AdvReac Type Severity Reaction Status Date / Time latex Allergy Severe Hives/Sweat Unverified 04/07/24 11:48 ing/Swellin g/SOB pollen extracts Allergy Hives Unverified 04/07/24 11:48 Home Medications Medication Instructions Recorded Confirmed Type dexmethylphenidate 10 mg tablet 10 mg PO TID 02/12/18 05/10/24 History guanfacine 4 mg tablet,extended 4 mg PO QAM 11/21/20 05/10/24 History release 24 hr sertraline 100 mg tablet 200 mg PO QAM 11/21/20 05/10/24 History buspirone 15 mg tablet 22.5 mg PO BID 04/04/24 05/10/24 History lurasidone 80 mg tablet 80 mg PO QAM 04/04/24 05/10/24 History potassium chloride 20 mEq 20 meq PO DAILY #7 tabs 04/04/24 05/10/24 Rx tablet,extended release dicyclomine 10 mg capsule 10 mg PO TID #15 caps 04/15/24 05/10/24 Rx omega-3 acid ethyl esters 1 gram 1 cap PO BID 05/10/24 05/10/24 History capsule promethazine 25 mg rectal 1 mg NV Q6H PRN Nausea 05/10/24 05/10/24 History suppository Patient History Medical History Schizophrenia Major depressive disorder, recurrent, severe with psychotic features Autism spectrum disorder ADHD Surgical History No significant past surgical history Family History Other No pertinent family history Social History Smoking Status: Light tobacco smoker Tobacco Type: E-cigarettes / Vaping Do You Dip or Chew Tobacco: No; Hx Alcohol Use: Yes Alcohol type: hard liquor Hx Substance Use: Yes Prescribed Medications: Marijuana Last Used Substance Other:: 1 month ago Preferred Language: Romanian Communication Ability: Effective 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 Required: No Beliefs That Will Affect Care: None Current Living Situation: Family Feels Safe at Home: Yes Gender Identity: Male Assistive Devices: None Review of Systems Review of Systems: All systems reviewed & are unremarkable except as noted in HPI & below Physical Exam Constitutional: WD/WN, vitals as above + morbidly obese Neck: trachea midline, no thyromegaly Respiratory: normal respiratory effort, lungs clear to auscultation Cardiovascular: RRR, no murmur, no edema Gastrointestinal (Abdomen): normal bowel sounds, soft, nontender, no hep atosplenomegaly Results & Data Vital Signs (Past 12 Hours) Vital Signs Temp Pulse Pulse Resp BP BP Pulse Ox 05/11/24 07:00 36.5 C 86 20 96/73 L 97 05/11/24 02:02 36.8 C 94 H 18 107/68 97 05/11/24 01:08 103 H 05/10/24 23:14 36.7 C 93 H 18 100/66 98 05/10/24 22:22 05/10/24 22:01 16 96 O2 Del Method 05/11/24 07:00 Room Air 05/11/24 02:02 Room Air 05/11/24 01:08 05/10/24 23:14 Room Air 05/10/24 22:22 Room Air 05/10/24 22:01 Room Air Laboratory Results 05/11/24 05/11/24 05/10/24 Range/Units 05:00 04:11 22:54 WBC 5.40 (4.8-10.8) K/ul RBC 4.54 L (4.70-6.10) M/uL Hgb 12.3 L (14.0-18.0) g/dl Hct 33.4 L (42.0-52.0) % MCV 73.6 L (80.0-100.0) fL MCH 27.1 (25.0-34.0) pg MCHC 36.8 H (32.0-36.0) g/dL RDW Std Deviation 31.2 L (36.4-46.3) fL RDW Coeff of [place] 11.9 (11.5-14.5) % Plt Count 202 (130-400) K/uL MPV 9.1 L (9.4-12.4) fL Immature Gran % (Auto) % Neut % (Auto) % Lymph % (Auto) % Mercer % (Auto) % Eos % (Auto) % Baso % (Auto) % Neut # (Auto) (1.40-6.50) K/uL Lymph # (Auto) (1.20-3.40) K/uL Mercer # (Auto) (0.11-0.59) K/uL Eos # (Auto) (0.00-0.50) K/uL Baso # (Auto) (0.00-0.20) K/uL Immature Gran # (Auto) (0.01-0.20) K/uL ESR 13 (0-15) mm/hr Sodium 131 L 131 L (136-145) mmol/L Potassium 2.5 L* 2.2 L* (3.5-5.1) mmol/L Chloride 92 L 89 L (98-107) mmol/L Carbon Dioxide 34 H 35 H (21-32) mmol/L Anion Gap 5 7 (3-11) BUN 5 L 6 (6-23) mg/dl Creatinine 0.69 0.73 (0.6-1.4) mg/dl Est Cr Clr Drug Dosing 217.8 206.0 eGFR 132.53 130.29 BUN/Creatinine Ratio 7.2 L 8.2 L (10-20) Glucose 77 105 H (70-99(Fasting)) mg/dl Osmolality (280-300) mOsm/kg Calcium 8.1 L 8.8 (8.6-10.3) mg/dl Phosphorus 3.3 (2.5-4.9) mg/dl Magnesium 2.0 (1.7-2.4) mg/dl Total Bilirubin 1.1 H (0.2-1.0) mg/dl AST 26 (13-39) U/L ALT 59 H (7-52) U/L Alkaline Phosphatase 66 (34-104) U/L C-Reactive Protein 2.41 H (0-0.5) mg/dl Total Protein 6.1 (6.0-8.3) gm/dl Albumin 3.7 (3.4-5.0) gm/dl Globulin 2.4 L (2.5-4.0) gm/dl Albumin/Globulin Ratio 1.5 (0.9-2) Lipase (11-82) U/L TSH (0.300-4.500) uIu/ml Urine Color Yellow Urine Appearance Clear (Clear) Urine pH 7.0 (4.5-7.5) Ur Specific [place] 1.004 (1.000-1.030) Urine Protein Negative (Negative) Urine Glucose (UA) Negative (Negative) Urine Ketones Negative (Negative) Urine Blood Negative (Negative) Urine Nitrite Negative (Negative) Urine Bilirubin Negative (Negative) Urine Urobilinogen Negative (Negative) Ur Leukocyte Esterase Negative (Negative) Urine Osmolality 118 L (500-800) mOsm/kg Ur Random Sodium < 10 mmol/L Urine Opiates Screen Neg (Neg) Ur Methadone, Qual Neg (Neg) Urine Fentanyl Screen Neg (Neg) Urine Barbiturates Neg (Neg) Ur Phencyclidine (PCP) Neg (Neg) U Amphetamin/Meth Scrn Neg (Neg) MDMA (Ecstasy) Screen Neg (Neg) U Benzodiazepines Scrn Neg (Neg) Ur Cocaine Metabolite Neg (Neg) U Marijuana (THC) Screen Pos H (Neg) U Marijuana THC Carboxy Pending Drug Screen Comment Pending 05/10/24 Range/Units 15:05 WBC 6.19 (4.8-10.8) K/ul RBC 5.37 (4.70-6.10) M/uL Hgb 14.6 (14.0-18.0) g/dl Hct 38.9 L (42.0-52.0) % MCV 72.4 L (80.0-100.0) fL MCH 27.2 (25.0-34.0) pg MCHC 37.5 H (32.0-36.0) g/dL RDW Std Deviation 30.3 L (36.4-46.3) fL RDW Coeff of [place] 11.9 (11.5-14.5) % Plt Count 273 (130-400) K/uL MPV 9.2 L (9.4-12.4) fL Immature Gran % (Auto) 0.5 % Neut % (Auto) 67.2 % Lymph % (Auto) 20.0 % Mercer % (Auto) 11.5 % Eos % (Auto) 0.5 % Baso % (Auto) 0.3 % Neut # (Auto) 4.16 (1.40-6.50) K/uL Lymph # (Auto) 1.24 (1.20-3.40) K/uL Mercer # (Auto) 0.71 H (0.11-0.59) K/uL Eos # (Auto) 0.03 (0.00-0.50) K/uL Baso # (Auto) 0.02 (0.00-0.20) K/uL Immature Gran # (Auto) 0.03 (0.01-0.20) K/uL ESR (0-15) mm/hr Sodium 127 L (136-145) mmol/L Potassium 2.3 L* (3.5-5.1) mmol/L Chloride 84 L (98-107) mmol/L Carbon Dioxide 32 (21-32) mmol/L Anion Gap 11 (3-11) BUN 7 (6-23) mg/dl Creatinine 0.65 (0.6-1.4) mg/dl Est Cr Clr Drug Dosing Not Reportable eGFR 134.94 BUN/Creatinine Ratio 10.8 (10-20) Glucose 133 H (70-99(Fasting)) mg/dl Osmolality 258 L (280-300) mOsm/kg Calcium 9.3 (8.6-10.3) mg/dl Phosphorus (2.5-4.9) mg/dl Magnesium (1.7-2.4) mg/dl Total Bilirubin 1.5 H (0.2-1.0) mg/dl AST 33 (13-39) U/L ALT 76 H (7-52) U/L Alkaline Phosphatase 82 (34-104) U/L C-Reactive Protein (0-0.5) mg/dl Total Protein 7.3 (6.0-8.3) gm/dl Albumin 4.4 (3.4-5.0) gm/dl Globulin 2.9 (2.5-4.0) gm/dl Albumin/Globulin Ratio 1.5 (0.9-2) Lipase 54 (11-82) U/L TSH 0.896 (0.300-4.500) uIu/ml Urine Color Urine Appearance (Clear) Urine pH (4.5-7.5) Ur Specific [place] (1.000-1.030) Urine Protein (Negative) Urine Glucose (UA) (Negative) Urine Ketones (Negative) Urine Blood (Negative) Urine Nitrite (Negative) Urine Bilirubin (Negative) Urine Urobilinogen (Negative) Ur Leukocyte Esterase (Negative) Urine Osmolality (500-800) mOsm/kg Ur Random Sodium mmol/L Urine Opiates Screen (Neg) Ur Methadone, Qual (Neg) Urine Fentanyl Screen (Neg) Urine Barbiturates (Neg) Ur Phencyclidine (PCP) (Neg) U Amphetamin/Meth Scrn (Neg) MDMA (Ecstasy) Screen (Neg) U Benzodiazepines Scrn (Neg) Ur Cocaine Metabolite (Neg) U Marijuana (THC) Screen (Neg) U Marijuana THC Carboxy Drug Screen Comment
[2024-05-11 10:42] LABS: BUN Creatinine Ratio 5.6 (10-20); Calcium 8.8 mg/dl (8.6-10.3); Creatinine Clr Calc Pharmacy 208.7 ml/min; Potassium 2.4 mmol/L (3.5-5.1)
[2024-05-11] MEDS: POTASSIUM CHLORIDE 40 MEQ in LACTATED RINGER'S 1,000 ML IV SCH (10:44)
[2024-05-11] MEDS: POTASSIUM CHLORIDE 20 MEQ/15 ML UDC PO ONE (11:41)
[2024-05-11] MEDS: METOCLOPRAMIDE HCL 10 MG TABLET PO SCH (11:41)
[2024-05-11] MEDS: MAGNESIUM SULFATE / D5W 1 GM/100 ML BAG IV ONE (14:42)
[2024-05-11] MEDS: MULTIVITAMIN CHEWABLE TAB PO SCH (14:42)
[2024-05-11 16:32] LABS: BUN Creatinine Ratio 5.7 (10-20); Calcium 8.4 mg/dl (8.6-10.3); Creatinine Clr Calc Pharmacy 214.6 ml/min; Potassium 2.7 mmol/L (3.5-5.1)
[2024-05-11] MEDS: POTASSIUM CHLORIDE CRTAB 20 MEQ TABCR PO STA (17:24)
[2024-05-11 20:32] LABS: BUN Creatinine Ratio 4.3 (10-20); Creatinine Clr Calc Pharmacy 217.8 ml/min; Potassium 3.6 mmol/L (3.5-5.1)
[2024-05-12 01:43] LABS: BUN Creatinine Ratio 4.8 (10-20); Calcium 8.4 mg/dl (8.6-10.3); Creatinine Clr Calc Pharmacy 242.3 ml/min; Potassium 3.7 mmol/L (3.5-5.1)
[2024-05-12 07:21] LABS: Albumin Globulin Ratio 1.5 (0.9-2); Albumin Level 3.4 gm/dl (3.4-5.0); Bilirubin,Total 0.7 mg/dl (0.2-1.0); Calcium 8.3 mg/dl (8.6-10.3); Creatinine Clr Calc Pharmacy 251.6 ml/min; Globulin 2.2 gm/dl (2.5-4.0); Phosphorus 2.3 mg/dl (2.5-4.9); Potassium 3.4 mmol/L (3.5-5.1); Total Protein 5.6 gm/dl (6.0-8.3)
[2024-05-12 07:48] LABS: Hematocrit (blood only) 32.4 % (42.0-52.0); Hemoglobin 11.3 g/dl (14.0-18.0); Mean Corpuscular Hemoglobin 27.2 pg (25.0-34.0); Mean Corpuscular Hgb Conc 34.9 g/dL (32.0-36.0); Mean Corpuscular Volume 78.1 fL (80.0-100.0); Mean Platelet Volume 9.4 fL (9.4-12.4); Platelet Count 198 K/uL (130-400); RDW Coefficient of Variation 12.3 % (11.5-14.5); Red Blood Count 4.15 M/uL (4.70-6.10); White Blood Count 5.63 K/ul (4.8-10.8)
--- NOTE | 2024-05-12 07:50 | Hospitalist Progress Note ---
Date of Service May 12, 2024 Assessment & Plan (1) Intractable nausea and vomiting: (2) Hyponatremia: (3) Hypokalemia: (4) Schizophrenia: (5) Major depressive disorder, recurrent, severe with psychotic features: (6) Autism spectrum disorder: (7) ADHD: Plan Plan This is a 23-year-old male with PMH of spectrum disorder, recent RSV and norovirus and other medical problems listed below who presents with intractable vomiting and found to have hypokalemia and hyponatremia. Intractable nausea and vomiting Ongoing intermittent N/V since admission at the end of March ( RSV + 04/04 and norovirus + 04/07) Transaminitis attributed to norovirus at that time - CT abd/pelvis with fatty liver, abd ultrasound WNL Continue Bentyl, antiemetics, fluids and lyte repletion as below CMP with mildly elevated ALT 76, tbili 1.5 Utox pending (posit. for marijuana , denied use for >1mo to admitting team) GI consult given persistent N/V - persistent nausea and vomiting since he was diagnosed with norovirus. He denies pain with it. He is on no new meds to cause this problem. Occasionally when people get an acute gastroenteritis their symptoms will linger with "postinfectious gastroparesis". Usually this will subside on its own but occasionally it needs help. I will add in metoclopramide to his regimen--if no interactions with psych meds--and see how he responds before we jump in with invasive procedures. 05/12/24 Pt feels better today and tolerating some po intake, no emesis today, but already had 3 loose stools Hypokalemia K 2.3 in setting of poor PO intake replaced and re-checked, several times yesterday Nephrology consulted and discussed with - cont. replacement of K and cont. close monitoring will recheck BMP PM and AM Hyponatremia Na 127 in setting of poor PO intake for weeks Serum osm 258, urine osm and lytes Given 2 L NSS in ED current Na 138 Nephrology consulted and following electrolytes Prolonged qtc In the past, EKG in ED w/ prolonged QTc 529 Has not been taking home psych meds per psychiatrist recommendation until vomiting subsides and he can tolerate solids - cont. to hold psych meds DVT Ppx: teds, early ambulation Code status: FULL PCP: Dr. Rojas Dispo: PCU Admission and Anticipated Discharge Date Admission Date: May 10, 2024 Subjective Pt seen in follow up of n/v/d/, hypokalemia hx of Norovirus in March Currently lying in bed in NAD, said when he tried to eat anything he had emesis Today he says he feels better, able to tolerate some po intake, no emesis here, however reports 3 loose stools today already denies fever, chills, chest pain, shortness of breath. denies abd. pain No blood in stool, and no blood in emesis Potassium persistently low yesterday, replaced and discussed w/ nephrology Today K improved but still replacing, will recheck BMP this PM and tmrw AM Review of Systems Review of Systems: All systems reviewed & are unremarkable except as noted in Subjective Physical Exam Physical Exam: General: morbidly obese young M in NAD Respiratory: CTAB Cardiovascular: RRR, no murmur, no edema Chest: normal inspection of chest Abdomen: Soft, nontender, +obese Musculoskeletal: moves extremities Skin: no rashes, warm and dry normal turgor Neurologic: awake, alert, no face palsy, speech fluent, answers appropriately, moves all extremities Results & Data Results & Data Vital Signs (Past 12 Hours) Vital Signs Temp Pulse Pulse Resp BP BP Pulse Ox 05/12/24 07:00 36.6 C 78 18 102/62 100 05/12/24 02:37 36.5 C 76 18 147/67 H 99 05/12/24 00:31 82 05/11/24 23:01 36.8 C 79 18 107/77 95 O2 Del Method 05/12/24 07:00 Room Air 05/12/24 02:37 Room Air 05/12/24 00:31 05/11/24 23:01 Room Air Laboratory Results 05/12/24 05/12/24 05/11/24 Range/Units 05:31 00:54 19:45 WBC Pending RBC Pending Hgb Pending Hct Pending MCV Pending MCH Pending MCHC Pending Plt Count Pending Sodium 138 141 140 (136-145) mmol/L Potassium 3.4 L 3.7 3.6 D (3.5-5.1) mmol/L Chloride 103 107 101 (98-107) mmol/L Carbon Dioxide 31 32 35 H (21-32) mmol/L Anion Gap 4 2 L 4 (3-11) BUN 3 L 3 L 3 L (6-23) mg/dl Creatinine 0.60 0.62 0.69 (0.6-1.4) mg/dl Est Cr Clr Drug Dosing 251.6 242.3 217.8 ml/min eGFR 138.24 136.88 132.53 BUN/Creatinine Ratio 5.0 L 4.8 L 4.3 L (10-20) Glucose 77 79 75 (70-99(Fasting)) mg/dl Calcium 8.3 L 8.4 L 9.0 (8.6-10.3) mg/dl Phosphorus 2.3 L D (2.5-4.9) mg/dl Magnesium 2.0 (1.7-2.4) mg/dl Total Bilirubin 0.7 (0.2-1.0) mg/dl AST 41 H (13-39) U/L ALT 74 H (7-52) U/L Alkaline Phosphatase 58 (34-104) U/L Total Protein 5.6 L (6.0-8.3) gm/dl Albumin 3.4 (3.4-5.0) gm/dl Globulin 2.2 L (2.5-4.0) gm/dl Albumin/Globulin Ratio 1.5 (0.9-2) 05/11/24 05/11/24 Range/Units 15:55 10:08 WBC RBC Hgb Hct MCV MCH MCHC Plt Count Sodium 138 136 (136-145) mmol/L Potassium 2.7 L 2.4 L* (3.5-5.1) mmol/L Chloride 100 95 L (98-107) mmol/L Carbon Dioxide 34 H 37 H (21-32) mmol/L Anion Gap 4 4 (3-11) BUN 4 L 4 L (6-23) mg/dl Creatinine 0.70 0.72 (0.6-1.4) mg/dl Est Cr Clr Drug Dosing 214.6 208.7 ml/min eGFR 131.95 130.84 BUN/Creatinine Ratio 5.7 L 5.6 L (10-20) Glucose 98 93 (70-99(Fasting)) mg/dl Calcium 8.4 L 8.8 (8.6-10.3) mg/dl Phosphorus (2.5-4.9) mg/dl Magnesium (1.7-2.4) mg/dl Total Bilirubin (0.2-1.0) mg/dl AST (13-39) U/L ALT (7-52) U/L Alkaline Phosphatase (34-104) U/L Total Protein (6.0-8.3) gm/dl Albumin (3.4-5.0) gm/dl Globulin (2.5-4.0) gm/dl Albumin/Globulin Ratio (0.9-2) Medications Administered Current Inpatient Medications Acetaminophen (Acetaminophen 325 Mg Tab) 650 mg PO Q4H PRN PRN Reason: Pain or Fever Stop: 06/09/24 19:15 Dicyclomine HCl (Dicyclomine Hcl 10 Mg Cap) 10 mg PO TID SOULEYMANE Stop: 06/09/24 20:59 Last Admin: 05/11/24 20:05 Dose: Not Given Thiamine HCl 200 mg/ Sodium (Chloride) 52 mls @ 210 mls/hr IV Q8H SOULEYMANE Stop: 06/09/24 20:59 Last Infusion: 05/12/24 06:37 Dose: Infused Metoclopramide HCl (Metoclopramide Hcl 10 Mg Tablet) 10 mg PO ACHS SOULEYMANE Stop: 06/10/24 11:29 Last Admin: 05/12/24 07:11 Dose: 10 mg Multivitamins/Folic Acid/Vitamin C (Multivitamin Chewable Tab) 1 tab PO QAM SOULEYMANE Stop: 06/10/24 12:59 Last Admin: 05/11/24 14:42 Dose: 1 tab Promethazine HCl (Promethazine Hcl 25 Mg Supp) 25 mg NE Q6H PRN PRN Reason: Nausea Stop: 06/09/24 19:15 (4) Schizophrenia Schizophrenia type: other Qualified Code(s): F20.89 - Other schizophrenia (7) ADHD Attention deficit-hyperactivity disorder type: unspecified Qualified Code(s): F90.9 - Attention-deficit hyperactivity disorder, unspecified type
--- NOTE | 2024-05-12 10:32 | Gastroenterology Progress Note ---
Date of Service May 12, 2024 Assessment & Plan (1) Intractable nausea and vomiting: Plan: Seems to have improved with metoclopramide. Will see what happens with diarrhea once he starts eating. Admission and Anticipated Discharge Date Admission Date: May 10, 2024 Subjective No vomiting since metoclopramide started. He says he "didn't have any vomiting after the medicine was started yesterday but now its today". He is having some diarrhea again. Physical Exam Physical Exam: Appears comfortable Constitutional: WD/WN, vitals as above Results & Data Vital Signs (Past 12 Hours) Vital Signs Temp Pulse Pulse Resp BP BP Pulse Ox 05/12/24 07:00 36.6 C 78 18 102/62 100 05/12/24 02:37 36.5 C 76 18 147/67 H 99 05/12/24 00:31 82 05/11/24 23:01 36.8 C 79 18 107/77 95 O2 Del Method 05/12/24 07:00 Room Air 05/12/24 02:37 Room Air 05/12/24 00:31 05/11/24 23:01 Room Air
[2024-05-12] MEDS: POTASSIUM CHLORIDE CRTAB 20 MEQ TABCR PO STA (12:12)
[2024-05-12 15:02] LABS: BUN Creatinine Ratio 3.1 (10-20); Calcium 8.8 mg/dl (8.6-10.3); Creatinine Clr Calc Pharmacy 235.9 ml/min; Potassium 3.9 mmol/L (3.5-5.1)
--- NOTE | 2024-05-12 15:44 | Nephrology Progress Note ---
Date of Service May 12, 2024 Assessment & Plan (1) Hypokalemia: Plan: improving/resolved >> critical hypokalemia presenting in setting of intractable N/V after per mom a month of living on water and watered down gatorade. K 2.2 on presentation, 2.5 this am. on RA, hypotensive; no h/o cardiac disease. severe total body K depletion which is improving. >reasonable to hold K rich fluids -agree w/ BMP in AM -diet ad hayde -count # of BM will sign off; continue to monitor BMP at least daily and replete K by mouth where able no OP neph f/u needed but DO suggest PCP check BMP, mag, phos weekly x 3; if issues, pls refer to [facility] [place] nephro for OP assistance w/ electrolytes; at hospital d/c would send out on K similar to daily amount he's needing po here; PCP can always taper (2) Hyponatremia: Plan: resolved w/ hydration; corrected appropriate rate. presenting sodium 127; up to 131 today; in pt w/ intermittent hyponatremia over past month low 130s; rate of correction of sNa clinically less relevant here than improving potassium. uOsms on presentation c/w low solute intake >> no indication for fluid limit currently; monitor Na w/ frequent BMP; no indication for fluid limit when he's on clear liquid diet Admission and Anticipated Discharge Date Admission Date: May 10, 2024 Subjective back on regular diet as of midday meal; n/v improved/resolved until then; IVF stopped after 3L. tolerated lunch; eating supper happily w/ mom bedside when I saw him. no sob, no n/v, ongoing diarrhea; no edema or voiding c/o. Review of Systems 2 Review of Systems: All systems reviewed & are unremarkable except as noted in Subjective Physical Exam 2 Constitutional: well developed, well nourished, + obese and cooperative; no acute distress Eyes: EOM intact bilaterally ENMT: Mouth: + dry oral mucous membranes Neck: no nuchal rigidity Respiratory: normal respiratory effort Auscultation: + diminished lung sounds Cardiovascular: RRR, no murmur, no edema Gastrointestinal (Abdomen): Inspection/Auscultation: normal bowel sounds P ercussion/Palpation: abdomen soft; abdomen nontender Musculoskeletal: Extremities: strength 5/5 throughout Skin: no rashes, warm and dry Psychiatric: Orientation: alert and oriented x 3 Results & Data Vital Signs (Past 12 Hours) Vital Signs Temp Pulse Resp BP BP Pulse Ox O2 Del Method 05/12/24 15:15 36.6 C 95 H 18 113/79 97 Room Air 05/12/24 11:06 36.6 C 96 H 20 95/64 L 96 Room Air 05/12/24 07:00 36.6 C 78 18 102/62 100 Room Air Laboratory Results 05/12/24 05:31 05/12/24 14:31
--- NOTE | 2024-05-13 09:33 | Gastroenterology Progress Note ---
Date of Service May 13, 2024 Assessment & Plan (1) Intractable nausea and vomiting: Plan: 23 year old male with history of autism, ADHD, schizophrenia, depression re- admitted w/ nausea/vomiting who notes the nausea/vomiting has not improved much since his norovirus infection 04/08/24. He previously was using marijuana products but these have been stopped for about one month - May continue diet as tolerated - Continue Phenergan as needed - Cautious use of Reglan - He should have an outpatient GI evaluation - As his care team is [facility] this can be arranged through [facility] GI - Recommend OP EGD/Colonoscopy evaluation I spent a total of 40 minutes on the date of service in review of patient's record, and previously obtained information in person and appropriate medical visit, discussion and education of plan, with patient and/or caregiver, placing orders for tests/referral/procedures as medically necessary and documentation of pertinent clinical information in patient's medical records for their visit today. Admission and Anticipated Discharge Date Admission Date: May 10, 2024 Supervising Physician Co-Signing Physician Notes I saw and examined this patient with our nurse practitioner and agree with her assessment and plan. Clinically improved resolved nausea and vomiting on pre sent regimen tolerating p.o. and diarrhea has resolved based on patient's history. If symptoms persist can follow-up with us as an outpatient. Subjective Pt was seen and evaluated, chart reviewed. Tolerating breakfast. feeling well. No abd pain, nausea/vomiting since Reglan was given. Stools are improving - less frequent. Starting to become formed. Notes 4-5 BMs yesterday. None this AM. Review of Systems Review of Systems: All other findings negative except as noted in HPI. Physical Exam Constitutional: WD/WN, vitals as above Respiratory: normal respiratory effort, lungs clear to auscultation Cardiovascular: Rate/Rhythm: regular rate and regular rhythm Gastrointestinal (Abdomen): normal bowel sounds, soft, nontender, no hepatosplenomegaly Skin: no rashes, warm and dry Results & Data Results & Data Vital Signs (Past 12 Hours) Vital Signs Temp Pulse Pulse Resp BP Pulse Ox O2 Del Method 05/13/24 07:32 98.2 F 92 H 18 129/69 100 Room Air 05/13/24 07:00 92 H 05/13/24 07:00 Room Air 05/13/24 02:52 97.5 F L 86 20 108/78 95 Room Air 05/13/24 00:04 97.9 F 86 20 105/60 100 Room Air 05/12/24 23:55 99 H 05/12/24 22:48 Room Air Laboratory Results 05/12/24 Range/Units 14:31 Sodium 137 (136-145) mmol/L Potassium 3.9 (3.5-5.1) mmol/L Chloride 103 (98-107) mmol/L Carbon Dioxide 31 (21-32) mmol/L Anion Gap 3 (3-11) BUN 2 L (6-23) mg/dl Creatinine 0.64 (0.6-1.4) mg/dl Est Cr Clr Drug Dosing 235.9 ml/min eGFR 135.57 BUN/Creatinine Ratio 3.1 L (10-20) Glucose 83 (70-99(Fasting)) mg/dl Calcium 8.8 (8.6-10.3) mg/dl Magnesium 2.0 (1.7-2.4) mg/dl PG Care Time/CCT Total # of Minutes Spent Total Time Spent with Patient: Total time spent is greater than 50% in coordination of care (as documented) at patient's floor/unit and/or counseling patient: Coding Level of Care Code 18886 SUB INP/OBS CARE 2/35MIN Diagnoses Intractable nausea and vomiting R11.2
[2024-05-13 10:11] LABS: Hematocrit (blood only) 33.5 % (42.0-52.0); Hemoglobin 11.8 g/dl (14.0-18.0); Mean Corpuscular Hemoglobin 27.4 pg (25.0-34.0); Mean Corpuscular Hgb Conc 35.2 g/dL (32.0-36.0); Mean Corpuscular Volume 77.9 fL (80.0-100.0); Mean Platelet Volume 8.7 fL (9.4-12.4); Platelet Count 205 K/uL (130-400); RDW Standard Deviation 33.5 fL (36.4-46.3); White Blood Count 5.91 K/ul (4.8-10.8)
[2024-05-13 10:26] LABS: Anion Gap 2 (3-11); Blood Urea Nitrogen < 2 mg/dl (6-23); Calcium 9.2 mg/dl (8.6-10.3); Carbon Dioxide 33 mmol/L (21-32); Chloride 104 mmol/L (98-107); Glucose 106 mg/dl (70-99(Fasting)); Magnesium 1.8 mg/dl (1.7-2.4); Phosphorus 1.5 mg/dl (2.5-4.9); Potassium 2.7 mmol/L (3.5-5.1); Sodium 139 mmol/L (136-145)
[2024-05-13] MEDS ORDERED: POTASSIUM PHOS 3 MMOL/1 ML INFUSION IV STA (11:35)
[2024-05-13] MEDS: POTASSIUM CHLORIDE CRTAB 20 MEQ TABCR PO STA (11:49)
--- NOTE | 2024-05-13 12:02 | Hospitalist Progress Note ---
Date of Service May 13, 2024 Assessment & Plan (1) Intractable nausea and vomiting: (2) Hyponatremia: (3) Hypokalemia: (4) Schizophrenia: (5) Major depressive disorder, recurrent, severe with psychotic features: (6) Autism spectrum disorder: (7) ADHD: Plan Plan This is a 23-year-old male with PMH of spectrum disorder, recent RSV and norovirus and other medical problems listed below who presents with intractable vomiting and found to have hypokalemia and hyponatremia. Intractable nausea and vomiting Ongoing intermittent N/V since admission at the end of March ( RSV + 04/04 and norovirus + 04/07) Transaminitis attributed to norovirus at that time - CT abd/pelvis with fatty liver, abd ultrasound WNL Continue Bentyl, antiemetics, fluids and lyte repletion as below CMP with mildly elevated ALT 76, tbili 1.5 Utox pending (posit. for marijuana , denied use for >1mo to admitting team) GI consult given persistent N/V - persistent nausea and vomiting since he was diagnosed with norovirus. He denies pain with it. He is on no new meds to cause this problem. Occasionally when people get an acute gastroenteritis their symptoms will linger with "postinfectious gastroparesis". Usually this will subside on its own but occasionally it needs help. I will add in metoclopramide to his regimen--if no interactions with psych meds--and see how he responds before we jump in with invasive procedures. 05/12/24 Pt feels better today and tolerating some po intake, no emesis today, 6 loose stools 3/3 no emesis so far and no stools this AM. K, Phos low again Hypokalemia, hypophosphatemia K 2.3 in setting of poor PO intake replaced and re-checked, several times yesterday Nephrology consulted and discussed with - cont. replacement of K and cont. close monitoring will recheck BMP PM and AM Hyponatremia Na 127 in setting of poor PO intake for weeks Serum osm 258, urine osm and lytes Given 2 L NSS in ED current Na 139 Nephrology consulted and following electrolytes Prolonged qtc In the past, EKG in ED w/ prolonged QTc 529 Has not been taking home psych meds per psychiatrist recommendation until vo miting subsides and he can tolerate solids - cont. to hold psych meds DVT Ppx: teds, early ambulation Code status: FULL PCP: Dr. Rojas Dispo: PCU Admission and Anticipated Discharge Date Admission Date: May 10, 2024 Subjective Pt seen in follow up of n/v/d/, hypokalemia hx of Norovirus in March Currently lying in bed in [facility], said when he tried to eat anything he had emesis at home Now he feels better, able to tolerate some po intake, no emesis here, however reports about 6 loose stools yesterday. None today yet. denies fever, chills, chest pain, shortness of breath. denies abd. pain No blood in stool, and no blood in emesis Potassium low again today, phos low Review of Systems Review of Systems: All systems reviewed & are unremarkable except as noted in Subjective Physical Exam Physical Exam: General: morbidly obese young M in [facility] Respiratory: CTAB Cardiovascular: RRR, no murmur, no edema Chest: normal inspection of chest Abdomen: Soft, nontender, +obese Musculoskeletal: moves extremities Skin: no rashes, warm and dry normal turgor Neurologic: awake, alert, no face palsy, speech fluent, answers appropriately, moves all extremities Results & Data Results & Data Vital Signs (Past 12 Hours) Vital Signs Temp Pulse Pulse Resp BP Pulse Ox O2 Del Method 05/13/24 11:15 36.6 C 82 20 126/70 98 Room Air 05/13/24 07:32 36.8 C 92 H 18 129/69 100 Room Air 05/13/24 07:00 92 H 05/13/24 07:00 Room Air 05/13/24 02:52 36.4 C L 86 20 108/78 95 Room Air 05/13/24 00:04 36.6 C 86 20 105/60 100 Room Air Laboratory Results 05/13/24 05/12/24 Range/Units 09:43 14:31 WBC 5.91 (4.8-10.8) K/ul RBC 4.30 L (4.70-6.10) M/uL Hgb 11.8 L (14.0-18.0) g/dl Hct 33.5 L (42.0-52.0) % MCV 77.9 L (80.0-100.0) fL MCH 27.4 (25.0-34.0) pg MCHC 35.2 (32.0-36.0) g/dL RDW Std Deviation 33.5 L (36.4-46.3) fL RDW Coeff of [place] 12.0 (11.5-14.5) % Plt Count 205 (130-400) K/uL MPV 8.7 L (9.4-12.4) fL Sodium 139 137 (136-145) mmol/L Potassium 2.7 L D 3.9 (3.5-5.1) mmol/L Chloride 104 103 (98-107) mmol/L Carbon Dioxide 33 H 31 (21-32) mmol/L Anion Gap 2 L 3 (3-11) BUN < 2 L 2 L (6-23) mg/dl Creatinine 0.70 0.64 (0.6-1.4) mg/dl Est Cr Clr Drug Dosing 216.0 235.9 ml/min eGFR 131.95 135.57 BUN/Creatinine Ratio TNP 3.1 L (10-20) Glucose 106 H 83 (70-99(Fasting)) mg/dl Calcium 9.2 8.8 (8.6-10.3) mg/dl Phosphorus 1.5 L* (2.5-4.9) mg/dl Magnesium 1.8 2.0 (1.7-2.4) mg/dl Medications Administered Current Inpatient Medications Acetaminophen (Acetaminophen 325 Mg Tab) 650 mg PO Q4H PRN PRN Reason: Pain or Fever Stop: 06/09/24 19:15 Dicyclomine HCl (Dicyclomine Hcl 10 Mg Cap) 10 mg PO TID SOULEYMANE Stop: 06/09/24 20:59 Last Admin: 05/13/24 08:37 Dose: Not Given Metoclopramide HCl (Metoclopramide Hcl 10 Mg Tablet) 10 mg PO ACHS [facility] Stop: 06/10/24 11:29 Last Admin: 05/13/24 11:46 Dose: 10 mg Multivitamins/Folic Acid/Vitamin C (Multivitamin Chewable Tab) 1 tab PO QAM SOULEYMANE Stop: 06/10/24 12:59 Last Admin: 05/13/24 08:37 Dose: 1 tab Potassium Phosphate (Pot Phosphate Monobasic W/ Sod Tab) 1 tab PO Q8H SOULEYMANE Stop: 05/14/24 12:01 Promethazine HCl (Promethazine Hcl 25 Mg Supp) 25 mg [place] Q6H PRN PRN Reason: Nausea Stop: 06/09/24 19:15 Thiamine HCl (Thiamine Hcl 100 Mg Tab) 200 mg PO DAILY SOULEYMANE Stop: 06/13/24 08:59 (4) Schizophrenia Schizophrenia type: other Qualified Code(s): F20.89 - Other schizophrenia (7) ADHD Attention deficit-hyperactivity disorder type: unspecified Qualified Code(s): F90.9 - Attention-deficit hyperactivity disorder, unspecified type
[2024-05-13] MEDS: POT PHOSPHATE MONOBASIC W/ SOD TAB PO SCH (13:54)
[2024-05-13 16:12] LABS: Marijuana Quant, GCMS Urine 802 ng/mL (<5)
[2024-05-13 16:42] LABS: Anion Gap 6 (3-11); Blood Urea Nitrogen < 2 mg/dl (6-23); Calcium 8.8 mg/dl (8.6-10.3); Carbon Dioxide 28 mmol/L (21-32); Chloride 106 mmol/L (98-107); Glucose 86 mg/dl (70-99(Fasting)); Phosphorus 2.7 mg/dl (2.5-4.9); Potassium 3.4 mmol/L (3.5-5.1); Sodium 140 mmol/L (136-145)
[2024-05-13 16:54] LABS: Adenovirus F 40/41 PCR Not Detected (NotDetected); Astrovirus PCR Not Detected (NotDetected); Campylobacter PCR Not Detected (NotDetected); Cryptosporidium PCR Not Detected (NotDetected); Cyclospora cayetanensis PCR Not Detected (NotDetected); Entamoeba histolytica PCR Not Detected (NotDetected); Enteroaggregative E.coli(EAEC) Not Detected (NotDetected); Enteropathogenic E.coli (EPEC) Not Detected (NotDetected); Enterotoxigenic E.coli (ETEC) Not Detected (NotDetected); Giardia lamblia PCR Not Detected (NotDetected); Norovirus GI/GII PCR Not Detected (NotDetected); Plesiomonas shigelloides PCR Not Detected (NotDetected); Rotavirus A PCR Not Detected (NotDetected); Salmonella PCR Not Detected (NotDetected); Sapovirus PCR Not Detected (NotDetected); Shiga-like Toxin E.coli (STEC) Not Detected (NotDetected); Shigella/Enteroinvasive E.coli Not Detected (NotDetected); Vibrio cholerae PCR Not Detected (NotDetected); Vibrio species PCR Not Detected (NotDetected); Yersinia enterocolitica PCR Not Detected (NotDetected)
[2024-05-13] MEDS: POTASSIUM CHLORIDE CRTAB 20 MEQ TABCR PO ONE (19:24)
[2024-05-14 06:22] LABS: Hematocrit (blood only) 35.2 % (42.0-52.0); Hemoglobin 12.2 g/dl (14.0-18.0); Mean Corpuscular Hemoglobin 27.3 pg (25.0-34.0); Mean Corpuscular Hgb Conc 34.7 g/dL (32.0-36.0); Mean Corpuscular Volume 78.7 fL (80.0-100.0); Mean Platelet Volume 9.3 fL (9.4-12.4); Platelet Count 222 K/uL (130-400); RDW Coefficient of Variation 12.2 % (11.5-14.5); RDW Standard Deviation 34.5 fL (36.4-46.3); Red Blood Count 4.47 M/uL (4.70-6.10); White Blood Count 6.25 K/ul (4.8-10.8)
[2024-05-14 06:28] LABS: BUN Creatinine Ratio 4.8 (10-20); Calcium 8.8 mg/dl (8.6-10.3); Creatinine Clr Calc Pharmacy 240.4 ml/min; Magnesium 1.7 mg/dl (1.7-2.4); Phosphorus 3.3 mg/dl (2.5-4.9); Potassium 3.3 mmol/L (3.5-5.1)
[2024-05-14] MEDS: THIAMINE HCL 100 MG TAB PO SCH (08:42)
[2024-05-14] MEDS: POTASSIUM CHLORIDE CRTAB 20 MEQ TABCR PO STA ×2 (09:18→17:44)
--- NOTE | 2024-05-14 10:03 | Hospitalist Progress Note ---
Date of Service May 14, 2024 Assessment & Plan (1) Intractable nausea and vomiting: (2) Hyponatremia: (3) Hypokalemia: (4) Schizophrenia: (5) Major depressive disorder, recurrent, severe with psychotic features: (6) Autism spectrum disorder: (7) ADHD: Plan Plan This is a 23-year-old male with PMH of spectrum disorder, recent RSV and norovirus and other medical problems listed below who presents with intractable vomiting and found to have hypokalemia and hyponatremia. Intractable nausea and vomiting Ongoing intermittent N/V since admission at the end of March ( RSV + 04/04 and norovirus + 04/07) Transaminitis attributed to norovirus at that time - CT abd/pelvis with fatty liver, abd ultrasound WNL Continue Bentyl, antiemetics, fluids and lyte repletion as below CMP with mildly elevated ALT 76, tbili 1.5 Utox pending (posit. for marijuana , denied use for >1mo to admitting team) UDS posit. for marijuana - discussed w/ the pt - and made him aware it can cause vomiting. Pt says he plans to decrease the use and possibly quit. GI consult given persistent N/V - persistent nausea and vomiting since he was diagnosed with norovirus. He denies pain with it. He is on no new meds to cause this problem. Occasionally when people get an acute gastroenteritis their symptoms will linger with "postinfectious gastroparesis". Usually this will subside on its own but occasionally it needs help. I will add in metoclopramide to his regimen--if no interactions with psych meds--and see how he responds before we jump in with invasive procedures. 05/12/24 Pt feels better today and tolerating some po intake, no emesis today, 6 loose stools / no emesis so far and no stools this AM. K, Phos low again 05/14 says yesterday had about 3-4 stools, getting more formed. Discussed his UDS, as above. Repleting electrolytes (K 3.3, Mag 1.7) Per GI - outpt endoscopy Hypokalemia, hypophosphatemia K 2.3 in setting of poor PO intake replaced and re-checked, several times Nephrology consulted and discussed with - cont. replacement of K and cont. close monitoring will recheck BMP PM and AM Hyponatremia Na 127 in setting of poor PO intake for weeks Serum osm 258, urine osm and lytes Given 2 L NSS in ED current Na 139 Nephrology consulted and following electrolytes Prolonged qtc In the past, EKG in ED w/ prolonged QTc 529 Has not been taking home psych meds per psychiatrist recommendation until vomiting subsides and he can tolerate solids - cont. to hold psych meds DVT Ppx: teds, early ambulation Code status: FULL PCP: Dr. Rojas Dispo: PCU Admission and Anticipated Discharge Date Admission Date: May 10, 2024 Subjective Pt seen in follow up of n/v/d/, hypokalemia hx of Norovirus in March UDS posit. for marijuana - discussed w/ the pt - and made him aware it can cause vomiting. Pt says he plans to decrease the use and possibly quit. Currently lying in bed in [facility], said when he tried to eat anything he had emesis at home Now he feels better, able to tolerate some po intake, no emesis here, however reports about 6 loose stools his first day here. Yesterday had about 3-4 and says it's getting more formed. denies fever, chills, chest pain, shortness of breath. denies abd. pain No blood in stool, and no blood in emesis Review of Systems Review of Systems: All systems reviewed & are unremarkable except as noted in Subjective Physical Exam Physical Exam: General: morbidly obese young M in [place] Respiratory: CTAB Cardiovascular: RRR, no murmur, no edema Chest: normal inspection of chest Abdomen: Soft, nontender, +obese Musculoskeletal: moves extremities Skin: no rashes, warm and dry normal turgor Neurologic: awake, alert, no face palsy, speech fluent, answers appropriately, moves all extremities Results & Data Results & Data Vital Signs (Past 12 Hours) Vital Signs Temp Pulse Pulse Resp BP BP Pulse Ox 05/14/24 07:11 36.7 C 86 18 117/82 99 05/14/24 07:00 104 H 05/14/24 03:38 36.8 C 109 H 20 128/91 97 05/13/24 23:00 88 05/13/24 22:46 36.7 C 87 16 97/65 L 100 O2 Del Method 05/14/24 07:11 Room Air 05/14/24 07:00 05/14/24 03:38 Room Air 05/13/24 23:00 05/13/24 22:46 Room Air Laboratory Results 05/14/24 05/13/24 05/13/24 Range/Units 05:21 15:50 15:15 WBC 6.25 (4.8-10.8) K/ul RBC 4.47 L (4.70-6.10) M/uL Hgb 12.2 L (14.0-18.0) g/dl Hct 35.2 L (42.0-52.0) % MCV 78.7 L (80.0-100.0) fL MCH 27.3 (25.0-34.0) pg MCHC 34.7 (32.0-36.0) g/dL RDW Std Deviation 34.5 L (36.4-46.3) fL RDW Coeff of [place] 12.2 (11.5-14.5) % Plt Count 222 (130-400) K/uL MPV 9.3 L (9.4-12.4) fL Sodium 139 140 (136-145) mmol/L Potassium 3.3 L 3.4 L D (3.5-5.1) mmol/L Chloride 108 H 106 (98-107) mmol/L Carbon Dioxide 25 28 (21-32) mmol/L Anion Gap 6 6 (3-11) BUN 3 L < 2 L (6-23) mg/dl Creatinine 0.63 0.60 (0.6-1.4) mg/dl Est Cr Clr Drug Dosing 240.4 252.0 ml/min eGFR 136.22 138.24 BUN/Creatinine Ratio 4.8 L TNP Glucose 81 86 (70-99(Fasting)) mg/dl Calcium 8.8 8.8 (8.6-10.3) mg/dl Phosphorus 3.3 2.7 D (2.5-4.9) mg/dl Magnesium 1.7 (1.7-2.4) mg/dl Stl C. cayetanensis PCR Not Detected (NotDetected) Stool Rotavirus A PCR Not Detected (NotDetected) Stl Adenov F 40/41 PCR Not Detected (NotDetected) Stool Astrovirus (PCR) Not Detected (NotDetected) Stool Campylobacter PCR Not Detected (NotDetected) Stl C. diff Tox B Gene Negative Cdiff Gene (Neg) Stool Cryptosporidium PCR Not Detected (NotDetected) Stl E.coli Shiga Tox PCR Not Detected (NotDetected) Stl Enterotoxigenic E PCR Not Detected (NotDetected) Stool EPEC (PCR) Not Detected (NotDetected) Stool EAEC (PCR) Not Detected (NotDetected) Stl E. histolytica PCR Not Detected (NotDetected) Stool Giardia Lamblia PCR Not Detected (NotDetected) Stool Salmonella PCR Not Detected (NotDetected) Stool Sapovirus (PCR) Not Detected (NotDetected) Stl P. shigelloides PCR Not Detected (NotDetected) Stl Shigella/EIEC PCR Not Detected (NotDetected) St Y.enterocolitica PCR Not Detected (NotDetected) Stool Vibrio (PCR) Not Detected (NotDetected) Stl Vibrio cholerae PCR Not Detected (NotDetected) Stl Norovirus GI/GII PCR Not Detected (NotDetected) U Marijuana THC Carboxy (<5) ng/mL Drug Screen Comment 05/13/24 05/11/24 Range/Units 09:43 05:00 WBC 5.91 (4.8-10.8) K/ul RBC 4.30 L (4.70-6.10) M/uL Hgb 11.8 L (14.0-18.0) g/dl Hct 33.5 L (42.0-52.0) % MCV 77.9 L (80.0-100.0) fL MCH 27.4 (25.0-34.0) pg MCHC 35.2 (32.0-36.0) g/dL RDW Std Deviation 33.5 L (36.4-46.3) fL RDW Coeff of [place] 12.0 (11.5-14.5) % Plt Count 205 (130-400) K/uL MPV 8.7 L (9.4-12.4) fL Sodium 139 (136-145) mmol/L Potassium 2.7 L D (3.5-5.1) mmol/L Chloride 104 (98-107) mmol/L Carbon Dioxide 33 H (21-32) mmol/L Anion Gap 2 L (3-11) BUN < 2 L (6-23) mg/dl Creatinine 0.70 (0.6-1.4) mg/dl Est Cr Clr Drug Dosing 216.0 ml/min eGFR 131.95 BUN/Creatinine Ratio TNP Glucose 106 H (70-99(Fasting)) mg/dl Calcium 9.2 (8.6-10.3) mg/dl Phosphorus 1.5 L* (2.5-4.9) mg/dl Magnesium 1.8 (1.7-2.4) mg/dl Stl C. cayetanensis PCR (NotDetected) Stool Rotavirus A PCR (NotDetected) Stl Adenov F 40/41 PCR (NotDetected) Stool Astrovirus (PCR) (NotDetected) Stool Campylobacter PCR (NotDetected) Stl C. diff Tox B Gene (Neg) Stool Cryptosporidium PCR (NotDetected) Stl E.coli Shiga Tox PCR (NotDetected) Stl Enterotoxigenic E PCR (NotDetected) Stool EPEC (PCR) (NotDetected) Stool EAEC (PCR) (NotDetected) Stl E. histolytica PCR (NotDetected) Stool Giardia Lamblia PCR (NotDetected) Stool Salmonella PCR (NotDetected) Stool Sapovirus (PCR) (NotDetected) Stl P. shigelloides PCR (NotDetected) Stl Shigella/EIEC PCR (NotDetected) St Y.enterocolitica PCR (NotDetected) Stool Vibrio (PCR) (NotDetected) Stl Vibrio cholerae PCR (NotDetected) Stl Norovirus GI/GII PCR (NotDetected) U Marijuana THC Carboxy 802 H (<5) ng/mL Drug Screen Comment SEE NOTE Medications Administered Current Inpatient Medications Acetaminophen (Acetaminophen 325 Mg Tab) 650 mg PO Q4H PRN PRN Reason: Pain or Fever Stop: 06/09/24 19:15 Dicyclomine HCl (Dicyclomine Hcl 10 Mg Cap) 10 mg PO TID SOULEYMANE Stop: 06/09/24 20:59 Last Admin: 05/14/24 08:41 Dose: Not Given Metoclopramide HCl (Metoclopramide Hcl 10 Mg Tablet) 10 mg PO ACHS SOULEYMANE Stop: 06/10/24 11:29 Last Admin: 05/14/24 07:03 Dose: 10 mg Multivitamins/Folic Acid/Vitamin C (Multivitamin Chewable Tab) 1 tab PO QAM [facility] Stop: 06/10/24 12:59 Last Admin: 05/14/24 08:41 Dose: 1 tab Potassium Phosphate (Pot Phosphate Monobasic W/ Sod Tab) 1 tab PO Q8H SOULEYMANE Stop: 05/14/24 12:01 Last Admin: 05/14/24 04:48 Dose: 1 tab Promethazine HCl (Promethazine Hcl 25 Mg Supp) 25 mg [place] Q6H PRN PRN Reason: Nausea Stop: 06/09/24 19:15 Thiamine HCl (Thiamine Hcl 100 Mg Tab) 200 mg PO DAILY [facility] Stop: 06/13/24 08:59 Last Admin: 05/14/24 08:42 Dose: 200 mg (4) Schizophrenia Schizophrenia type: other Qualified Code(s): F20.89 - Other schizophrenia (7) ADHD Attention deficit-hyperactivity disorder type: unspecified Qualified Code(s): F90.9 - Attention-deficit hyperactivity disorder, unspecified type
[2024-05-14] MEDS: MAGNESIUM SULFATE / D5W 1 GM/100 ML BAG IV ONE ×2 (10:44→17:44)
[2024-05-14 15:35] LABS: BUN Creatinine Ratio 3.2 (10-20); Calcium 8.9 mg/dl (8.6-10.3); Creatinine Clr Calc Pharmacy 240.4 ml/min; Magnesium 1.8 mg/dl (1.7-2.4); Phosphorus 5.6 mg/dl (2.5-4.9); Potassium 3.5 mmol/L (3.5-5.1)
[2024-05-15 06:42] LABS: BUN Creatinine Ratio 3.7 (10-20); Calcium 8.6 mg/dl (8.6-10.3); Creatinine Clr Calc Pharmacy 281.2 ml/min; Magnesium 2.1 mg/dl (1.7-2.4); Phosphorus 4.8 mg/dl (2.5-4.9); Potassium 3.6 mmol/L (3.5-5.1)
[2024-05-15 08:19] VITALS: O2SAT 98
[2024-05-15 11:39] VITALS: BP 107/71; RESP 15; TEMP 98.6
--- NOTE | 2024-05-15 12:12 | Discharge Summary ---
Discharge Summary Date of Service May 15, 2024 Principal Dx & Hospital Course #1 = Principal Diagnosis (1) Intractable nausea and vomiting: (2) Hyponatremia: Plan This is a 23-year-old male with PMHx significant for Autism spectrum disorder, schizophrenia, chronic cannibis use, recent RSV and norovirus infections who presented with intractable vomiting and was found to be severely hyponatremic and hypokalemic. Intractable nausea and vomiting Hx of Cannibis Use Recent RSV and Norovirus Infection Pt stated that he had ongoing intermittent N/V since admission at the end of March ( RSV + 04/04 and norovirus + 04/07) Transaminitis attributed to norovirus at that time - CT abd/pelvis with fatty liver, abd ultrasound WNL Repeat stool Cx negative Treated with Bentyl, antiemetics, fluids and electrolyte repletion as below CMP with mildly elevated ALT 76, tbili 1.5 Utox with positive screen for marijuana, U THC carboxy level elevated at 802. (Pt denies marijuana use for >1mo) GI consulted given persistent N/V, recommended/stated the following: "...May continue diet as tolerated - Continue Phenergan as needed - Cautious use of Reglan - He should have an outpatient GI evaluation - As his care team is [facility] this can be arranged through [facility] GI - Recommend OP EGD/Colonoscopy evaluation..." On the day of discharge, pt with minimal complaints. N/V had resolved and stated that his stool was now formed. He was discharged home with renewal of his promethazine suppositories and advised to closely follow up with his PCP and GI as noted above. Hypokalemia K 2.3 on admission in setting of poor PO intake and N/V Repleted Nephrology was consulted given other electrolyte abnormalities as well and recommended/stated the following per Dr Amador: "...no OP neph f/u needed but DO suggest PCP check BMP, mag, phos weekly x 3; if issues, pls refer to [facility] nephro for OP assistance w/ electrolytes; at hospital d/c would send out on K similar to daily amount he's needing po here; PCP can always taper..." K 3.6 on discharge. Discharged with a daily 20mEq supplement renewal and advised to closely followup with pcp and Nephrology as needed as indicated above. Hyponatremia Na 127 on admission in setting of poor PO intake for weeks and N/V Serum osm 258, urine osm 118, urine sodium 40 Was hydrated Nephrology recommended/stated the following: "...resolved w/ hydration; corrected appropriate rate. presenting sodium 127; up to 131 today; in pt w/ intermittent hyponatremia over past month low 130s; rate of correction of sNa clinically less relevant here than improving potassium. uOsms on presentation c/w low solute intake >> no indication for fluid limit currently; monitor Na w/ frequent BMP; no indication for fluid limit when he's on clear liquid diet..." On the day of discharge sodium 140. Close PCP follow up Prolonged qtc In the past admitting EKG with qtc 529 Has not been taking home psych meds per psychiatrist recommendation until vomiting subsides and he can tolerate solids Avoid qtc prolonging meds PCP followup Notes For Next Care Provider Per GI: "...He should have an outpatient GI evaluation - As his care team is [facility] this can be arranged through [facility] GI - Recommend OP EGD/Colonoscopy evaluation..." Per Nephrology: "no OP neph f/u needed but DO suggest PCP check BMP, mag, phos weekly x 3; if issues, pls refer to [facility] nephro for OP assistance w/ electrolytes; at hospital d/c would send out on K similar to daily amount he's needing po here; PCP can always taper Avoid qtc prolonging meds Medication Changes From Visit Renewed: KCl 20mEq daily promethazine suppositroy [place] q6h PRN for N/V Admission HPI Per Admitting Provider This is a 23-year-old male with PMH of schizophrenia, autism spectrum disorder, ADD, recent RSV and norovirus and other medical problems listed below who presents with intractable vomiting. Had RSV 04/04 and norovirus 04/07 resulting in admission to our service 04/07-04/11. Saw seen by GI at that time and transaminitis felt to be 2/[address] with fatty liver on imaging, abdominal ultrasound negative. Since discharge home, has really only been able to tolerate a clear diet. Every time he feels he is doing better and eats something bland like applesauce for a day or two, he feels sick and starts to vomit again. No hematemesis. Has only been taking Bentyl PO and Phenergan suppositories out of his home medications; was instructed by psychiatrist to hold all medications for mood and ADD until vomiting subsides. Last vaped marijuana >1 month. Feeling associated generalized weakness. No F/C, abdominal pain, dysuria. Intermittent diarrhea but much less than before. No hematochezia or melena. Admission Exam Per Admitting Provider Constitutional: Alert oriented x 3; not in distress. Respiratory: Bilateral vesicular breath sound Cardiovascular: RRR, no murmur, no edema Vessels: no JVD or carotid bruit Chest: normal inspection of chest Abdomen: Soft, nontender Musculoskeletal: no cyanosis or clubbing, extremities motor strength 5/5 Skin: no rashes, warm and dry normal turgor Neurologic: PERRL, EOMI, accommodation nl, no face palsy, no dysarthria CN's II- XI intact bilaterally and moves all extremities Psychiatric: A+Ox3, euthymic affect Discharge Exam General: Alert, oriented. No acute distress Psych: Appropriate mood and affect Neuro: No gross deficits HEENT: NC/AT Chest: Nontender to palpation. CV: RRR Resp: Breath sounds clear bilaterally, no increased effort of breathing Abdomen:Soft, nontender, nondistended Extremities: No edema in lower extremities bilaterally. Updated Medication List Medication Instructions Recorded Confirmed Type dexmethylphenidate 10 mg tablet 10 mg PO TID 02/12/18 05/10/24 History guanfacine 4 mg tablet,extended 4 mg PO QAM 11/21/20 05/10/24 History release 24 hr sertraline 100 mg tablet 200 mg PO QAM 11/21/20 05/10/24 History buspirone 15 mg tablet 22.5 mg PO BID 04/04/24 05/10/24 History lurasidone 80 mg tablet 80 mg PO QAM 04/04/24 05/10/24 History dicyclomine 10 mg capsule 10 mg PO TID #15 caps 04/15/24 05/10/24 Rx omega-3 acid ethyl esters 1 gram 1 cap PO BID 05/10/24 05/10/24 History capsule potassium chloride 20 mEq 20 meq PO DAILY #30 tabs 05/15/24 Rx tablet,extended release promethazine 25 mg rectal 1 mg [place] Q6H PRN Nausea #30 ea 05/15/24 Rx suppository Hospital Stay Data Consultations 05/10/24 16:53 ED Decision to Admit Stat 05/10/24 17:36 Consult Gastroenterology Routine 05/11/24 08:00 Consult Nephrology Routine Pending Results Patient Have Any Pending Studies at Discharge: No Discharge Instructions Given to Patient (Per Discharging Provider) Ab, Ankit were admitted and treated for intractable nausea and vomiting. Your symptoms improved while in the hospital. You were seen by the ticket dispenser changer who recommends that you continue with promethazine as needed at home. Your home prescription was renewed so you could use it if your symptoms returned. You were also treated for electrolyte abnormalities, some of which were very severe. You were seen by the daub color mixer who recommended that you continue with a daily potassium supplement. Your home potassium chloride medication was renewed for you. Please keep close follow up with your primary care provider and gastroenterology after discharge. You will need to have procedures done with gastroenterology for further evaluation as an outpatient. Please do not hesitate to come back to the emergency room if your symptoms worsen or return. It was a pleasure taking care of you while you were here. Total Time Total Time Spent Total Time Spent (In Minutes): 60
[2024-05-15 12:15] VITALS: PULSE 108
== END 2024-05-15 13:17 | disposition home or self-care (01) | DRG 641 ==
LOC: ED 13:57 → SUATTDRO 16:55 → 2E 16:55